=== PATIENT | female | born 1960 | race Caucasian/White ===

== ENCOUNTER 2018-08-27 03:18 | Emergency (ER) | payer BC, OTHER ==
[~2018-08-27] VITALS: Ht 162.6 cm; Wt 63.5 kg
[~2018-08-27 03:18] MED LIST: ZOLOFT50 MG PO
--- OUTSIDE RECORDS SUMMARY | 2018-08-27 03:21 | XMS REPORT | CCD ---
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
--- OUTSIDE RECORDS SUMMARY | 2018-08-27 03:21 | XMS REPORT | Clinical Summary ---
Author Author 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 Last Filed Vital Signs Time Taken Vital Sign Reading 08/10/2018 10:30 PM CDT Blood Pressure 105/72 08/10/2018 10:30 PM CDT Pulse 62 08/10/2018 4:34 PM CDT Temperature 36.6 C (97.9 F) 08/10/2018 10:30 PM CDT Respiratory Rate 17 08/10/2018 10:30 PM CDT Oxygen Saturation 96% - Inhaled Oxygen - Concentration - Weight - - Height - - Body Mass Index - Plan of Treatment Not on file Procedures Comments Procedure Name Priority Date/Time Associated Diagnosis REPORT OF PROCEDURE - 08/14/2018 ENDOSCOPY SCAN 5:00 PM CDT URINALYSIS W/ MICROSCOPIC STAT 08/10/2018 7:16 PM CDT CBC W/PLT COUNT & AUTO STAT 08/10/2018 DIFFERENTIAL 7:15 PM CDT B-TYPE NATRIURETIC FACTOR STAT 08/10/2018 (BNP) 7:15 PM CDT APTT STAT 08/10/2018 7:15 PM CDT PROTHROMBIN TIME/INR STAT 08/10/2018 7:15 PM CDT CBC W/PLT COUNT & AUTO STAT 08/10/2018 DIFFERENTIAL 7:15 PM CDT MAGNESIUM STAT 08/10/2018 7:15 PM CDT COMPREHENSIVE METABOLIC STAT 08/10/2018 PANEL 7:15 PM CDT TROPONIN I STAT 08/10/2018 7:[address] BRAIN WITHOUT IV STAT 08/10/2018 CONTRAST 6:12 PM CDT ED ECG INTERPRETATION Routine 08/10/2018 5:58 PM CDT ECG 12-LEAD Routine 08/10/2018 4:39 PM CDT Procedure Note - Interface, External Ris In - 08/10/2018 6:21 PM CDT Ventricula r Rate 65 BPM Atrial Rate 65 BPM P-R Interval 170 ms QRS Duration 94 ms Q-T Interval 422 ms QTC Calculatio n(Bazett) 438 ms P Sutton 69 degrees R Sutton -56 degrees T Sutton 66 degrees Normal sinus rhythm Incomplete right bundle branch block Left anterior fascicular block Cannot rule out Anterior infarct , age undetermin ed Abnormal ECG No previous ECGs available ECG 12-LEAD STAT 08/10/2018 4:39 PM CDT after 08/26/2017 Results * EKG-SCANNED (08/14/2018 5:00 PM CDT) Narrative Performed At * Urinalysis w/Microscopic (08/10/2018 7:16 PM CDT) Color, UA Light Yellow [facility] Clarity, UA Clear [facility] Specific [place], UA 1.006 1.001 - 1.035 [facility] pH, UA 5.5 5.0 - 8.0 [facility] Protein, UA Negative Negative [facility] Glucose, UA Negative Negative [facility] Ketones, UA 10 mg/dL (A) Negative [facility] Bilirubin, UA Negative Negative [facility] Blood, UA Small (A) Negative [facility] Nitrite, UA Negative Negative [facility] Leukocytes, UA Small (A) Negative [facility] Urobilinogen, UA 0.2 0.2 - 1.0 mg/dL [facility] RBC, UA 2 /HPF [facility] WBC, UA 3 /HPF [facility] Mucus Rare [facility] Squam Epithel, UA 1 /HPF [facility] Specimen Source Urine, Clean Catch [facility] Specimen Urine Performing Organization Address City/State/Zipcode Phone Number [facility] [address] [place] [address] [facility] * CBC with platelet count + automated diff (08/10/2018 7:15 PM CDT) WBC 9.0 3.5 - 10.5 K/L [facility] RBC 4.73 3.93 - 5.22 M/L [facility] Hemoglobin 15.0 11.2 - 15.7 GM/DL [facility] Hematocrit 45.7 (H) 34.1 - 44.9 % [facility] MCV 96.6 (H) 79.4 - 94.8 fL [facility] MCH 31.7 25.6 - 32.2 pg [facility] MCHC 32.8 32.2 - 35.5 GM/DL [facility] RDW 11.7 11.7 - 14.4 % [facility] Platelets 203 150 - 450 K/CU MM [facility] MPV 10.3 9.4 - 12.3 fL [facility] nRBC 0 0 - 0 /100 WBC [facility] % Neutros 63 % [facility] % Lymphs 28 % [facility] % Monos 7 % [facility] % Eos 1 % [facility] % Baso 1 % [facility] # Neutros 5.68 1.56 - 6.13 K/L [facility] # Lymphs 2.53 1.18 - 3.74 K/L [facility] # Monos 0.58 (H) 0.24 - 0.36 K/L [facility] # Eos 0.07 0.04 - 0.36 K/L [facility] # Baso 0.06 0.01 - 0.08 K/L [facility] Immature 0 0 - 1 % [facility] Granulocytes-[facility] Specimen Blood Performing Organization Address City/State/Zipcode Phone Number [facility] [address] [place] [address] [facility] * Troponin I (08/10/2018 7:15 PM CDT) Troponin I <0.01 0.00 - 0.03 ng/mL [facility] Specimen Blood Narrative Performed At Troponin I (TnI) levels must be interpreted in the context of the presenting [facility] symptoms and the clinical findings. Elevated TnI levels indicate myocardial [facility] damage, but are not specific for ischemic heart disease. Elevated TnI levels are seen in patients with other cardiac conditions (including myocarditis and congestive heart failure), and slight TnI elevations occur in patients with other conditions, including sepsis, renal failure, acidosis, acute neurological disease, and persistent tachyarrhythmia. Performing Organization Address City/State/Zipcode Phone Number [address] [address] [phone] [place] [address] * aPTT (08/10/2018 7:15 PM CDT) PTT 29.9 22.5 - 36.0 seconds [facility] Specimen Blood Performing Organization Address City/[facility] Phone Number [address] [address] [phone] * Prothrombin time/INR (08/10/2018 7:15 PM CDT) Protime 12.4 11.7 - 14.7 seconds [facility] INR 0.9 <=5.9 [facility] Specimen Blood Narrative Performed At RECOMMENDED COUMADIN/WARFARIN INR THERAPY RANGES [facility] STANDARD DOSE: 2.0 - 3.0 Includes: PROPHYLAXIS for venous thrombosis, [facility] systemic embolization; TREATMENT for venous thrombosis and/or pulmonary embolus. HIGH RISK: Target INR is 2.5-3.5 for patients with mechanical heart valves. Performing Organization Address [facility] Phone Number [place] [phone] [place] [address] * B-type Natriuretic Factor (BNP) (08/10/2018 7:15 PM CDT) BNP 14 0 - 100 pg/mL [facility] Specimen Blood Performing Organization Address City/[facility] Phone Number [address] [address] [phone] [place] [address] * Magnesium (08/10/2018 7:15 PM CDT) Magnesium 2.2 1.6 - 2.6 mg/dL [facility] Specimen Blood Performing Organization Address City/[facility]/Zipcode Phone Number [address] [address] [facility] * Comprehensive metabolic panel (08/10/2018 7:15 PM CDT) [facility], Total 7.7 6.0 - 8.3 gm/dL [facility] Albumin 4.9 3.5 - 5.0 g/dL [facility] Alkaline Phosphatase 66 40 - 150 U/L [facility] Total Bilirubin 0.3 0.2 - 1.2 mg/dL [facility] Sodium 138 136 - 145 meq/L [facility] Potassium 4.4 3.5 - 5.1 meq/L [facility] Chloride 100 98 - 107 meq/L [facility] CO2 28 22 - 29 meq/L [facility] BUN 12 7 - 21 mg/dL [facility] Creatinine 0.79 0.57 - 1.25 mg/dL [facility] Glucose 101 70 - 105 mg/dL [facility] Calcium 10.0 8.4 - 10.2 mg/dL [facility] AST 20 5 - 34 U/L [facility] ALT 19 6 - 55 U/L [facility] EGFR Comment: INSUFFICIENT CLINICAL mL/min/1.[address] [facility] DATA TO CALCULATE ESTIMATED [facility] GFR. Specimen Blood Performing Organization Address City/State/Zipcode Phone Number [facility] [address] [place] [address] [facility] * CT brain without IV contrast (08/10/2018 6:12 PM CDT) Specimen Narrative Performed At FINAL REPORT [place] CT, BRAIN, WITHOUT CONTRAST INDICATION: LOSS OF CONSCIOUSNESS syncope TECHNIQUE: Noncontrast axial imaging was obtained from the vertex to the skull base. Axial images were reconstructed using a bone algorithm. DOSE REDUCTION: Dose modulation, iterative reconstruction, and/or weight-based adjustment of the mA/kV was utilized to reduce the radiation dose to as low as reasonably achievable. COMPARISON: None. FINDINGS: Cerebral parenchyma: Mild symmetric volume loss. No infarct or hemorrhage. Midline structures: Normally positioned. Cerebellum and brainstem: Commensurate volume loss. Ventricles: Normal volume. Extra-axial spaces: Unremarkable. Calvarium and skull base: Intact. Paranasal sinuses and mastoid air cells: Visible chambers are clear. Orbital contents: Included portions unremarkable. Additional findings: None. IMPRESSION: Chronic involutional changes without acute intracranial abnormality. If there is persistent clinical concern for intracranial pathology, MR examination is recommended for further characterization. Signed: JR Guzman Robert MD Report Verified Date/Time:08/10/2018 18:19:43 Reading Location: [facility] Radiology Reading Room Procedure Note Interface, External Ris In - 08/10/2018 6:[address] REPORT CT, BRAIN, WITHOUT CONTRAST INDICATION: LOSS OF CONSCIOUSNESS syncope TECHNIQUE: Noncontrast axial imaging was obtained from the vertex to the skull base. Axial images were reconstructed using a bone algorithm. DOSE REDUCTION: Dose modulation, iterative reconstruction, and/or weight-based adjustment of the mA/kV was utilized to reduce the radiation dose to as low as reasonably achievable. COMPARISON: None. FINDINGS: Cerebral parenchyma: Mild symmetric volume loss. No infarct or hemorrhage. Midline structures: Normally positioned. Cerebellum and brainstem: Commensurate volume loss. Ventricles: Normal volume. Extra-axial spaces: Unremarkable. Calvarium and skull base: Intact. Paranasal sinuses and mastoid air cells: Visible chambers are clear. Orbital contents: Included portions unremarkable. Additional findings: None. IMPRESSION: Chronic involutional changes without acute intracranial abnormality. If there is persistent clinical concern for intracranial pathology, MR examination is recommended for further characterization. Signed: JR Guzman Robert MD Report Verified Date/Time: 08/10/2018 18:19:43 Reading Location: [facility] Radiology Reading Room Performing Organization Address City/State/Zipcode Phone Number [facility] * ECG/EKG Interpretation (08/10/2018 5:58 PM CDT) Narrative Performed At Dimitri Zaman MD 08/11/20189:57 PM ECG/EKG Interpretation Date/Time: 08/10/2018 7:59 PM Performed by: Dimitri Zaman MD Authorized by: Dimitri Zaman MD The ECG was interpreted by ED physician. The ECG is interpreted as sinus rhythm. Rate is normal rate. Heart rate is 65 BPM. Conduction: conduction normal. ST segments normal. Sutton is normal. ECG reviewed and does not meet STEMI criteria. Patient tolerance: Patient tolerated the procedure well with no immediate complications * Electrocardiogram, 12-lead (08/10/2018 4:39 PM CDT) Specimen Narrative Performed At Ventricular Rate 65 BPM GE MUSE Atrial Rate 65 BPM P-R Interval 170 ms QRS Duration 94 ms Q-T Interval 422 ms QTC Calculation(Bazett) 438 ms P Sutton 69 degrees R Sutton -56 degrees T Sutton 66 degrees Normal sinus rhythm Incomplete right bundle branch block Left anterior fascicular block Cannot rule out Anterior infarct , age undetermined Abnormal ECG No previous ECGs available Confirmed by MD BERRIOS JOSEPH P ([id number]) on 08/11/2018 2:24:53 PM Procedure Note Interface, External Ris In - 08/11/2018 2:25 PM CDT Ventricular Rate 65 BPM Atrial Rate 65 BPM P-R Interval 170 ms QRS Duration 94 ms Q-T Interval 422 ms QTC Calculation(Bazett) 438 ms P Sutton 69 degrees R Sutton -56 degrees T Sutton 66 degrees Normal sinus rhythm Incomplete right bundle branch block Left anterior fascicular block Cannot rule out Anterior infarct , age undetermined Abnormal ECG No previous ECGs available Confirmed by MD BERRIOS JOSEPH P ([id number]) on 08/11/2018 2:24:53 PM Performing Organization Address City/State/Zipcode Phone Number WILLIAM CALDERON after 08/26/2017 Insurance Payer Benefit Subscriber ID Type Phone Address Plan / Group [facility] x[facility] HMO/POS CARE POS [employer] CHO[employer] ajit (Home) [place] [phone]
--- OUTSIDE RECORDS SUMMARY | 2018-08-27 03:21 | XMS REPORT | Continuity of Care Document ---
Author Author [facility] Interface Address Unknown Phone Unavailable Problems Problem Status Onset Date Classification Date Reported Comments Source Final: Other Convulsions 06/15/2013 06/27/2013 [facility] EMU PHASE 1 Active 04/10/2013 [facility] FOLLOW UP 4 WEEKS Active 12/08/2012 [facility] CHEST PAIN Active 11/14/2012 [facility] NEW PT Active 10/30/2012 [facility] 345.11/ EPLIPSY Active 10/26/2012 [facility] Seizure Resolved Problem 12/28/2012 [facility] Final: Tobacco Use Disorder 06/27/2013 [facility] Murmur, heart Resolved Problem 06/27/2013 [facility] Osteoporosis Resolved Problem 06/27/2013 [facility] Seizure Resolved Problem 06/27/2013 [facility] EPILEPSY NOS-INTRACTABLE Active [facility] Medications Medication Details Route Status Patient Instructions Ordering Provider Order Date Source citalopram 10 mg oral tablet 10 mg=1 tab, PO, Daily, # 30 tab, 3 Refill(s) Active 06/08/2013 [facility] Trileptal 600 mg, 2 tab, Route: PO, Drug form: TAB, BID, Dosing Weight 59.545, kg, Start date: 06/04/13 17:00:00, Duration: 30 day, Stop date: 07/04/13 9:00:00Do not crush or chew. (Same as: Trileptal) No Longer Active 06/04/2013 [facility] Keppra 1,500 mg, 3 tab, Route: PO, Drug form: TAB, BID, Dosing Weight 59.545, kg, Start date: 06/04/13 17:00:00, Duration: 30 day, Stop date: 07/04/13 9:00:00(Same as:Keppra) No Longer Active 06/04/2013 [facility] Ibuprofen OTC 1 tab, PO, PRN, 0 Refill(s) Active 06/04/2013 [facility] aspirin 325 mg tablet 325 mg=1 tab, PO, Daily Active 06/04/2013 [facility] Docusate 100 mg, 1 cap, Route: PO, Drug form: CAP, BID, Dosing Weight 59.545, kg, PRN Constipation, Start date: 06/04/13 13:44:00, Duration: 30 day, Stop date: 07/04/13 13:43:00(Same as: Colace) (Do Not Crush) No Longer Active 06/04/2013 [facility] oxcarbazepine 300 MG Oral Tablet [Trileptal] 600 mg=2 tab, PO, BID, 0 Refill(s) No Longer Active 06/04/2013 [facility] Keppra 1,500 mg, PO, BID, 0 Refill(s) No Longer Active 06/04/2013 [facility] Levetiracetam 500 MG Oral Tablet [Keppra] 500 mg, 1 tab, Route: PO, Drug form: TAB, TID, Dosing Weight 59.545, kg, Start date: 06/04/13 13:00:00, Duration: 30 day, Stop date: 07/04/13 9:00:00(Same as:Keppra) Inactive 06/04/2013 [facility] Allergies, Adverse Reactions, Alerts Substance Category Reaction Severity Reaction type Status Date Reported Comments Source Theodore Assertion Drug allergy Active [facility] Immunizations Immunization Date Given Site Status Last Updated Comments Source Results Order Name Results Value Reference Range Date Interpretation Comments Source CHEM PANEL eGFR 112 mL/min/1.73m2 06/04/2013 1Result Comment: The eGFR is calculated using the CKD-EPI formula. In most young, healthy individuals the eGFR will be >90 mL/min/1.73m2. The eGFR declines with age. An eGFR of 60-89 may be normal in some populations, particularly the elderly, for whom the CKD-EPI formula has not been extensively validated. Use of the eGFR is not recommended in the following populations: Individuals with unstable creatinine concentrations, including patients and those with serious co-morbid conditions. Patients with extremes in muscle mass or diet. The data above are obtained from the National Kidney Disease Education Program (NKDEP) which additionally recommends that when the eGFR is used in patients with extremes of body mass index for purposes of drug dosing, the eGFR should be multiplied by the estimated BMI. [facility] CHEM PANEL CO2 25 meq/L 24 - 32 06/04/2013 [facility] CHEM PANEL Chloride Lvl 104 meq/L 95 - 109 06/04/2013 [facility] CHEM PANEL Potassium Lvl 4.0 meq/L 3.5 - 5.1 06/04/2013 [facility] CHEM PANEL Calcium Lvl 8.8 mg/dL 8.5 - 10.5 06/04/2013 [facility] CHEM PANEL ASPARTATE TRANSAMINASE 20 unit/L 0 - 37 06/04/2013 [facility] CHEM PANEL Total Protein 6.9 g/dL 6.4 - 8.4 06/04/2013 [facility] CHEM PANEL Bili Total 0.2 mg/dL 0.2 - 1.3 06/04/2013 [facility] CHEM PANEL BUN 14 mg/dL 7 - 22 06/04/2013 [facility] CHEM PANEL Alk Phos 74 unit/L 39 - 136 06/04/2013 [facility] CHEM PANEL Glucose Lvl 86 mg/dL 70 - 99 06/04/2013 2Interpretive Data: Adult reference range values reflect the clinical guidelines of the [employer]. [facility] CHEM PANEL Albumin Lvl 4.2 g/dL 3.5 - 5.0 06/04/2013 [facility] CHEM PANEL ALANINE AMINOTRANSFERASE 39 unit/L 0 - 65 06/04/2013 [facility] CHEM PANEL Sodium Lvl 136 meq/L 135 - 145 06/04/2013 [facility] CHEM PANEL Creatinine Lvl 0.5 mg/dL 0.5 - 1.4 06/04/2013 [facility] CHEM PANEL A/G Ratio 1.6 0.7 - 1.6 06/04/2013 [facility] CHEM PANEL Globulin 2.7 g/dL 2.0 - 4.0 06/04/2013 [facility] CHEM PANEL AGAP 11.0 meq/L 10.0 - 20.0 06/04/2013 [facility] CHEM PANEL B/C Ratio 28 6 - 25 06/04/2013 [facility] CHEM PANEL Bili Direct 0.1 mg/dL 0.0 - 0.3 06/04/2013 [facility] HEMATOLOGY MPV 8.8 fL 7.4 - 10.4 06/04/2013 [facility] HEMATOLOGY MCHC 34.0 g/dL 32.0 - 36.0 06/04/2013 [facility] HEMATOLOGY Platelet 176 K/CMM 133 - 450 06/04/2013 [facility] HEMATOLOGY RDW 12.9 % 11.5 - 14.5 06/04/2013 [facility] HEMATOLOGY MCV 95.9 fL 81.0 - 99.0 06/04/2013 [facility] HEMATOLOGY MCH 32.6 pg 27.0 - 31.0 06/04/2013 [facility] HEMATOLOGY RBC X 10x6 4.25 M/CMM 4.20 - 5.40 06/04/2013 [facility] HEMATOLOGY Hct 40.7 % 36.0 - 48.0 06/04/2013 [facility] HEMATOLOGY Hgb 13.8 g/dL 12.0 - 16.0 06/04/2013 [facility] HEMATOLOGY WBC X 10x3 5.9 K/CMM 3.7 - 10.4 06/04/2013 [facility] HEMATOLOGY Lymphocytes # 1.5 K/CMM 1.0 - 5.5 06/04/2013 [facility] HEMATOLOGY Segs-Bands # 3.7 K/CMM 1.5 - 8.1 06/04/2013 [facility] HEMATOLOGY Monocytes # 0.5 K/CMM 0.0 - 0.8 06/04/2013 [facility] HEMATOLOGY Segs 63.2 % 45.0 - 75.0 06/04/2013 [facility] HEMATOLOGY Lymphocytes 26.1 % 20.0 - 40.0 06/04/2013 [facility] HEMATOLOGY Monocytes 9.2 % 2.0 - 12.0 06/04/2013 [facility] HEMATOLOGY Eosinophils 0.8 % 0.0 - 4.0 06/04/2013 [facility] HEMATOLOGY Basophils 0.7 % 0.0 - 1.0 06/04/2013 [facility] TOXICOLOGY Trileptal Lvl 27.6 microgram/mL 8.0 - 35.0 06/04/2013 4Result Comment: (Synonym: Oxcarbazepine Metabolite) Test Performed at: [facility] [employer] [facility], [address] [address] [place] [address] Moses Celeste MD [facility] TOXICOLOGY Keppa Lvl 43 microgram/mL 06/04/2013 3Result Comment: Therapeutic Levels: Drug Dosage Trough (mcg/mL) Peak (mcg/mL) 500 mg BID 3.1 - 10.0 10.0 - 25.0 1000 mg BID 4.9 - 37.1 30.0 - 40.0 1500 mg BID 7.0 - 34.0 36.1 - 70.0 Toxic level not established Test Performed at: [facility] [employer] [facility], [address] [place] [id number] Mary Dean MD, FCAP [facility] Vital Signs Vital Sign Value Date Comments Source Temperature Oral (F) 98.4 F 06/08/2013 [facility] Systolic (mm Hg) 106 06/08/2013 [facility] Heart Rate 54 06/08/2013 [facility] Respitory Rate 14 06/08/2013 [facility] Diastolic (mm Hg) 68 06/08/2013 [facility] Temperature Oral (F) 98.2 F 06/08/2013 [facility] Heart Rate 78 06/08/2013 [facility] Respitory Rate 17 06/08/2013 [facility] Systolic (mm Hg) 106 06/08/2013 [facility] Diastolic (mm Hg) 67 06/08/2013 [facility] Heart Rate 73 06/07/2013 [facility] Temperature Oral (F) 98.2 F 06/07/2013 [facility] Systolic (mm Hg) 106 06/07/2013 [facility] Diastolic (mm Hg) 73 06/07/2013 [facility] Respitory Rate 18 06/07/2013 [facility] Height 162.56 cm 06/04/2013 [facility] Weight 59.545 06/04/2013 [facility] BMI Calculated 22.53 06/04/2013 [facility] Height 162.56 cm 11/20/2012 [facility] Weight 61.364 11/20/2012 [facility] Weight 65 11/14/2012 [facility] Height 162.56 cm 11/14/2012 [facility] Encounters Location Location Details Encounter Type Encounter Number Reason For Visit Attending Provider ADM Date DC Date Status Source [facility] Outpatient [id number] NEW PT ALEXANDRO LOYALKA 11/14/[address] [facility] Outpatient [id number] CHEST PAIN ALEXANDRO LOYALKA 11/20/2012 11/20/[address] [facility] Outpatient [id number] 345.11/ EPLIPSY KEE ANGELA 11/27/[address] [facility] Inpatient [id number] KATE WINSTON 06/04/2013 06/08/2013 Active [facility] Inpatient [id number] Kee Angela 06/04/2013 06/08/2013 [facility] Outpatient [id number] FOLLOW UP 4 WEEKS ALEXANDRO MARTINEZ Active [facility] Procedures Procedure Code Date Perfomer Comments Source Total abdominal hysterectomy<sup>1</sup> [id number] 04/18/2000 1approximate age [facility]
--- OUTSIDE RECORDS SUMMARY | 2018-08-27 03:21 | XMS REPORT | Summary of Care ---
Author Organization Unknown Address Unknown Phone Unavailable Encounter Dates Location Diagnoses Discharge Providers Disposition 06/04/2013 [facility] Final: Other Home Prem [facility] [address] [facility] Convulsions John Rothman 06/08/[address] Final: Tobacco John Rothman Use Disorder Reason for Visit EMU PHASE 1 Vital Signs 1 2 3 Most recent to oldest [Reference Range]: 162.56 cm (06/04/2013 09:55:00 [facility] Height 98.4 DegF (06/08/2013 08:53:00 [facility]) 98.2 DegF (06/07/2013 20:49:00 [facility]) 98.2 DegF (06/07/2013 08:31:00 [facility] Temperature Oral [96.4-99.1 DegF] 106 mmHg (06/08/2013 08:53:00 [facility] 106 mmHg (06/07/2013 20:49:00 [facility] 106 mmHg (06/07/2013 08:31:00 [facility] Systolic Blood Pressure [90-140 mmHg] 68 mmHg (06/08/2013 08:53:00 [facility] 67 mmHg (06/07/2013 20:49:00 [facility]) 73 mmHg (06/07/2013 08:31:00 [facility] Diastolic Blood Pressure [60-90 mmHg] 14 BRMIN (06/08/2013 08:53:00 [facility]) 17 BRMIN (06/07/2013 20:49:00 [facility]) 18 BRMIN (06/07/2013 08:31:00 [facility]) Respiratory Rate [14-20 BRMIN] 54 bpm *LOW* (06/08/2013 08:53:00 [facility]) 78 bpm (06/07/2013 20:49:00 [facility]) 73 bpm (06/07/2013 08:31:00 [facility]) Peripheral Pulse Rate [60-100 bpm] 59.545 kg (06/04/2013 09:55:00 [facility]) Weight 22.53 m2 (06/04/2013 09:55:00 [facility]) Body Mass Index Problem List Condition Effective Dates Status Health Status Informant Murmur, Resolved heart(Confirmed) Osteoporosis(Confirm Resolved ed) Seizure(Confirmed) Resolved Allergies, Adverse Reactions, Alerts Status Substance Reaction Severity Active Lyrica Active [facility] Medications Medication Instructions Start Date Stop Date Status aspirin 325 mg 325 mg=1 tab, PO, Daily 06/04/2013 Ordered tablet citalopram 10 mg 10 mg=1 tab, PO, Daily, # 30 tab, 3 06/08/2013 Ordered oral tablet Refill(s) docusate 100 mg, 1 cap, Route: PO, Drug 06/04/2013 06/08/2013 Discontinued form: CAP, BID, Dosing Weight 59.545, kg, PRN Constipation, Start date: 06/04/13 13:44:00, Duration: 30 day, Stop date: 07/04/13 13:43:00 (Same as: Colace) (Do Not Crush) ibuprofen OTC 1 tab, PO, PRN, 0 Refill(s) 06/04/2013 Ordered Keppra 1,500 mg, 3 tab, Route: PO, Drug 06/04/2013 06/05/2013 Discontinued form: TAB, BID, Dosing Weight 59.545, kg, Start date: 06/04/13 17:00:00, Duration: 30 day, Stop date: 07/04/13 9:00:00 (Same as:Keppra) Keppra 1,500 mg, PO, BID, 0 Refill(s) 06/04/2013 06/08/2013 Discontinued Keppra 500 mg oral 500 mg, 1 tab, Route: PO, Drug 06/04/2013 06/04/2013 Discontinued tablet form: TAB, TID, Dosing Weight 59.545, kg, Start date: 06/04/13 13:00:00, Duration: 30 day, Stop date: 07/04/13 9:00:00 (Same as:Keppra) Trileptal 600 mg, 2 tab, Route: PO, Drug 06/04/2013 06/05/2013 Discontinued form: TAB, BID, Dosing Weight 59.545, kg, Start date: 06/04/13 17:00:00, Duration: 30 day, Stop date: 07/04/13 9:00:00 Do not crush or chew.(Same as: Trileptal) Trileptal 300 mg, 1 tab, Route: PO, Drug 06/04/2013 06/04/2013 Canceled form: TAB, BID, Dosing Weight 59.545, kg, Start date: 06/04/13 17:00:00, Duration: 30 day, Stop date: 07/04/13 9:00:00 Do not crush or chew.(Same as: Trileptal) Trileptal 300 mg 600 mg=2 tab, PO, BID, 0 Refill(s) 06/04/2013 06/08/2013 Discontinued oral tablet Results ELECTROLYTES Most recent to 1 oldest [Reference Range]: Sodium Lvl [135-145 136 mEq/L mEq/L] (06/04/2013 10:22:00 [facility]) Potassium Lvl 4.0 mEq/L [3.5-5.1 mEq/L] (06/04/2013 10:22:00 [facility]) Chloride Lvl [95-109 104 mEq/L mEq/L] (06/04/2013 10:22:00 [facility]) CO2 [24-32 mEq/L] 25 mEq/L (06/04/2013 10:22:00 [facility]) AGAP [10.0-20.0 11.0 mEq/L mEq/L] (06/04/2013 10:22:00 [facility]) CHEM PANEL Most recent to 1 oldest [Reference Range]: Creatinine Lvl 0.5 mg/dL [0.5-1.4 mg/dL] (06/04/2013 10:22:00 [facility]) eGFR 112 mL/min/1.73m2 1 *NA* (06/04/2013 10:22:00 [facility]) BUN [7-22 mg/dL] 14 mg/dL (06/04/2013 10:22:00 [facility]) B/C Ratio [6-25] 28 *HI* (06/04/2013 10:22:00 [facility]) Glucose Lvl [70-99 86 mg/dL 2 mg/dL] (06/04/2013 10:22: [facility]) Total Protein 6.9 g/dL [6.4-8.4 g/dL] (06/04/2013 10:22: [facility]) Albumin Lvl [3.5-5.0 4.2 g/dL g/dL] (06/04/2013 10:22: [facility]) Globulin [2.0-4.0 2.7 g/dL g/dL] (06/04/2013 10:22: [facility]) A/G Ratio [0.7-1.6] 1.6 (06/04/2013 10:: [facility]) Calcium Lvl 8.8 mg/dL [8.5-10.5 mg/dL] (06/04/2013 10:22: [facility]) ALT [0-65 unit/L] 39 unit/L (06/04/2013 10:: [facility]) AST [0-37 unit/L] 20 unit/L (06/04/2013 10:22: [facility]) Alk Phos [39-136 74 unit/L unit/L] (06/04/2013 10:: [facility]) Bili Total [0.2-1.3 0.2 mg/dL mg/dL] (06/04/2013 10:22: [facility]) Bili Direct [0.0-0.3 0.1 mg/dL mg/dL] (06/04/2013 10:22: [facility]) 1Result Comment: The eGFR is calculated using [...] from the National Kidney Disease Education Program ( NKDEP) which additionally recommends that when the eGFR is used in patients with extremes of body mass index for purposes of drug dosing, the eGFR should be mul tiplied by the estimated BMI. 2Interpretive Data: Adult reference range values reflect the clinical guidelines of the [employer]. TOXICOLOGY Most recent to 1 oldest [Reference Range]: Keppa Lvl 43 microgram/mL 3 *NA* (06/04/2013 10:22:00 [facility]) Trileptal Lvl 27.6 microgram/mL 4 [8.0-35.0 *NA* microgram/mL] (06/04/2013 10:22:00 [facility]) 3Result Comment: Therapeutic Levels: Drug Dosage Trough (mcg/mL) Peak (mcg/mL) 500 mg BID 3.1 - 10.0 10.0 - 25.0 1000 mg BID 4.9 - 37.1 30.0 - 40.0 1500 mg BID 7.0 - 34.0 36.1 - 70.0 Toxic level not established Test Performed at: [facility], [address] [place] [id number] Mary Dean MD, FCAP 4Result Comment: (Synonym: Oxcarbazepine Metabolite) Test Performed at: [facility], [address] [place] [address] [place] [address] K Booker GALLARDO HEMATOLOGY Most recent to 1 oldest [Reference Range]: WBC [3.7-10.4 K/CMM] 5.9 K/CMM (06/04/2013 10:22:00 [facility]) RBC [4.20-5.40 4.25 M/CMM M/CMM] (06/04/2013 10:22:00 [facility]) Hgb [12.0-16.0 g/dL] 13.8 g/dL (06/04/2013 10:22:00 [facility]) Hct [36.0-48.0 %] 40.7 % (06/04/2013 10:22:00 [facility]) MCV [81.0-99.0 fL] 95.9 fL (06/04/2013 10:22:00 [facility]) MCH [27.0-31.0 pg] 32.6 pg *HI* (06/04/2013 10:22:00 [facility]) MCHC [32.0-36.0 34.0 g/dL g/dL] (06/04/2013 10:22:00 [facility]) RDW [11.5-14.5 %] 12.9 % (06/04/2013 10:22:00 [facility]) Platelet [133-450 176 K/CMM K/CMM] (06/04/2013 10:22:00 [facility]) MPV [7.4-10.4 fL] 8.8 fL (06/04/2013 10:22:00 [facility]) Segs [45.0-75.0 %] 63.2 % (06/04/2013 10:22:00 [facility]) Lymphocytes 26.1 % [20.0-40.0 %] (06/04/2013 10:22:00 [facility]) Monocytes [2.0-12.0 9.2 % %] (06/04/2013 10:22:00 [facility]) Eosinophils [0.0-4.0 0.8 % %] (06/04/2013 10:22:00 [facility]) Basophils [0.0-1.0 0.7 % %] (06/04/2013 10:22:00 [facility]) Segs-Bands # 3.7 K/CMM [1.5-8.1 K/CMM] (06/04/2013 10:22:00 [facility]) Lymphocytes # 1.5 K/CMM [1.0-5.5 K/CMM] (06/04/2013 10:22:00 [facility]) Monocytes # [0.0-0.8 0.5 K/CMM K/CMM] (06/04/2013 10:22:00 [facility]) Medications Administered During Your Visit No data available for this section Immunizations No data available for this section Procedures Procedure Type Body Site Date of Procedure Related Diagnosis Total abdominal hysterectomy1 2000 1approximate age Social History Social History Type Response Employment/School Status: Employed. 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 Highest education level: High school. Operates hazardous equipment: No. Smoking Status Use: Current some day smoker. Type: Cigarettes. 10 per day. 30 year(s). Started age 22.0 Years. Previous treatment: None. Ready to change: Yes. Household tobacco concerns: No. Tobacco smoke exposure: Lives with someone who smokes. Did the Patient Smoke Cigarettes Anytime During the Last 365 Days? Yes. Cessation Counseling Provided? No.
--- OUTSIDE RECORDS SUMMARY | 2018-08-27 03:21 | XMS REPORT | CCD ---
Author Author Auto Generated Organization [facility] Address Unknown Phone Unavailable Care Team Providers Care Bottling Equipment Sales Representative Name Role Phone John Rothman RP Allergies, Adverse Reactions, Alerts Substance Reaction Status NKDA Active Problem List Condition Effective Dates Status Seizure Resolved
--- OUTSIDE RECORDS SUMMARY | 2018-08-27 03:21 | XMS REPORT | CCD ---
Author Author Auto Generated Organization [facility] Address Unknown Phone Unavailable Care Team Providers Care Latex Ribbon Machine Operator Name Role Phone Robel Vogel RP Allergies, Adverse Reactions, Alerts Substance Reaction Status NKDA Active Problem List Condition Effective Dates Status Seizure Resolved
--- OUTSIDE RECORDS SUMMARY | 2018-08-27 03:21 | XMS REPORT ---
Author Author [facility] Address Unknown Phone Unavailable Care Team Providers Care Pipe Machine Operator Name Role Phone JOSE M ESTEVEZ Unavailable Unavailable Problems This patient has no known problems. Allergies, Adverse Reactions, Alerts This patient has no known allergies or adverse reactions. Medications This patient has no known medications. Results Test Description Test Time Test Comments Text Results Atomic Results Result Comments APTT 2018-08-10 20:00:00 PARTIAL THROMBOPLASTIN TIME (NALLELY) (test tnjg=243) 29.9 seconds 22.5-36.0 PROTHROMBIN TIME/[id number] 19:58:00* Test Item Value Reference Range Comments PROTIME (NALLELY) (test xiep=625) 12.4 seconds 11.7-14.7 INR (ZULMAAKER) (test fozj=423) 0.9 <=5.9 RECOMMENDED COUMADIN/WARFARIN INR THERAPY RANGESSTANDARD DOSE: 2.0 - 3.0 Inclu eladio: PROPHYLAXIS for venous thrombosis, systemic embolization; TREATMENT for polina ous thrombosis and/or pulmonary embolus.HIGH RISK: Target INR is 2.5-3.5 for pat ients with mechanical heart valves.TROPONIN [id number] 19:55:00* Test Item Value Reference Range Comments TROPONIN I (ZULMAAKER) (test cild=387) < ng/mL 0.00-0.03 Troponin I (TnI) levels must be interpreted in the context of the presenting sym ptoms and the clinical findings. Elevated TnI levels indicate myocardial damage, but are not specific for ischemic heart disease. Elevated TnI levels are seen in patients with other cardiac conditions (including myocarditis and congestive h eart failure), and slight TnI elevations occur in patients with other conditions , including sepsis, renal failure, acidosis, acute neurological disease, and per sistent tachyarrhythmia.B-TYPE NATRIURETIC FACTOR (BNP)2018-08-10 19:55:00* Test Item Value Reference Range Comments B-TYPE NATRIURETIC PEPTIDE (BEAKER) (test zenv=479) 14 pg/mL 0-100 COMPREHENSIVE METABOLIC [id number] 19:51:00* Test Item Value Reference Range Comments TOTAL PROTEIN (BEAKER) (test trsq=608) 7.7 gm/dL 6.0-8.3 ALBUMIN (BEAKER) (test hwsn=2373) 4.9 g/dL 3.5-5.0 ALKALINE PHOSPHATASE (BEAKER) (test bhfc=968) 66 U/L 40-150 BILIRUBIN TOTAL (BEAKER) (test jouv=498) 0.3 mg/dL 0.2-1.2 SODIUM (BEAKER) (test xmnc=835) 138 meq/L 136-145 POTASSIUM (BEAKER) (test eqwp=893) 4.4 meq/L 3.5-5.1 CHLORIDE (BEAKER) (test dzlh=693) 100 meq/L 98-107 CO2 (BEAKER) (test gijl=704) 28 meq/L 22-29 BLOOD UREA NITROGEN (BEAKER) (test vtim=677) 12 mg/dL 7-21 CREATININE (BEAKER) (test lxag=015) 0.79 mg/dL 0.57-1.25 GLUCOSE RANDOM (BEAKER) (test kfzc=092) 101 mg/dL 70-105 CALCIUM (BEAKER) (test ygpv=275) 10.0 mg/dL 8.4-10.2 AST (SGOT) (BEAKER) (test njoe=132) 20 U/L 5-34 ALT (SGPT) (BEAKER) (test lzjp=621) 19 U/L 6-55 EGFR (BEAKER) (test bzys=3462) mL/min/1.73 sq m INSUFFICIENT CLINICAL DATA TO CALCULATE ESTIMATED GFR. [id number] 19:49:00* Test Item Value Reference Range Comments MAGNESIUM (BEAKER) (test qjmu=518) 2.2 mg/dL 1.6-2.6 URINALYSIS W/ [id number] 19:39:00* Test Item Value Reference Range Comments COLOR (BEAKER) (test ecoi=297) Light Yellow CLARITY (BEAKER) (test fanr=724) Clear SPECIFIC GRAVITY UA (BEAKER) (test rmjq=833) 1.006 1.001-1.035 PH UA (BEAKER) (test sksz=984) 5.5 5.0-8.0 PROTEIN UA (BEAKER) (test iexs=660) Negative Negative GLUCOSE UA (BEAKER) (test atmj=955) Negative Negative KETONES UA (BEAKER) (test lexl=417) 10 mg/dL Negative BILIRUBIN UA (BEAKER) (test jucb=634) Negative Negative BLOOD UA (BEAKER) (test ndhl=833) Small Negative NITRITE UA (BEAKER) (test gqnt=551) Negative Negative LEUKOCYTE ESTERASE UA (BEAKER) (test wrgm=541) Small Negative UROBILINOGEN UA (BEAKER) (test wyrs=234) 0.2 mg/dL 0.2-1.0 RBC UA (BEAKER) (test ewqz=780) 2 /HPF WBC UA (BEAKER) (test njzb=633) 3 /HPF MUCUS (BEAKER) (test fzls=0849) Rare SQUAMOUS EPITHELIAL (BEAKER) (test gytc=393) 1 /HPF SOURCE(BEAKER) (test bmra=0858) Urine, Clean Catch CBC W/PLT COUNT & AUTO [id number] 19:33:00* Test Item Value Reference Range Comments WHITE BLOOD CELL COUNT (BEAKER) (test zvvz=899) 9.0 K/ L 3.5-10.5 RED BLOOD CELL COUNT (BEAKER) (test lwbf=489) 4.73 M/ L 3.93-5.22 HEMOGLOBIN (BEAKER) (test gwun=841) 15.0 GM/DL 11.2-15.7 HEMATOCRIT (BEAKER) (test adfa=930) 45.7 % 34.1-44.9 MEAN CORPUSCULAR VOLUME (BEAKER) (test rogs=585) 96.6 fL 79.4-94.8 MEAN CORPUSCULAR HEMOGLOBIN (BEAKER) (test aqzg=652) 31.7 pg 25.6-32.2 MEAN CORPUSCULAR HEMOGLOBIN CONC (BEAKER) (test atci=795) 32.8 GM/DL 32.2-35.5 RED CELL DISTRIBUTION WIDTH (BEAKER) (test ntqh=971) 11.7 % 11.7-14.4 PLATELET COUNT (BEAKER) (test vsda=671) 203 K/CU MM 150-450 MEAN PLATELET VOLUME (BEAKER) (test kmax=115) 10.3 fL 9.4-12.3 NUCLEATED RED BLOOD CELLS (BEAKER) (test onyg=931) 0 /100 WBC 0-0 NEUTROPHILS RELATIVE PERCENT (BEAKER) (test ucwm=271) 63 % LYMPHOCYTES RELATIVE PERCENT (BEAKER) (test vphj=403) 28 % MONOCYTES RELATIVE PERCENT (BEAKER) (test pybp=870) 7 % EOSINOPHILS RELATIVE PERCENT (BEAKER) (test ordo=939) 1 % BASOPHILS RELATIVE PERCENT (BEAKER) (test gkrs=008) 1 % NEUTROPHILS ABSOLUTE COUNT (BEAKER) (test zptr=669) 5.68 K/ L 1.56-6.13 LYMPHOCYTES ABSOLUTE COUNT (BEAKER) (test zzvh=728) 2.53 K/ L 1.18-3.74 MONOCYTES ABSOLUTE COUNT (BEAKER) (test mzhf=927) 0.58 K/ L 0.24-0.36 EOSINOPHILS ABSOLUTE COUNT (BEAKER) (test jpzi=094) 0.07 K/ L 0.04-0.36 BASOPHILS ABSOLUTE COUNT (BEAKER) (test fdgg=425) 0.06 K/ L 0.01-0.08 IMMATURE GRANULOCYTES-RELATIVE PERCENT (BEAKER) (test szji=7181) 0 % 0-1 CT, BRAIN, WITHOUT [id number] 18:19:00Reason for exam:->LOSS OF CONSCIOUSNESSIs the patient ?->NoWhat is the patient's sedation requirement?->No SedationFINAL REPORT CT, BRAIN, WITHOUT CONTRAST INDICATION: LOSS OF CONSCIOUSNESSsyncope TECHNIQUE: Noncontrast axial imaging was obtained from the vertex to the skull base. Axial images were reconstructed using a bone algorithm. DOSE REDUCTION: Dose modulation, iterative reconstruction, and/or weight-based adjustment of the mA/kV was utilized to reduce the radiation dose to as low as reasonably achievable. COMPARISON: None. FINDINGS: Cerebral parenchyma: Mild symmetric volume loss. No infarct or hemorrhage.Midline structures: Normally positioned.Cerebellum and brainstem: Commensurate volume loss.Ventricles: Normal volume.Extra-axial spaces: Unremarkable. Calvarium and skull base: Intact.Paranasal sinuses and mastoid air cells: Visible chambers are clear.Orbital contents: Included portions unremarkable. Additional findings: None. IMPRESSION: Chronic involutional changes without acute intracranial abnormality. If there is persistent clinical concern for intracranial pathology, MR examination is recommended for further characterization. Signed: JR Cole Robert MDReport Verified Date/Time: 08/10/2018 18:19:43 Reading Location: [facility] Radiology Reading Room
--- OUTSIDE RECORDS SUMMARY | 2018-08-27 03:21 | XMS REPORT | CCD ---
Author Author Auto Generated Organization [facility] Address Unknown Phone Unavailable Care Team Providers Care Market President Name Role Phone Robel Vogel RP Allergies, Adverse Reactions, Alerts Substance Reaction Status NKDA Active Problem List Condition Effective Dates Status Seizure Resolved Vital Signs Most recent to oldest [Reference Range]: 1 Height 162.56 cm (11/20/2012 07:52:00) Weight 61.364 kg (11/20/2012 07:52:00)
[2018-08-27] MEDS ORDERED: SODIUM CHLORIDE 0.9% 1000ML 1,000 ML IV STA (03:33)
[2018-08-27] MEDS ORDERED: MECLIZINE HCL 12.5 MG TAB PO ONE (03:45)
[2018-08-27 04:22] LABS: BASOPHILS % 0.6 % (0.0-1.0); EOSINOPHILS # (AUTO) 0.1 (0.0-0.4); EOSINOPHILS % 1.7 % (0.0-6.0); HEMATOCRIT 42.4 % (34.2-44.1); HEMOGLOBIN 14.3 g/dL (12.0-16.0); LYMPHOCYTES # (AUTO) 2.5 (1.0-3.2); LYMPHOCYTES % 35.9 % (18.0-39.1); MEAN CORPUSCULAR HEMOGLOBIN 31.8 pg (28-32); MEAN CORPUSCULAR HGB CONC 33.7 g/dL (31-35); MEAN CORPUSCULAR VOLUME 94.2 fL (81-99); MONOCYTES # (AUTO) 0.7 (0.2-0.8); MONOCYTES % 9.5 % (4.4-11.3); NEUTROPHILS # (AUTO) 3.7 (2.1-6.9); NEUTROPHILS % 51.9 % (38.7-80.0); PLATELET COUNT 198 x10e3/uL (140-360); RED CELL DISTRIBUTION WIDTH 11.8 % (11.7-14.4)
[2018-08-27 04:24] LABS: AMPHETAMINES SCREEN,URINE NEGATIVE (NEGATIVE); BENZODIAZEPINES SCREEN,URINE NEGATIVE (NEGATIVE); CLARITY,URINE CLEAR (CLEAR); COLOR,URINE YELLOW (YELLOW); KETONES,URINE NEGATIVE (NEGATIVE); LEUKOCYTE ESTERASE ,URINE NEGATIVE (NEGATIVE); NITRITE,URINE NEGATIVE (NEGATIVE); PHENCYCLIDINE SCREEN,URINE NEGATIVE (NEGATIVE); PROTEIN,URINE DIPSTICK NEGATIVE (NEGATIVE)
[2018-08-27 04:25] LABS: BILIRUBIN,URINE NEGATIVE (NEGATIVE); URINE UROBILINOGEN 0.2 mg/dL (0.2 - 1)
--- NOTE | 2018-08-27 04:26 | Diagnostic Imaging Report ---
CT BRAIN WO HISTORY: Dizziness, headache COMPARISON: Report from head CT dated 11/25/2011 (images not available at time of dictation) TECHNIQUE: Noncontrast axial scans were obtained from skull base to the vertex. Coronal and sagittal reconstructions obtained from the axial data. One or more of the following dose reduction techniques were used: Automated exposure control, adjustment of the mA and/or kV according to patient size, and/or utilization of iterative reconstruction technique. DISCUSSION: Scalp/Skull: Unremarkable. Brain sulci: Appropriate for patient's age. Ventricles: Normal in size and configuration. No hydrocephalus. Extra-axial spaces: No masses or fluid collections. Parenchyma: Mild carotid siphon calcifications are present. No mass, hemorrhage, or large vascular territory acute infarct. Dural sinuses: No abnormal densities. Sellar/Suprasellar region: Intact. Skull base: Intact. Incidental findings: There is mild mucosal thickening in the bilateral sphenoid sinuses. IMPRESSION: No acute intracranial abnormalities. Signed by: Dr. Melchor Nunn M.D. on 08/27/2018 4:23 AM
[2018-08-27 04:30] LABS: BACTERIA,URINE RARE /HPF; EPITHELIAL CELLS,URINE FEW /LPF; HYALINE CASTS 0-1 (0-1); WBC,URINE (MAN) 0-5 /HPF (0-5)
[2018-08-27 04:39] LABS: ALANINE AMINOTRANSFERASE 22 IU/L (0-55); ALBUMIN/GLOBULIN RATIO 1.4 (0.8-2.0); ALKALINE PHOSPHATASE 65 IU/L (40-150); ANION GAP 13.3 mmol/L (8-16); BLOOD UREA NITROGEN 17 mg/dL (7-26); BUN/CREATININE RATIO 23 (6-25); CALCIUM 9.9 mg/dL (8.4-10.2); CARBON DIOXIDE 26 mmol/L (22-29); CHLORIDE 105 mmol/L (98-107); CREATINE KINASE 42 IU/L (29-168); CREATININE, SERUM 0.75 mg/dL (0.57-1.11); EST GLOMERULAR FILTRATION RATE > 60 ML/MIN (60-); GLUCOSE 95 mg/dL (74-118); POTASSIUM 4.3 mmol/L (3.5-5.1); SODIUM 140 mmol/L (136-145)
[2018-08-27 05:38] VITALS: BP 112/71
== END 2018-08-27 05:48 | disposition home or self-care (01) ==
LOC: ER 03:18
DX: R42 Dizziness and giddiness (principal); H81.399 Other peripheral vertigo, unspecified ear; R51 Headache
CPT/HCPCS: 36415; 70450; 80053; 80307; 81001; 82550; 82553; 84484; 85025; 93005; 99284; J7030; J8597

== ENCOUNTER 2019-10-28 17:14 | Emergency (ER) | payer BC, OTHER ==
[~2019-10-28] VITALS: Ht 162.6 cm; Wt 63.5 kg
[2019-10-28] MEDS ORDERED: HYDROCODONE/APAP 7.5MG-325MG 1 EA TAB PO NR (18:00)
--- NOTE | 2019-10-28 18:38 | Diagnostic Imaging Report ---
Exam: Left ankle 3 views and leg 2 views History: Pain Comparison: None. Findings: Age-indeterminate punctate avulsion of the distal fibula. Joint spaces preserved. Calcaneal enthesophyte at the Achilles insertion. Impression: Age-indeterminate punctate avulsion of the distal fibula Signed by: Dr. Henrique Campbell M.D. on 10/28/2019 6:34 PM
--- NOTE | 2019-10-28 19:04 | Diagnostic Imaging Report ---
Examination: CT head without contrast Clinical Indication: Fall with loss of consciousness. Technique: Transaxial noncontrast images from the skull base through the vertex were obtained. Sagittal and coronal reformatted images were done. Dose modulation, iterative reconstruction, and/or weight based adjustment of the mA/kV was utilized to reduce the radiation dose to as low as reasonably achievable. Comparison: Head CT dated August 27, 2018. Findings: Scalp: No abnormalities. Bones: Intact. No fractures. No blastic or lytic lesions. Brain sulci: Appropriate for patient's age. Ventricles: Normal in size and configuration. No hydrocephalus. Extra-axial space: No abnormalities. Parenchyma: No abnormal densities. No masses, hemorrhage, or acute or chronic cortical based vascular insults. Suprasellar region: No abnormalities. Craniocervical junction: The foramen magnum is patent. No Chiari one malformation. Impression: No new or acute intracranial abnormality when compared to prior head CT dated August 27, 2018. Signed by: Dr. Millicent Allison M.D. on 10/28/2019 7:00 PM
--- NOTE | 2019-10-28 22:57 | Emergency Department Note ---
History of Present Illnes History of Present Illness Chief Complaint: Extremity Trauma/Pain History of Present Illness This is a 59 year old female arrived to the ED with left ankle pain after falling off of a curb, patient states she might of hit her head. Patient denies any loss of consciousness status or any weakness to her extremities. Historian: Patient Arrival Mode: Car Onset (how long ago): hour(s) Severity: mild Onset quality: gradual Duration (how long): hour(s) Timing of current episode: intermittent Chronicity: new Context: Reports trauma/injury Relieving factors: none Past Medical/Family History Physician Review I have reviewed the patient's past medical and family history. Any updates have been documented here. Past Medical History Recent Fever: No Clinical Suspicion of Infectio: No New/Unexplained Change in Ment: No Past Medical History: Anxiety, Depression Other Medical History: ANXIETY VERTIGO Past Surgical History: Hysterectomy Social History Physically hurt or threatened: No Other Last Tetanus: NO Physical Exam Related Data Allergies: Coded Allergies: pregabalin (Verified Allergy, Unknown, 08/27/18) Triage Vital Signs Vital Signs Date Time Temp Pulse Resp B/P (MAP) Pulse Ox O2 Delivery O2 Flow Rate FiO2 10/28/19 17:56 99.3 79 18 116/88 100 Room Air Vital signs reviewed: Yes Physical Exam CONSTITUTIONAL Constitutional: Present well-developed, Present well-nourished HENT HENT: Present normocephalic, Present atraumatic, Present oropharynx clear/moist, Present nose normal HENT L/R: Present left ext ear normal, Present right ext ear normal EYES Eyes: Reports PERRL, Reports conjunctivae normal NECK Neck: Present ROM normal PULMONARY Pulmonary: Present effort normal, Present breath sounds normal CARDIOVASCULAR Cardiovascular: Present regular rhythm, Present heart sounds normal, Present capillary refill normal, Present normal rate GASTROINTESTINAL Abdominal: Present soft, Present nontender, Present bowel sounds normal GENITOURINARY Genitourinary: Present exam deferred SKIN Skin: Present warm, Present dry MUSCULOSKELETAL Musculoskeletal: Present tenderness, Present swelling NEUROLOGICAL Neurological: Present alert, Present oriented x 3, Present no gross motor or sensory deficits PSYCHOLOGICAL Psychological: Present mood/affect normal, Present judgement normal Results Imaging Imaging results reviewed: Yes Assessment & Plan Medical Decision Making MDM 59-year-old female arrived to the ED with ankle pain after mechanical fall, imaging unremarkable. Patient initially seen by Dr. Abarca and I provided discharge instructions for the patient. Assessment & Plan Final Impression: (1) Ankle sprain Depart Disposition: HOME, SELF-CARE Last Vital Signs Date Time Temp Pulse Resp B/P (MAP) Pulse Ox O2 Delivery O2 Flow Rate FiO2 10/28/19 17:56 99.3 79 18 116/88 100 Room Air Home Meds Reported Medications Sertraline Hcl (ZOLOFT) 50 Mg Tablet, 50 MG PO DAILY, #30 TAB 11/16/14 Medications in the ED Acetaminophen/ Hydrocodone Bitart 1 ea NOW PO Last administered on 10/28/19at 18 :34; Admin Dose 1 EA; Start 10/28/19 at 18:00; Stop 10/28/19 at 18:59; Status DC CORNELL ANDERSON DO Oct 28, 2019 22:57
== END 2019-10-28 22:13 | disposition home or self-care (01) ==
LOC: ER 18:00
DX: S93.402A Sprain of unspecified ligament of left ankle, initial encounter (principal); S00.83XA Contusion of other part of head, initial encounter; W17.89XA Other fall from one level to another, initial encounter; Y93.01 Activity, walking, marching and hiking; Y92.480 Sidewalk as the place of occurrence of the external cause
CPT/HCPCS: 70450; 99283

== ENCOUNTER 2020-03-15 09:11 | Inpatient (IN) | payer BC, OTHER ==
[~2020-03-15] VITALS: Ht 162.6 cm; Wt 61.2 kg
[2020-03-15] MEDS ORDERED: SODIUM CHLORIDE 0.9% 1000ML 1,000 ML IV STA (09:18)
--- OUTSIDE RECORDS SUMMARY | 2020-03-15 09:27 | XMS REPORT | Continuity of Care Document ---
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 Name Role Phone NONSTAFF PCP Unavailable Capri ALFORD Attphys Unavailable Idalia Dowell MD Attphys Michelle Rosa DO Attphys MARISSA DOBBS Attphys Unavailable Juan M WALKER Attphys Unavailable JOSE M ESTEVEZ Attphys Unavailable Irais Parker Attphys Capri Rothman Admphys Payers Payer Name Policy Type Policy Number Effective Date Expiration Date S [facility] [employer] Ppo [id number] 2013 00:00:00 [facility] Problems Condition Name Condition Details Condition Category Status Onset Date Resolution Date Last Treatment Date Treating Clinician Comments Source EMU PHASE 1 EMU PHASE 1 Active 04/10/2013 [facility] Diagnosis Active 2013-04-10 00:00:00 2013-06-05 10:22:00 [facility] FOLLOW UP 4 WEEKS FOLL OW UP 4 WEEKS Active 12/08/2012 [facility] Diagnosis Active 2012-12-08 00:00:00 2012-12 08:54:00 [facility] CHEST PAIN CHES T PAIN Active 11/14/2012 [facility] Diagnosis Active 2012-11-14 00:00:00 2012-11-24 17:09:00 Trinh Zayas NEW PT NEW PT Active 10/30/2012 [facility] Diagnosis Active 2012-10-30 00:00:00 2012-11-14 13:23:00 Trinh Zayas 345.11/ EPLIPSY 345. 11/ EPLIPSY Active 10/26/2012 [facility] Diagnosis Active 2012-10-26 00:00:00 2012-11-27 1 1:53:00 Trinh Zayas Sprain of ankle Problem Active [facility] Final: Tobacco Use Disorder Fi nal: Tobacco Use Disorder 06/27/2013 [facility] Problem 2013-06-27 14 :41:26 Trinh Zayas Seizure Seiz ure Resolved Problem 12/28/2012 [facility] Problem Resolved 2012-12-28 20:47:29 Pr basilio Zayas Heart murmur (finding) Hear t murmur (finding) Resolved Problem 06/27/2013 [facility] Problem Resolved 2013-06-27 14:41:26 Trinh Zayas Osteoporosis (disorder) Oste oporosis (disorder) Resolved Problem 06/27/2013 [facility] Problem Resolved 2013-06-27 14:41:26 Trinh Zayas Seizure (finding) Seiz ure (finding) Resolved Problem 06/27/2013 [facility] Problem Resolved 2013-06-27 1 4:41:26 Trinh Zayas Convulsive [place] Mal Seizure With Intractable Seizure 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 08/08/2013 [facility] Problem Active 2013-08-08 17:03:14 M alicia Zayas Acute Upper Respiratory Infection Acute Upper Respiratory Infection Active 06/12/2013 [facility] Problem Active 2013-06-12 16:48:01 Trinh Zayas Abnormal Glucose Abno rmal Glucose Active 08/08/2013 [facility] Problem Active 2013-08-08 17:03:14 M alicia Zayas 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 [facility] Problem Active 2013-08-08 17:03:14 Trinh Zayas Anxiety Disorder NOS Anxi ety Disorder NOS Active 08/08/2013 [facility] Problem Active 2013-08-08 17:03:14 Trinh Zayas EPILEPSY NOS-INTRACTABLE EPIL EPSY NOS-INTRACTABLE Active [facility] Diagnosis Active 2013-06-05 10:22:00 [facility] Final: Other Convulsions Cleo l: Other Convulsions 06/15/2013 06/27/2013 [facility] Problem 2013-05 03:56:23 2013-06-27 14:41:26 2013-06-27 14:41:26 [facility] Allergies, Adverse Reactions, Alerts Allergy Name Allergy Type Status Severity Reaction(s) Onset Date Inacti ve Date Treating Clinician Comments Source Pregabalin Propensity to adverse reactions Active Othe r (See Comments) 2018-11-15 00:00:00 Palpitation [facility] Lyrica Lyrica Active [facility] ermann Lyrica CAPS Lyrica CAPS Active [facility] Aspirin TABS Aspirin TABS Active [facility] Family History Family Member Diagnosis Comments Start Date Stop Date Source Unknown Family Member Family History 2012-10-14 04:48:51 2 04:48:51 [facility] Social History Social Habit Start Date Stop Date Quantity Comments Source Sex Assigned At [facility] Social History 2013-06-04 19:23:18 2013-06-04 19:23:18 [facility] Medications Ordered Medication Name Filled Medication Name Start Date Stop Da te Current Medication? Ordering Clinician Indication Dosage Frequency Signature (SIG) Comments Components Source Escitalopram Oxalate 5 MG Oral Tablet 2013-08-08 05:00:00 Y es ; Start Date: 08/08/2013; End Date: (Active) [facility] BusPIRone HCl 15 MG Oral Tablet 2013-06-11 06:00:00 Yes ; Start Date: 06/11/2013 (Active) [facility] citalopram 10 mg oral tablet 2013-06-08 15:31:00 Yes 10 mg = 1 tab, PO, Daily, # 30 tab, 3 Refill(s) Memoria pato Zayas Trileptal 2013-06-04 23:00:00 No 600 mg, 2 tab, Route: PO, Drug form: TAB, BID, Dosing Weight 59.545, kg, Start date: 06/04/13 17:00:00, Duration: 30 day, Stop date: 07/04/13 9:00:00Do not crush or chew. (Same as: Trileptal) [facility] Keppra 2013-06-04 23:00:00 No 1,500 mg, 3 tab, Route: PO, Drug form: TAB, BID, Dosing Weight 59.545, kg, Start date: 06/04/13 17:00:00, Duration: 30 day, Stop date: 07/04/13 9:00:00(Same as:Paul) [facility] Ibuprofen 2013-06-04 20:31:00 Yes OT C 1 tab, PO, PRN, 0 Refill(s) [facility] aspirin 325 mg tablet 2013-06-04 20:31:00 Yes 325 mg = 1 tab, PO, Daily [facility] Docusate 2013-06-04 19:44:00 No 100 mg, 1 cap, Route: PO, Drug form: CAP, BID, Dosing Weight 59.545, kg, PRN Constipation, Start date: 06/04/13 13:44:00, Duration: 30 day, Stop date: 07/04/13 13:43:00(Same as: Colace) (Do Not Crush) [facility] oxcarbazepine 300 MG Oral Tablet [Trileptal] 2013-06-04 19:38:00 No 600 mg = 2 tab, PO, BID, 0 Refill(s) Mem orial [facility] Miller 2013-06-04 19:38:00 No 1,500 mg, PO, BID, 0 Refill(s) [facility] Levetiracetam 500 MG Oral Tablet [Keppra] 2013-06-04 19:00:00 No 500 mg, 1 tab, Route: PO, Drug form: TAB, TID, Dosing Weight 59.545, kg, Start date: 06/04/13 13:00:00, Duration: 30 day, Stop date: 07/04/13 9:00:00(Same as:Paul) [facility] Cefdinir 300 MG Oral Capsule 2013-04-14 06:00:00 Yes ; Start Date: 04/14/2013; End Date: (Active) [facility] OXcarbazepine 300 MG Oral Tablet 2012-11-30 05:00:00 Yes ; Start Date: 11/30/2012; End Date: (Active) [facility] LevETIRAcetam 500 MG Oral Tablet 2012-11-13 18:32:09 Yes (Active) Trinh Zayas LevETIRAcetam 500 MG Oral Tablet Yes ; Start Date: ; End Date: (Active) Trinh Zayas Sertraline Hcl (Zoloft) 50 Mg TABLET Sertraline Hcl (Zoloft) 50 Mg TABLET Yes 50 Daily [facility] Vital Signs Vital Name Observation Time Observation Value Comments Source Weight 2019-10-28 17:56:00 140 [lb_av] [facility] BMI (Body Mass Index) 2019-10-28 17:56:00 24.0 kg/m2 [facility] Temperature Oral (F) 2013-06-08 14:53:00 98.4 F [facility] [place] Systolic (mm Hg) 2013-06-08 14:53:00 [facility] Heart Rate 2013-06-08 14:53:00 [facility] Respitory Rate 2013-06-08 14:53:00 [facility] [place] Diastolic (mm Hg) 2013-06-08 14:53:00 Mem [facility] Temperature Oral (F) 2013-06-08 02:49:00 98.2 F [facility] Heart Rate 2013-06-08 02:49:00 [facility] Respitory Rate 2013-06-08 02:49:00 [facility]ori [facility] [place] Systolic (mm Hg) 2013-06-08 02:49:00 Marcus [facility] [place] Diastolic (mm Hg) 2013-06-08 02:49:00 Mem o[facility] [place] Heart Rate 2013-06-07 14:31:00 [facility] Temperature Oral (F) 2013-06-07 14:31:00 98.2 F [facility] Systolic (mm Hg) 2013-06-07 14:31:00 Marcus [facility] [place] Diastolic (mm Hg) 2013-06-07 14:31:00 [facility] [place] Respitory Rate 2013-06-07 14:31:00 [facility]ori [facility] [place] Height 2013-06-04 15:55:00 162.56 cm [facility] Weight 2013-06-04 15:55:00 [facility] [place] BMI Calculated 2013-06-04 15:55:00 Rachelle al [place] Height 2012-11-20 12:52:00 162.56 cm [facility] [place] Weight 2012-11-20 12:52:00 [facility] Weight 2012-11-14 20:41:00 [facility] [place] Height 2012-11-14 20:41:00 162.56 cm [facility] Procedures Procedure Date / Time Performed Performing Clinician [facility] e Computed tomography of brain without radiopaque contrast 2019-10 00:00:00 [facility] Total abdominal hysterectomy<sup>1</sup> 2000-04-18 00:00:00 [facility] Plan of Care Planned Activity Planned Date Details Comments Source Future Scheduled Test 2019-12-18 00:00:00 INFLUENZA VACCINE (#1) [code = INFLUENZA VACCINE (#1)] [facility] Future Scheduled Test 2013-08-08 17:03:14 Plan of Care [code = 1877 6-5] [facility] Future Scheduled Test 2013-08-07 16:02:42 Plan of Care [code = 1877 6-5] [facility] Future Scheduled Test 2013-07-11 15:32:56 Plan of Care [code = 1877 6-5] [facility] Future Scheduled Test 2013-07-09 13:34:23 Plan of Care [code = 1877 6-5] [facility] Future Scheduled Test 2013-06-12 16:48:01 Plan of Care [code = 1877 6-5] [facility] Future Scheduled Test 2013-05-24 23:16:54 Plan of Care [code = 1877 6-5] [facility] Future Scheduled Test 2013-05-05 18:00:34 Plan of Care [code = 1877 6-5] [facility] Future Scheduled Test 2013-04-26 22:47:50 Plan of Care [code = 1877 6-5] [facility] Future Scheduled Test 2013-04-14 21:31:10 Plan of Care [code = 1877 6-5] [facility] Future Scheduled Test 2013-01-16 14:49:35 Plan of Care [code = 1877 6-5] [facility] Future Scheduled Test 2012-11-13 18:32:09 Plan of Care [code = 1877 6-5] [facility] Scheduled Test 2012-10-17 10:46:27 Plan of Care [code = 1877 6-5] [facility] Scheduled Test 2012-10-14 04:48:51 Plan of Care [code = 1877 6-5] [facility] Scheduled Test 2005 00:00:00 Lipid panel (proce dure) [code = 50010691] [facility] Future Scheduled Test 1981 00:00:00 Screening for ajay gnant neoplasm of cervix (procedure) [code = 077777908] [facility] Future Scheduled Test 1960 00:00:00 Screening for ajay gnant neoplasm of breast (procedure) [code = 617551784] [facility] Future Scheduled Test 1960 00:00:00 Screening for ajay gnant neoplasm of colon (procedure) [code = 112521751] [facility] Inst[facility] Sprains - Ankle [facility] Encounters Start Date/Time End Date/Time Encounter Type Admission Type Attendi [facility] Care Department Encounter ID Source 2019-10-28 18:00:00 2019-10-28 22:13:00 Departed Emergency Room SOFIA ALFORD [facility] [id number] [facility] 2019-05-28 13:51:18 2019-05-28 14:11:18 Office Visit Idalia Dowell [facility] [id number] 2019-05-11 07:19:51 2019-05-11 07:45:43 Office Visit Michelle Rosa [facility] [id number] 2019-02-19 11:03:13 2019-02-19 11:23:13 Office Visit Michelle Rosa [facility] [id number] 2019-02-07 08:37:03 2019-02-07 08:57:03 Office Visit Michelle Rosa [facility] [id number] 2018-08-27 03:18:00 2018-08-27 05:48:00 Departed Emergency Room 1 ZENAIDA WALKER [facility] [id number] [facility] 2013-08-08 12:03:14 2013-08-08 12:03:14 Outpatient MHIE MHIE [id number] 2013-08-07 11:02:43 2013-08-07 11:02:42 Outpatient MHIE MHIE [id number] 2013-07-11 10:32:57 2013-07-11 10:32:56 Outpatient MHIE MHIE [id number] 2013-07-09 08:34:23 2013-07-09 08:34:23 Outpatient MHIE MHIE [id number] 2013-06-12 10:48:01 2013-06-12 10:48:01 Outpatient MHIE MHIE [id number] 2013-06-04 09:36:00 2013-06-08 11:18:00 Outpatient Prem Desai MHIE MHIE [id number] 2013-05-24 17:16:54 2013-05-24 17:16:54 Outpatient MHIE MHIE [id number] 2013-05-05 12:00:35 2013-05-05 12:00:34 Outpatient MHIE MHIE [id number] 2013-04-26 16:47:50 2013-04-26 16:47:50 Outpatient MHIE MHIE [id number] 2013-04-14 15:31:10 2013-04-14 15:31:10 Outpatient MHIE MHIE [id number] 2013-01-16 09:49:35 2013-01-16 09:49:35 Outpatient MHIE MHIE [id number] 2012-11-13 13:32:10 2012-11-13 13:32:09 Outpatient MHIE MHIE [id number] 2012-10-17 05:46:48 2012-10-17 05:46:27 Outpatient MHIE MHIE [id number] 2012-10-13 23:49:11 2012-10-13 23:48:51 Outpatient [facility] [id number] Results Test Description Test Time Test Comments Results Result Comments Source CT BRAIN WO 2019-10-28 18:57:00 [facility] [address] [address] Patient Name: FARHANA BABCOCK MR #: [id number] : 1960 Age/Sex: 59/F Req #: [id number] Adm Physician: Ordered by: SOFIA ALFORD MD Report #: [id number] Location: ER Room/Bed: Procedure: [id number] CT/CT BRAIN WO Exam Date: 10/28/19 Exam Time: 1820 REPORT STATUS: Signed Examination: CT head without contrast Clinical Indication: Fall with loss of consciousness. Technique: Transaxial noncontrast images from the skull base through the vertex were obtained. Sagittal and coronal reformatted images were done. Dose modulation, iterative recons truction, and/or weight based adjustment of the mA/kV was utilized to reduce the radiation dose to as low as reasonably achievable. Comparison: Head CT dated August 27, 2018. Findings: Scalp: No abnormalities. Bones: Intact. No fractures. No blastic or lytic lesions. Brain sulci: Appropriate for patient's age. Ventricles: Normal in size and configuration. No hydrocephalus. Extra-axial space: No abnormalities. Parenchyma: No abnormal densities. No masses, hemorrhage, or acute or chronic cortical based vascular insults. Suprasellar region: No abnormalities. Craniocervical junction: The foramen magnum is patent. No Chiari one malformation. Impression: No new or acute intracranial abnormality when compared to prior head CT dated August 27, 2018. Signed by: Dr. Winston Allison M.D. on 10/28/2019 7:00 PM Dictated By: WINSTON VALDERRAMA MD 99 Transcribed By: ESMER on 10/28/191899 COPY TO: SOFIA ALFORD MD ANKLE 3+ VIEWS LEFT 2019-10-28 18:31:[address] [address] Patient Name: FARHANA BABCOCK MR #: [id number] : 1960 Age/Sex: 59/F Req #: [id number] Adm Physician: Ordered by: SOFIA ALFORD MD Report #: [id number] Location: ER Room/Bed: Procedure: [id number] DX/ANKLE 3+ VIEWS LEFT Exam Date: 10/28/19 Exam Time: 1820 REPORT STATUS: Signed Exam: Left ankle 3 views and leg 2 views History: Pain Comparison: None. Findings: Age- indeterminate punctate avulsion of the distal fibula. Joint spaces preserved. Calcaneal enthesophyte at the Achilles insertion. Impression: Age-indeterminate punctate avulsion of the distal fibula Signed by: Dr. Juan Hermosillo M.D. on 10/28/2019 6:34 PM Dictated By: JUAN HERMOSILLO MD 33 Transcribed By: ESMER on 10/28/191833 COPY TO: SOFIA ALFORD MD LOWER LEG LEFT 2019-10-28 18:31:00 [address] [address] Patient Name: FARHANA BABCOCK MR #: [id number] : 1960 Age/Sex: 59/F Req #: [id number] [facility] Physician: Ordered by: SOFIA ALFORD MD Report #: [id number] Location: ER Room/Bed: Procedure: [id number] DX/LOWER LEG LEFT Exam Date: 10/28/19 Exam Time: 1819 REPORT STATUS: Signed Exam: Left ankle 3 views and leg 2 views History: Pain Comparison: None. Findings: Age- indeterminate punctate avulsion of the distal fibula. Joint spaces preserved. Calcaneal enthesophyte at the Achilles insertion. Impression: Age-indeterminate punctate avulsion of the distal fibula Signed by: Dr. Juan Hermosillo M.D. on 10/28/2019 6:34 PM Dictated By: JUAN HERMOSILLO MD 33 Transcribed By: ESMER on 10/28/191833 COPY TO: SOFIA ALFORD MD POCT-CREATININE 2018-11-21 08:02:00 Test Item POC-CREATININE (BEAKER) (test code = 1859) 0.8 mg/dL 0.6-1.3 [address]ED [address] [address] POC-EGFR (BEAKER) (test code = 1860) 74 mL/min/1.73M2 CT, CHEST, WITH IV CONTRAST- PE TEST [id number] 13:54:00FINAL REPORT EXAM: CT Chest WITH contrast 11/15/2018 1:25 PMINDICATION: sob, syncope COMPARISON: None TECHNIQUE:Chest was scanned utilizing a multidetector helical scanner from the lung apex through the level of the adrenal glands without administration of IV contrast. Coronal and sagittal r eformations were obtained. Routine protocol was performed. IV CONTRAST: 100 mL of Omnipaque 300 COMPLICATIONS: None RADIATION DOSE: Dose modulation, it erative reconstruction, and/or weight based adjustment of the mA/kV was utilized to reduce the radiation dose to as low as reasonably achievable. FINDINGS: BALDEV ES/ TUBES: None. LUNGS AND AIRWAYS: Centrilobular emphysematous change. Atelec tasis at the lung bases. No concerning nodules or masses. No pulmonary and was n ot. PLEURA: The pleural spaces are clear. HEART AND MEDIASTINUM: The thyroid gla nd is normal. No mediastinal, hilar or axillary lymphadenopathy. The heart is normal in size. There is no pericardial effusion. UPPER ABDOMEN: Unremarkab le. BONES: The visualized bony thorax is within normal limits. SOFT TISSUES: Unr emarkable. IMPRESSION: No pulmonary embolism. Emphysematous change. Signed: Juan Scott Verified Date/Time: 11/15/2018 13:54:33 Reading Location: [facility] Reading Room [address] [place] [address] Creatine Kinase [id number] 04:48:00* Test Item Value Reference Range Interpretation Comments Creatine Kinase MB (test code = 34764-2) 0.60 0-5.0 [facility] [id number] 04:48:00* Test Item Value Reference Range Interpretation Comments Troponin I (test code = RVY1314) < 0.001 0-0.300 [facility] [id number] 04:41:00* Test Item Value Reference Range Interpretation Comments Sodium Level (test code = 2951-2) 140 136-145 [facility]assium [id number] 04:41:00* Test Item Value Reference Range Interpretation Comments Potassium Level (test code = 2823-3) 4.3 3.5-5.1 [facility]Chloride [id number] 04:41:00* Test Item Value Reference Range Interpretation Comments Chloride Level (test code = 2075-0) 105 98-107 [facility]wood[facility] Dioxide [id number] 04:41:00* Test Item Value Reference Range Interpretation Comments Carbon Dioxide Level (test code = 2028-9) 26 22-29 [facility]woodAnion [id number] 04:41:00* Test Item Value Reference Range Interpretation Comments Anion Gap (test code = 87284-1) 13.3 8-16 [facility] Urea [id number] 04:41:00* Test Item Value Reference Range Interpretation Comments Blood Urea Nitrogen (test code = 3094-0) 17 7-26 [facility]wood[facility]inine2019-05-12 04:41:00* Test Item Value Reference Range Interpretation Comments Creatinine (test code = 2160-0) 0.75 0.57-1.11 [facility]UN/Creatinine [id number] 04:41:00* Test Item Value Reference Range Interpretation Comments BUN/Creatinine Ratio (test code = 3097-3) 23 6-25 [facility]wood[facility] Glomerular Filtration Rate 2018-08-27 04:41:00* Test Item Value Reference Range Interpretation Comments Estimat Glomerular Filtration Rate (test code = 848652962) > 60 >60 Ranges were taken from the National Kidney Disease Education Program and the [facility] Foundation literature.Reference ranges:60 or greater: Ljjilg80-36 ( for 3 consecutive months): Chronic kidney disease 15 or less: Kidney failureHCA [facility] Healthcare [facility]woodGlucose [id number] 04:41:00* Test Item Value Reference Range Interpretation Comments Glucose Level (test code = VVZ2193) 95 74-118 [facility]woodCalcium [id number] 04:41:00* Test Item Value Reference Range Interpretation Comments Calcium Level (test code = 77163-1) 9.9 8.4-10.2 [facility]woodTotal [id number] 04:41:00* Test Item Value Reference Range Interpretation Comments Total Bilirubin (test code = 1975-2) 0.2 0.2-1.2 [facility]woodAspartate Amino Transf (AST/SGOT) 2018-08-27 04:41:00* Test Item Value Reference Range Interpretation Comments Aspartate Amino Transf (AST/SGOT) (test code = Aspartate Amino Transf (AST/SGOT)) 17 5-34 [facility]wood[facility]anine Aminotransferase (ALT/SGPT) 2018-08-27 04:41:00* Test Item Value Reference Range Interpretation Comments Alanine Aminotransferase (ALT/SGPT) (test code = 1742-6) 22 0-55 [facility]woodTotal [id number] 04:41:00* Test Item Value Reference Range Interpretation Comments Total Protein (test code = 2885-2) 6.9 6.5-8.1 [facility]woodAlbumin2019-05-12 04:41:00* Test Item Value Reference Range Interpretation Comments Albumin (test code = 1751-7) 4.0 3.5-5.0 [facility]wood[facility]obulin2019-05-12 04:41:00* Test Item Value Reference Range Interpretation Comments Globulin (test code = 48404-2) 2.9 2.3-3.5 [facility]wood[facility]in/Globulin [id number] 04:41:00 * Test Item Value Reference Range Interpretation Comments Albumin/Globulin Ratio (test code = 1759-0) 1.4 0.8-2.0 [facility]woodAlkaline Ieyngnmlpze4526-48-20 04:41:00* Test Item Value Reference Range Interpretation Comments Alkaline Phosphatase (test code = 6768-6) 65 40-150 [facility]woodCreatine [id number] 04:41:00* Test Item Value Reference Range Interpretation Comments Creatine Kinase (test code = 2157-6) 42 29-168 [facility]woodUrine [id number] 04:30:00* Test Item Value Reference Range Interpretation Comments Urine WBC (test code = 5821-4) 0-5 0-5 [facility]wood[facility] [id number] 04:30:00* Test Item Value Reference Range Interpretation Comments Urine RBC (test code = 38622-8) 6-10 0-5 H [facility]woodUrine [id number] 04:30:00* Test Item Value Reference Range Interpretation Comments Urine Bacteria (test code = 89236-6) RARE NONE [facility]wood[facility] Epithelial [id number] 04:30:00 * Test Item Value Reference Range Interpretation Comments Urine Epithelial Cells (test code = 74069-6) FEW NONE [facility]wood[facility] Hyaline [id number] 04:30:00* Test Item Value Reference Range Interpretation Comments Urine Hyaline Casts (test code = 90279-0) 0-1 0-1 [facility]woodU[facility] [id number] 04:25:00* Test Item Value Reference Range Interpretation Comments Urine Color (test code = 5778-6) YELLOW YELLOW [facility]woodU[facility] [id number] 04:25:00* Test Item Value Reference Range Interpretation Comments Urine Clarity (test code = 27382-8) CLEAR CLEAR [facility]woodUrine Specific [id number] 04:25:00 * Test Item Value Reference Range Interpretation Comments Urine Specific [place] (test code = 5811-5) 1.010 1.010-1.02 5 [facility]woodUrine [id number] 04:25:00* Test Item Value Reference Range Interpretation Comments Urine pH (test code = 47347-3) 7 5-7 [facility]wood[facility] Leukocyte Knhzrrpt1006-09-54 04:25:00* Test Item Value Reference Range Interpretation Comments Urine Leukocyte Esterase (test code = 5799-2) NEGATIVE NEGATIVE [facility]wood[facility] Vthgsyo9781-02-70 04:25:00* Test Item Value Reference Range Interpretation Comments Urine Nitrite (test code = 88980-4) NEGATIVE NEGATIVE [facility]woodU[facility] Vclujoo7687-10-47 04:25:00* Test Item Value Reference Range Interpretation Comments Urine Protein (test code = 5804-0) NEGATIVE NEGATIVE [facility]wood[facility] Glucose (UA)2018-08-27 04:25:00* Test Item Value Reference Range Interpretation Comments Urine Glucose (UA) (test code = 2349-9) NEGATIVE NEGATIVE [facility]wood[facility] Pxwsgnt3166-41-77 04:25:00* Test Item Value Reference Range Interpretation Comments Urine Ketones (test code = 53443-6) NEGATIVE NEGATIVE [facility]wood[facility] Opiates Jwqpkd7070-12-23 04:25:00* Test Item Value Reference Range Interpretation Comments Urine Opiates Screen (test code = 70096-4) NEGATIVE NEGATIVE ALL TESTS PERFORMED MANUALLY ON [place] TOX/SEE TESTHCA [facility] KingwoodUrine Barbiturates Oatiqf0792-24-52 04:25:00* Test Item Value Reference Range Interpretation Comments Urine Barbiturates Screen (test code = 726735073) NEGATIVE NEGA TIVE [facility]wood[facility] Phencyclidine Ugoppf0740-96-89 04:25:00* Test Item Value Reference Range Interpretation Comments Urine Phencyclidine Screen (test code = 04741-7) NEGATIVE NEGAT WILL [facility]woodU[facility] Amphetamines Icoiup1744-41-18 04:25:00* Test Item Value Reference Range Interpretation Comments Urine Amphetamines Screen (test code = 69198-8) NEGATIVE NEGATI VE [facility]woodU[facility] Methamphetamines Ueioqz4859-50-32 04:25:00* Test Item Value Reference Range Interpretation Comments Urine Methamphetamines Screen (test code = Urine Metha mphetamines Screen) NEGATIVE NEGATIVE [facility]wood[facility] Benzodiazepines Mjxarj7400-67-94 04:25:00* Test Item Value Reference Range Interpretation Comments Urine Benzodiazepines Screen (test code = 58978-8) NEGATIVE NEG ATIVE [facility]woodU[facility] Cocaine Ngtvjb9541-01-19 04:25:00* Test Item Value Reference Range Interpretation Comments Urine Cocaine Screen (test code = 3398-5) NEGATIVE NEGATIVE [facility]woodU[facility] Cannabinoids Iojmsm4252-44-74 04:25:00* Test Item Value Reference Range Interpretation Comments Urine Cannabinoids Screen (test code = 54146-5) NEGATIVE NEGATI VE THESE RESULTS ARE FOR MEDICAL TREATMENT ONLYTHIS REPORT CONTAINS UNCONFIR MED SCREENING RESULTS*POSITIVE RESULTS WILL BE CONFIRMED BY REFERENCE LAB UPON R EQUEST CUT-OFFDRUG CLASS CONCENTRATION ng/mLAmphetamines 1000Methamphetamines 1000Cocaine 300Opiate 300Phencyc lidine 25Cannabinoid 50Barbiturates 300Benzodiazepine 300Methadone 300[facility] Methadone Zbjzao3098-12-07 04:25:00* Test Item Value Reference Range Interpretation Comments Urine Methadone Screen (test code = 02565-9) NEGATIVE NEGATIVE THESE RESULTS ARE FOR MEDICAL TREATMENT ONLYTHIS REPORT CONTAINS UNCONFIR MED SCREENING RESULTS*POSITIVE RESULTS WILL BE CONFIRMED BY REFERENCE LAB UPON R EQUEST CUT-OFFDRUG CLASS CONCENTRATION ng/mLAmphetamines 1000Methamphetamines 1000Cocaine Metabolite 300Opiate 300Phencyc lidine 25Cannabinoid 50Barbiturates 300Benzodiazepine 300Methadone 300[facility]wood[facility] Cpcejnxzhwnw8159-52-14 04:25:00* Test Item Value Reference Range Interpretation Comments Urine Urobilinogen (test code = 36265-3) 0.2 0.2-1 [facility]wood[facility] Pzfkbmtva0200-15-53 04:25:00* Test Item Value Reference Range Interpretation Comments Urine Bilirubin (test code = 1978-6) NEGATIVE NEGATIVE [facility]wood[facility] Sikbo5780-62-73 04:25:00* Test Item Value Reference Range Interpretation Comments Urine Blood (test code = 29168-0) 1+ NEGATIVE H [facility]woodWhite Blood Anong4672-26-97 04:24:00* Test Item Value Reference Range Interpretation Comments White Blood Count (test code = 6690-2) 7.07 4.8-10.8 [facility]woodRed Blood Poing4106-06-06 04:24:00* Test Item Value Reference Range Interpretation Comments Red Blood Count (test code = 789-8) 4.50 3.6-5.1 [facility]woodHemoglobin2019-05-12 04:24:00* Test Item Value Reference Range Interpretation Comments Hemoglobin (test code = 01960-4) 14.3 12.0-16.0 [facility]woodHematocrit2019-05-12 04:24:00* Test Item Value Reference Range Interpretation Comments Hematocrit (test code = 4544-3) 42.4 34.2-44.1 [facility]woodMean Corpuscular Uvbasa9668-54-84 04:24:00* Test Item Value Reference Range Interpretation Comments Mean Corpuscular Volume (test code = 787-2) 94.2 81-99 [facility] Corpuscular Jfjxzsxxpi9783-71-92 04:24:00* Test Item Value Reference Range Interpretation Comments Mean Corpuscular Hemoglobin (test code = 785-6) 31.8 28-32 [facility]woodMean Corpuscular Hemoglobin Concent 2018-08-27 04:24:00* Test Item Value Reference Range Interpretation Comments Mean Corpuscular Hemoglobin Concent (test code = 786-4) 33.7 31-35 [facility]woodRed Cell Distribution Ofxbg7675-27-79 04:24:00* Test Item Value Reference Range Interpretation Comments Red Cell Distribution Width (test code = 60862-1) 11.8 11.7 -14.4 [facility] KingwoodPlatelet Mchvf1479-03-31 04:24:00* Test Item Value Reference Range Interpretation Comments Platelet Count (test code = 777-3) 198 140-360 [facility]woodNeutrophils (%) (Auto)2018-08-27 04:24:00 * Test Item Value Reference Range Interpretation Comments Neutrophils (%) (Auto) (test code = 41630-2) 51.9 38.7-80.0 [facility] KingwoodLymphocytes (%) (Auto)2018-08-27 04:24:00 * Test Item Value Reference Range Interpretation Comments Lymphocytes (%) (Auto) (test code = 736-9) 35.9 18.0-39.1 [facility]woodMonocytes (%) (Auto)2018-08-27 04:24:00* Test Item Value Reference Range Interpretation Comments Monocytes (%) (Auto) (test code = 5905-5) 9.5 4.4-11.3 [facility]woodEosinophils (%) (Auto)2018-08-27 04:24:00 * Test Item Value Reference Range Interpretation Comments Eosinophils (%) (Auto) (test code = 713-8) 1.7 0.0-6.0 [facility]woodBasophils (%) (Auto)2018-08-27 04:24:00* Test Item Value Reference Range Interpretation Comments Basophils (%) (Auto) (test code = 706-2) 0.6 0.0-1.0 [facility]woodIM GRANULOCYTES %2018-08-27 04:24:00* Test Item Value Reference Range Interpretation Comments IM GRANULOCYTES % (test code = IM GRANULOCYTES %) 0.4 0.0- 1.0 [facility] KingwoodNeutrophils # (Auto)2018-08-27 04:24:00* Test Item Value Reference Range Interpretation Comments Neutrophils # (Auto) (test code = 751-8) 3.7 2.1-6.9 [facility]woodLymphocytes # (Auto)2018-08-27 04:24:00* Test Item Value Reference Range Interpretation Comments Lymphocytes # (Auto) (test code = 18328-1) 2.5 1.0-3.2 [facility]woodMonocytes # (Auto)2018-08-27 04:24:00* Test Item Value Reference Range Interpretation Comments Monocytes # (Auto) (test code = 742-7) 0.7 0.2-0.8 [facility]woodEosinophils # (Auto)2018-08-27 04:24:00* Test Item Value Reference Range Interpretation Comments Eosinophils # (Auto) (test code = 711-2) 0.1 0.0-0.4 [facility]woodBasophils # (Auto)2018-08-27 04:24:00* Test Item Value Reference Range Interpretation Comments Basophils # (Auto) (test code = 704-7) 0.0 0.0-0.1 [facility] KingwoodAbsolute Immature Granulocyte (auto 2018-08-27 04:24:00* Test Item Value Reference Range Interpretation Comments Absolute Immature Granulocyte (auto (wesley t code = Absolute Immature Granulocyte (auto) 0.03 0-0.1 [facility]CT [facility] CQ1450-77-04 04:18:00 [facility] [address] [address] Patient Name: FARHANA BABCOCK MR #: [id number] : 1960 Age/Sex: 58/F Req #: [id number] Adm Physician: Ordered by: ZENAIDA WALKER MD Report #: [id number] Location: ER Room/Bed: Procedure: [id number] CT/CT BRAIN WO Exam Date: 08/27/18 Exam Time: 417 REPORT STATUS: Signed CT BRAIN WO HISTORY: Dizziness, headache COMPARISON: Report from head CT dated 2 (images not available at time of dictation) TECHNIQUE: Noncontrast a xial scans were obtained from skull base to the vertex. Coronal and sagittal reconstructions obtained from the axial data. One or more of the following do se reduction techniques were used: Automated exposure control, adjustment of t he mA and/or kV according to patient size, and/or utilization of iterative rec onstruction technique. DISCUSSION: Scalp/Skull: Unremarkable. Brain sulci: Appropriate for patient's age. Ventricles: Normal in size and configura tion. No hydrocephalus. Extra-axial spaces: No masses or fluid collections. Parenchyma: Mild carotid siphon calcifications are present. No mas s, hemorrhage, or large vascular territory acute infarct. Dural sinuses: N o abnormal densities. Sellar/Suprasellar region: Intact. Skull base: Intact. Incidental findings: There is mild mucosal thickening in the bilateral spheno id sinuses. IMPRESSION: No acute intracranial abnormalities. Signed by: Dr. Melchor Nunn M.D. on 08/27/2018 4:23 AM Dictated By: MELCHOR NUNN MD 2 Transcribed By: ESMER on 08/27/18422 COPY TO: ZENAIDA WALKER MD LMTZ4161-03-86 20:00:00* Test Item Value Reference Range Interpretation Comments PARTIAL THROMBOPLASTIN TIME (BEAKER) (test code = 760) 29.9 seconds 22.5-36.0 PROTHROMBIN TIME/VMH0980-68-23 19:58:00* Test Item Value Reference Range Interpretation Comments PROTIME (BEAKER) (test code = 759) 12.4 seconds 11.7-14.7 INR (BEAKER) (test code = 370) 0.9 <=5.9 RECOMMENDED COUMADIN/WARFARIN INR THERAPY RANGESSTANDARD DOSE: 2.0 - 3.0 Inclu eladio: PROPHYLAXIS for venous thrombosis, systemic embolization; TREATMENT for polina ous thrombosis and/or pulmonary embolus.HIGH RISK: Target INR is 2.5-3.5 for pat ients with mechanical heart valves.TROPONIN [id number] 19:55:00* Test Item Value Reference Range Interpretation Comments TROPONIN I (BEAKER) (test code = 397) < ng/mL 0.00-0.03 Troponin I (TnI) levels [...] (BNP)2018-08-10 19:55:00* Test Item Value Reference Range Interpretation Comments B-TYPE NATRIURETIC PEPTIDE (BEAKER) (test code = 700) 14 pg/mL 0-100 COMPREHENSIVE METABOLIC YLCNP5038-02-99 19:51:00* Test Item Value Reference Range Interpretation Comments TOTAL PROTEIN (BEAKER) (test code = 770) 7.7 gm/dL 6.0-8.3 ALBUMIN (BEAKER) (test code = 1145) 4.9 g/dL 3.5-5.0 ALKALINE PHOSPHATASE (BEAKER) (test code = 346) 66 U/L 40-150 BILIRUBIN TOTAL (BEAKER) (test code = 377) 0.3 mg/dL 0.2-1.2 SODIUM (BEAKER) (test code = 381) 138 meq/L 136-145 POTASSIUM (BEAKER) (test code = 379) 4.4 meq/L 3.5-5.1 CHLORIDE (BEAKER) (test code = 382) 100 meq/L 98-107 CO2 (BEAKER) (test code = 355) 28 meq/L 22-29 BLOOD UREA NITROGEN (BEAKER) (test code = 354) 12 mg/dL 7-21 CREATININE (BEAKER) (test code = 358) 0.79 mg/dL 0.57-1.25 GLUCOSE RANDOM (BEAKER) (test code = 652) 101 mg/dL 70-105 CALCIUM (BEAKER) (test code = 697) 10.0 mg/dL 8.4-10.2 AST (SGOT) (BEAKER) (test code = 353) 20 U/L 5-34 ALT (SGPT) (BEAKER) (test code = 347) 19 U/L 6-55 EGFR (BEAKER) (test code = 1092) mL/min/1.73 sq m INSUFFICIENT CLINICAL DATA TO CALCULATE ESTIMATED GFR. DNJVCBQQP9775-86-72 19:49:00* Test Item Value Reference Range Interpretation Comments MAGNESIUM (BEAKER) (test code = 627) 2.2 mg/dL 1.6-2.6 URINALYSIS W/ FEVTADXUGHS9991-95-68 19:39:00* Test Item Value Reference Range Interpretation Comments COLOR (BEAKER) (test code = 470) Light Yellow CLARITY (BEAKER) (test code = 469) Clear SPECIFIC GRAVITY UA (BEAKER) (test code = 468) 1.006 1.001-1 .035 PH UA (BEAKER) (test code = 467) 5.5 5.0-8.0 PROTEIN UA (BEAKER) (test code = 464) Negative Negative GLUCOSE UA (BEAKER) (test code = 365) Negative Negative KETONES UA (BEAKER) (test code = 371) 10 mg/dL Negative A BILIRUBIN UA (BEAKER) (test code = 462) Negative Negative BLOOD UA (BEAKER) (test code = 461) Small Negative A NITRITE UA (BEAKER) (test code = 465) Negative Negative LEUKOCYTE ESTERASE UA (BEAKER) (test code = 466) Small Negat will A UROBILINOGEN UA (BEAKER) (test code = 463) 0.2 mg/dL 0.2-1.0 RBC UA (BEAKER) (test code = 519) 2 /HPF WBC UA (BEAKER) (test code = 520) 3 /HPF MUCUS (BEAKER) (test code = 1574) Rare SQUAMOUS EPITHELIAL (BEAKER) (test code = 516) 1 /HPF SOURCE(BEAKER) (test code = 2795) Urine, Clean Catch CBC W/PLT COUNT & AUTO LYFQFIWCVFXJ4555-23-75 19:33:00* Test Item Value Reference Range Interpretation Comments WHITE BLOOD CELL COUNT (BEAKER) (test code = 775) 9.0 K/ L 3.5- 10.5 RED BLOOD CELL COUNT (BEAKER) (test code = 761) 4.73 M/ L 3.93-5 .22 HEMOGLOBIN (BEAKER) (test code = 410) 15.0 GM/DL 11.2-15.7 HEMATOCRIT (BEAKER) (test code = 411) 45.7 % 34.1-44.9 H MEAN CORPUSCULAR VOLUME (BEAKER) (test code = 753) 96.6 fL 79. 4-94.8 H MEAN CORPUSCULAR HEMOGLOBIN (BEAKER) (test code = 751) 31.7 pg 25.6-32.2 MEAN CORPUSCULAR HEMOGLOBIN CONC (BEAKER) (test code = 752) 32.8 GM/DL 32.2-35.5 RED CELL DISTRIBUTION WIDTH (BEAKER) (test code = 412) 11.7 % 11.7-14.4 PLATELET COUNT (BEAKER) (test code = 756) 203 K/CU MM 150-450 MEAN PLATELET VOLUME (BEAKER) (test code = 754) 10.3 fL 9.4-12 .3 NUCLEATED RED BLOOD CELLS (BEAKER) (test code = 413) 0 /100 WBC 0 -0 NEUTROPHILS RELATIVE PERCENT (BEAKER) (test code = 429) 63 % LYMPHOCYTES RELATIVE PERCENT (BEAKER) (test code = 430) 28 % MONOCYTES RELATIVE PERCENT (BEAKER) (test code = 431) 7 % EOSINOPHILS RELATIVE PERCENT (BEAKER) (test code = 432) 1 % BASOPHILS RELATIVE PERCENT (BEAKER) (test code = 437) 1 % NEUTROPHILS ABSOLUTE COUNT (BEAKER) (test code = 670) 5.68 K/ L 1.56-6.13 LYMPHOCYTES ABSOLUTE COUNT (BEAKER) (test code = 414) 2.53 K/ L 1.18-3.74 MONOCYTES ABSOLUTE COUNT (BEAKER) (test code = 415) 0.58 K/ L 0. 24-0.36 H EOSINOPHILS ABSOLUTE COUNT (BEAKER) (test code = 416) 0.07 K/ L 0.04-0.36 BASOPHILS ABSOLUTE COUNT (BEAKER) (test code = 417) 0.06 K/ L 0. 01-0.08 IMMATURE GRANULOCYTES-RELATIVE PERCENT (BEAKER) (test code = 2801) 0 % 0-1 CT, BRAIN, WITHOUT [id number] 18:19:00Reason for exam:->LOSS OF CONSCIOUSNESSIs the patient [...] for further characterization. Signed: JR Guzman Robert MDReport Verified Date/Time: 08/10/2018 18:19:43 Reading Location: [facility] Reading Room CCVJQ3159-02-31 16:22:80276Lkrwpyxq HermannCHEM VHLPU5588-57-26 16:22:0025 [facility]annCHE[facility] HXNRJ2606-62-25 16:22:77343Tujnrdbu HermannCHEM PANEL 2013-06-04 16:22:004.0[facility] HermannCHEM TCWIW7613-51-70 16:22:008.8[facility] HermannCHEM AQUII1450-26-88 16:22:0020[facility] HermannCHEM LYQBM2997-24-35 16:22:006.9[facility] HermannCHEM GEAWI6385-22-90 16:22:000.2[facility] HermannCHEM NGNIY6442-89-87 16:22:0014[facility] HermannCHEM DRLJL5473-76-11 16:22:0074 [facility]annCHEM BJOSU3602-43-18 16:22:0086[facility] HermannCHEM PANEL 2013-06-04 16:22:004.2[facility] HermannCHEM HTIVO8672-34-26 16:22:0039[facility] HermannCHEM VQURK7237-22-42 16:22:41621Ycyrpisf HermannCHEM GMOOF0502-55-24 16:22:000.5[facility] HermannCHEM YXXOM3195-85-90 16:22:001.6[facility] HermannCHEM MNHUV1738-32-78 16:22:002.7[facility] HermannCHEM GILSC8678-73-39 16:22:0011.0 [facility] HermannCHEM RAWBR9969-09-12 16:22:0028[facility] HermannCHEM PANEL 2013-06-04 16:22:000.1[facility] AfvnkdfYSCXKUGPJM1408-61-02 16:22:008.8[facility] CbcirppODSHDKMAZT3351-91-51 16:22:0034.0[facility] KiubtpsZSFOGSSVHQ8718-26-27 16:22:48636Ybbcknxh IzrbscqXRJEYWNRDU8552-86-30 16:22:0012.9[facility] ENAOUDCVIN5872-72-92 16:22:0095.9[facility] EaldqgkFHIPWZEDYI3826-10-35 16:22:00* Test Item Value Reference Range Interpretation Comments MCH (test code = MCH) 32.6 pg 27.0-31.0 [facility] RsaedxyKBGWFQSTII9870-37-81 16:22:004.25[facility] HermannHEMATOLOGY 2013-06-04 16:22:0040.7[facility] FjscfmpKQBPBMJOEN9586-53-44 16:22:0013.8[facility] TwawtrnSKXUWDSNXJ1021-50-76 16:22:005.9[facility] JmcluxoSUXDCIOILF8736-41-00 16:22:001.5[facility] UchsgbqFIYFSRCBXW8112-48-48 16:22:003.7[facility] [place] MSJRBGGPTL3338-00-95 16:22:000.5[facility] DgjylurPNMQMVEVAG4733-64-86 16:22:00 63.2[facility] QagidhbYNUPGETIFE2402-30-61 16:22:0026.1[facility] HermannHEMATOLOGY 2013-06-04 16:22:009.2[facility] TksekchSRDYBBVSXV9292-03-54 16:22:000.8[facility] ZaxdqnfXQVANHTKIP3672-84-17 16:22:000.7[facility] WshdsglOKYZSBQQZW9242-52-56 16:22:0027.6[facility] DycqulpHPKKILZYZI5726-30-48 16:22:0043[facility] [place]
--- OUTSIDE RECORDS SUMMARY | 2020-03-15 09:27 | XMS REPORT | Clinical Summary ---
Author Author [facility] Address Unknown Phone Unavailable Care Team Providers Care Telephone Clerk Name Role Phone PCP Unavailable Allergies Comments Active Allergy Reactions Severity Noted Date Palpitation Pregabalin Other (See 11/15/2018 Comments) Medications Not on file Active Problems Not on file Social History Date Tobacco Use Types Packs/Day Years Used Never Assessed Sex Assigned at Date Recorded Not on file Last Filed Vital Signs Not on file Plan of Treatment Health Maintenance Due Date Last Done Comments BREAST CANCER SCREENING 1960 COLON CANCER SCREENING 1960 COLONOSCOPY CERVICAL CANCER SCREENING 1981 PAP ONLY (Age 21-65) LIPID PANEL 2005 INFLUENZA VACCINE (#1) 2019 Results Not on fileafter 03/15/2019 Insurance Type Payer Benefit Subscriber ID Effective Phone Address Plan / Dates Group HMO/POS [facility] [id number] [id number] CARE POS SELECT resent CHOICE 2014
--- OUTSIDE RECORDS SUMMARY | 2020-03-15 09:27 | XMS REPORT | Continuity of Care Document ---
Author Author [facility] Organization [facility] Address Unknown Phone Unavailable Care Team Providers Care Disaster Director Name Role Phone [email or web address] Information Exchange Unavailable Un available Problems Problem Status Onset Date Classification Date Reported Comments Source Final: Other Convulsions 06/15/2013 06/27/2013 [facility] EMU PHASE 1 Active 04/10/2013 [facility] FOLLOW UP 4 WEEKS Active 12/08/2012 [facility] CHEST PAIN Active 11/14/2012 [facility] NEW PT Active 10/30/2012 [facility] 345.11/ EPLIPSY Active 10/26/2012 [facility] Seizure Resolved Problem 12/28/2012 [facility] Final: Tobacco Use Disorder 06/27/2013 [facility] Heart murmur (finding) Resolved Problem 06/27/2013 [facility] Osteoporosis (disorder) Resolv ed Problem 03/2014 [facility] Seizure (finding) Resolved Problem 06/27/2013 [facility] 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 08/08/2013 [facility] Acute Upper Respiratory Infection Active 06/12/2013 [facility] Abnormal Glucose Active 08/08/2013 [facility] 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 [facility] Anxiety Disorder NOS Active 08/08/2013 [facility] EPILEPSY NOS-INTRACTABLE Active [facility] Medications Medication Details Route Status Patient Instructions Ordering Provider Order Date Source Escitalopram Oxalate 5 MG Oral Tablet ; Start Date: 08/08/2013; End Date: (Active) Active 08/08/2013 [facility] BusPIRone HCl 15 MG Oral Tablet ; Start Date: 06/11/2013 (Active) Active 06/11/2013 [facility] citalopram 10 mg oral tablet 1 0 mg = 1 tab, PO, Daily, # 30 tab, 3 Refill(s) Active 06/08/2013 [facility] Trileptal 600 mg, 2 tab, Route : PO, Drug form: TAB, BID, Dosing Weight 59.545, kg, Start date: 06/04/13 17:00:00, Duration: 30 day, Stop date: 07/04/13 9:00:00Do not crush or chew. (Same as: Trileptal) No Longer Active 06/04/2013 [facility] Keppra 1,500 mg, 3 tab, Route: PO, Drug form: TAB, BID, Dosing Weight 59.545, kg, Start date: 06/04/13 17:00:00, Duration: 30 day, Stop date: 07/04/13 9:00:00(Same as:Keppra) No Longer Active 06/04/2013 [facility] nt Ibuprofen OTC 1 tab, PO, PRN, 0 Refill(s) Active 06/04/2013 [facility] aspirin 325 mg tablet 325 mg = 1 tab, PO, Daily Active 06/04/2013 [facility] Docusate 100 mg, 1 cap, Route: PO, Drug form: CAP, BID, Dosing Weight 59.545, kg, PRN Constipation, Start date: 06/04/13 13:44:00, Duration: 30 day, Stop date: 07/04/13 13:43:00(Same as: Colace) (Do Not Crush) No Longer Active 06/04/2013 [facility] oxcarbazepine 300 MG Oral Tablet [Trileptal] 600 mg = 2 tab, PO, BID, 0 Refill(s) No Longer Active 06/04/2013 [facility] nter Keppra 1,500 mg, PO, BID, 0 Re fill(s) No Longer Active 06/04/2013 [facility] Levetiracetam 500 MG Oral Tablet [Keppra] 500 mg, 1 tab, Route: PO, Drug form: TAB, TID, Dosing Weight 59.545, kg, Start date: 06/04/13 13:00:00, Duration: 30 day, Stop date: 07/04/13 9:00:00(Same as:Keppra) Inactive 06/04/2013 [facility] Cefdinir 300 MG Oral Capsule ; Start Date: 04/14/2013; End Date: (Active) Active 04/14/2013 [facility] OXcarbazepine 300 MG Oral Tablet ; Start Date: 11/30/2012; End Date: (Active) Active 11/30/2012 [facility] LevETIRAcetam 500 MG Oral Tablet ; Start Date: ; End Date: (Active) Inactive [facility] LevETIRAcetam 500 MG Oral Tablet (Active) Active [facility] Allergies, Adverse Reactions, Alerts Substance Category Reaction Severity Reaction type Status Date Reported Comments Source Lyrica Assertion Drug allergy Active [facility] Lyrica CAPS drug allergy drug allergy Active [facility] Aspirin TABS drug allergy drug allergy Active [facility] Immunizations No Data Provided for This Section Results Order Name Results Value Reference Range Date Interpretation Comments Source CHEM PANEL eGFR 112 06/04/2013 <sup>1</sup>Result Comment: The eGFR is calculated using the CKD-EPI formula. In most young, healthy individuals the eGFR will be >90 mL/min/1.73m2. The eGFR declines with age. An eGFR of 60-89 may be normal in some populations, particularly the elderly, for whom the CKD-EPI formula has not been extensively validated. Use of the eGFR is not recommended in the following populations:& lt;br/>
Individuals with unstable creatinine concentrations, including patients [...] should be multiplied by the estimated BMI. [facility] CHEM PANEL CO2 25 24 - 32 06/04/2013 [facility] CHEM PANEL Chloride Lvl 104 95 - 109 06/04/2013 [facility] CHEM PANEL Potassium Lvl 4.0 3.5 - 5.1 06/04/2013 [facility] CHEM PANEL Calcium Lvl 8.8 8.5 - 10.5 06/04/2013 [facility] CHEM PANEL ASPARTATE TRANSAMINASE 20 0 - 37 06/04/2013 [facility] CHEM PANEL Total Protein 6.9 6.4 - 8.4 06/04/2013 [facility] CHEM PANEL Bili Total 0.2 0.2 - 1.3 06/04/2013 [facility] CHEM PANEL BUN 14 7 - 22 06/04/2013 [facility] CHEM PANEL Alk Phos 74 39 - 136 06/04/2013 [facility] CHEM PANEL Glucose Lvl 86 70 - 99 06/04/2013 <sup>2</sup>Interpretive Data: Adult ref erence range values reflect the clinical guidelines
of the [place] [employer]. [facility] CHEM PANEL Albumin Lvl 4.2 3.5 - 5.0 06/04/2013 [facility] CHEM PANEL ALANINE AMINOTRANSFERASE 39 0 - 65 06/04/2013 [facility] CHEM PANEL Sodium Lvl 136 135 - 145 06/04/2013 [facility] CHEM PANEL Creatinine Lvl 0.5 0.5 - 1.4 06/04/2013 [facility] CHEM PANEL A/G Ratio 1.6 0.7 - 1.6 06/04/2013 [facility] CHEM PANEL Globulin 2.7 2.0 - 4.0 06/04/2013 [facility] CHEM PANEL AGAP 11.0 10.0 - 20.0 06/04/2013 [facility] CHEM PANEL B/C Ratio 28 6 - 25 06/04/2013 [facility] CHEM PANEL Bili Direct 0.1 0.0 - 0.3 06/04/2013 [facility] HEMATOLOGY MPV 8.8 7.4 - 10.4 06/04/2013 [facility] HEMATOLOGY MCHC 34.0 32.0 - 36.0 06/04/2013 [facility] HEMATOLOGY Platelet 176 133 - 450 06/04/2013 [facility] HEMATOLOGY RDW 12.9 11.5 - 14.5 06/04/2013 [facility] HEMATOLOGY MCV 95.9 81.0 - 99.0 06/04/2013 [facility] HEMATOLOGY MCH 32.6 27.0 - 31.0 06/04/2013 [facility] HEMATOLOGY RBC X 10x6 4.25 4.20 - 5.40 06/04/2013 [facility] HEMATOLOGY Hct 40.7 36.0 - 48.0 06/04/2013 [facility] HEMATOLOGY Hgb 13.8 12.0 - 16.0 06/04/2013 [facility] HEMATOLOGY WBC X 10x3 5.9 3.7 - 10.4 06/04/2013 [facility] HEMATOLOGY Lymphocytes # 1.5 1.0 - 5.5 06/04/2013 [facility] HEMATOLOGY Segs-Bands # 3.7 1.5 - 8.1 06/04/2013 [facility] HEMATOLOGY Monocytes # 0.5 0.0 - 0.8 06/04/2013 [facility] HEMATOLOGY Segs 63.2 45.0 - 75.0 06/04/2013 [facility] HEMATOLOGY Lymphocytes 26.1 20.0 - 40.0 06/04/2013 [facility] HEMATOLOGY Monocytes 9.2 2.0 - 12.0 06/04/2013 [facility] HEMATOLOGY Eosinophils 0.8 0.0 - 4.0 06/04/2013 [facility] HEMATOLOGY Basophils 0.7 0.0 - 1.0 06/04/2013 [facility] TOXICOLOGY Trileptal Lvl 27.6 8.0 - 35.0 06/04/2013 <sup>4</sup>Result Comment:
(Synon ym: Oxcarbazepine Metabolite)

Test Performed at:
[facility] [place], [address] [facility]
[place] [address] Moses Celeste MD [facility] TOXICOLOGY [place] Lvl 43 06/04/2013 <sup>3</sup>Result Comment: Therapeutic Levels:
Drug Dosage Trough (mcg/mL) Peak (mcg/mL)
500 mg BID 3.1 - 10.0 10.0 - 25.0
1000 mg BID 4.9 - 37.1 30.0 - 40.0
1500 mg BID 7.0 - 34.0 36.1 - 70.0

Toxic level not established
Test Performed at:
[facility]
[place], [id number] [place] [address]
[place] [address] Mary Dean MD, FCAP [facility] Pathology Reports No Data Provided for This Section Diagnostic Reports No Data Provided for This Section Consultation Notes No Data Provided for This Section Discharge Summaries No Data Provided for This Section History and Physicals No Data Provided for This Section Vital Signs Vital Sign Value Date Comments Source Temperature Oral (F) 98.4 F 06/08/2013 [facility] Systolic (mm Hg) 106 06/08/2013 [facility] Heart Rate 54 06/08/2013 [facility] Respitory Rate 14 06/08/2013 [facility] Diastolic (mm Hg) 68 06/08/2013 [facility] Temperature Oral (F) 98.2 F 06/08/2013 [facility] Heart Rate 78 06/08/2013 [facility] Respitory Rate 17 06/08/2013 [facility] Systolic (mm Hg) 106 06/08/2013 [facility] Diastolic (mm Hg) 67 06/08/2013 [facility] Heart Rate 73 06/07/2013 [facility] Temperature Oral (F) 98.2 F 06/07/2013 [facility] Systolic (mm Hg) 106 06/07/2013 [facility] Diastolic (mm Hg) 73 06/07/2013 [facility] Respitory Rate 18 06/07/2013 [facility] Height 162.56 cm 06/04/2013 [facility] Weight 59.545 06/04/2013 [facility] BMI Calculated 22.53 06/04/2013 [facility] Height 162.56 cm 11/20/2012 [facility] Weight 61.364 11/20/2012 [facility] Weight 65 0 11/14/2012 [facility] Height 162.56 cm 11/14/2012 [facility] Encounters Location Location Details Encounter Type Encounter Number Reason For Visit Attending Provider ADM Date DC Date Status Source AUDIT [id number] 10/13/2012 10/14/2012 [facility] AUDIT [id number] 10/17/2012 10/17/2012 [facility] AUDIT [id number] 11/13/2012 11/13/2012 [facility] Outpatient [id number] NEW PT ALEXANDRO ASTERYALKA 11/14/2012 Active [facility] Outpatient [id number] CHEST PAIN ALEXANDRO LOYALKA 11/20/2012 11/20/2012 Active [facility] Outpatient [id number] 345.11/ EPAMINATA ROTHMAN 11/27/2012 Active [facility] EES, Provi kim: KEE ROTHMAN, Status: Pen, Time: 8:30 AM [id number] 01/16/2013 11/13/2012 [facility] AUDIT [id number] 01/16/2013 01/16/2013 [facility] AUDIT [id number] 04/14/2013 04/14/2013 [facility] AUDIT [id number] 04/26/2013 04/26/2013 [facility] AUDIT [id number] 05/05/2013 05/05/2013 [facility] Maribell CARD kim: KEE ROTHMAN, Status: Pen, Time: 8:30 AM [id number] 05/22/2013 05/05/2013 [facility] AUDIT [id number] 05/24/2013 05/24/2013 [facility] Inpatient [id number] KATE MONTERO 014 06/08/2013 Discharged [facility] Inpatient [id number] Kee Rothman 06/04/2013 06/08/2013 [facility] AUDIT [id number] 06/12/2013 06/12/2013 [facility] Maribell BLANCO kim: JOE RUTH, Status: Pen, Time: 8:00 AM [id number] 07/09/2013 06/12/2013 [facility] AUDIT [id number] 07/09/2013 07/09/2013 [facility] AUDIT [id number] 07/11/2013 07/11/2013 [facility] Maribell CARD kim: KEE ROTHMAN, Status: Pen, Time: 1:30 PM [id number] 07/25/2013 07/11/2013 [facility] AUDIT [id number] 08/07/2013 08/07/2013 [facility] AUDIT [id number] 08/08/2013 08/08/2013 [facility] Maribell GUTIERREZ kim: NEFTALI GOLDMAN, Status: Pen, Time: 4:20 PM [id number] 09/26/1908/08/2013 [facility] Outpatient [id number] FOLLOW UP 4 WEEKS ALEXANDRO Mason [facility] Procedures Procedure Code Date Perfomer Comments Source Total abdominal hysterectomy<sup>1</sup> [id number] 04/18/2000 1approximate age [facility] Assessment and Plan No Data Provided for This Section Plan of Care Plan of Care Date Source [L] [facility] 10/13/2012 RoutineFollow-up vi sit in 2 weeks 07/09/2013 Routine 08/08/2013 [facility] [L] [facility] 10/13/2012 RoutineFollow-up vi sit in 2 weeks 07/09/2013 Routine 08/07/2013 [facility] [L] [facility] 10/13/2012 RoutineFollow-up vi sit in 2 weeks 07/09/2013 Routine 07/11/2013 [facility] [L] [facility] 10/13/2012 RoutinePsychiatry R eferral 07/09/2013 RoutineFollow-up visit in 2 weeks 07/09/2013 Routine 07/09/2013 [facility] [L] [facility] 10/13/2012 Routine 0 06/12/2013 [facility] [L] [facility] 10/13/2012 Routine 0 05/24/2013 [facility] [L] [facility] 10/13/2012 Routine[QLH] HEMOGL OBIN A1c 05/01/2013 Routine[QLH] CBC (INCLUDES DIFF/PLT) 05/01/2013 Routine 05/05/2013 [facility] [L] [facility] 10/13/2012 Routine[QLH] CBC (I NCLUDES DIFF/PLT) 04/26/2013 Routine[QLH] HEMOGLOBIN A1c 04/26/2013 Routine 04/26/2013 [facility] [L] [facility] 10/13/2012 Routine 1 06/15/2012 [facility] [L] [facility] 10/13/2012 Routine 1 [facility] [L] [facility] 10/13/2012 Routine 0 11/13/2012 [facility] [L] [facility] 10/13/2012 Routine 0 10/17/2012 [facility] [L] [facility] 10/13/2012 Routine 0 10/14/2012 [facility] Social History Social History Date Source Current Smoker (305.1); (Active) Marital History - Currently (Active) Never Drank Alcohol (Active) No History of Drug Use (Denied) 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 Highest [...] 365 Days? Yes. Cessation Counseling Provided? No. 06/04/2013 [facility] Family History Value Date S ource Family history of Diabetes Mellitus (V18 .0); (Active) Family history of Epilepsy And Recurrent Seizures (V17.2); (Active) Family history of Heart Disease (V17.49); (Active) Family history of Hypertension (V17.49); (Active) Family history of Stroke Syndrome (V17.1); (Active) Maternal history of Hypertension (V17.49); (Active) Maternal history of Breast Cancer (V16.3); (Active) Maternal history of Rheumatoid Arthritis (Active) 08/08/2013 [facility] Maternal history of Rheumatoid Arthritis (Active) Maternal history of Breast Cancer (V16.3); (Active) Maternal history of Hypertension (V17.49); (Active) Family history of Stroke Syndrome (V17.1); (Active) Family history of Hypertension (V17.49); (Active) Family history of Heart Disease (V17.49); (Active) Family history of Epilepsy And Recurrent Seizures (V17.2); (Active) Family history of Diabetes Mellitus (V18.0); (Active) 08/07/2013 [facility] Family history of Diabetes Mellitus (V18 .0); (Active) Family history of Epilepsy And Recurrent Seizures (V17.2); (Active) Family history of Heart Disease (V17.49); (Active) Family history of Hypertension (V17.49); (Active) Family history of Stroke Syndrome (V17.1); (Active) Maternal history of Hypertension (V17.49); (Active) Maternal history of Breast Cancer (V16.3); (Active) Maternal history of Rheumatoid Arthritis (Active) 07/11/2013 [facility] Family history of Diabetes Mellitus (V18 .0); (Active) Family history of Epilepsy And Recurrent Seizures (V17.2); (Active) Family history of Heart Disease (V17.49); (Active) Family history of Hypertension (V17.49); (Active) Family history of Stroke Syndrome (V17.1); (Active) Maternal history of Hypertension (V17.49); (Active) Maternal history of Breast Cancer (V16.3); (Active) Maternal history of Rheumatoid Arthritis (Active) 07/09/2013 [facility] Family history of Diabetes Mellitus (V18 .0); (Active) Family history of Epilepsy And Recurrent Seizures (V17.2); (Active) Family history of Heart Disease (V17.49); (Active) Family history of Hypertension (V17.49); (Active) Family history of Stroke Syndrome (V17.1); (Active) Maternal history of Hypertension (V17.49); (Active) Maternal history of Breast Cancer (V16.3); (Active) Maternal history of Rheumatoid Arthritis (Active) 06/12/2013 [facility] Family history of Diabetes Mellitus (V18 .0); (Active) Family history of Epilepsy And Recurrent Seizures (V17.2); (Active) Family history of Heart Disease (V17.49); (Active) Family history of Hypertension (V17.49); (Active) Family history of Stroke Syndrome (V17.1); (Active) Maternal history of Hypertension (V17.49); (Active) Maternal history of Breast Cancer (V16.3); (Active) Maternal history of Rheumatoid Arthritis (Active) 05/24/2013 [facility] Family history of Diabetes Mellitus (V18 .0); (Active) Family history of Epilepsy And Recurrent Seizures (V17.2); (Active) Family history of Heart Disease (V17.49); (Active) Family history of Hypertension (V17.49); (Active) Family history of Stroke Syndrome (V17.1); (Active) 05/05/2013 [facility] Family history of Diabetes Mellitus (V18 .0); (Active) Family history of Epilepsy And Recurrent Seizures (V17.2); (Active) Family history of Heart Disease (V17.49); (Active) Family history of Hypertension (V17.49); (Active) Family history of Stroke Syndrome (V17.1); (Active) 04/26/2013 [facility] Family history of Diabetes Mellitus (V18 .0); (Active) Family history of Epilepsy And Recurrent Seizures (V17.2); (Active) Family history of Heart Disease (V17.49); (Active) Family history of Hypertension (V17.49); (Active) Family history of Stroke Syndrome (V17.1); (Active) 04/14/2013 [facility] Family history of Diabetes Mellitus (V18 .0); (Active) Family history of Epilepsy And Recurrent Seizures (V17.2); (Active) Family history of Heart Disease (V17.49); (Active) Family history of Hypertension (V17.49); (Active) Family history of Stroke Syndrome (V17.1); (Active) 01/16/2013 [facility] Family history of Diabetes Mellitus (V18 .0); (Active) Family history of Epilepsy And Recurrent Seizures (V17.2); (Active) Family history of Heart Disease (V17.49); (Active) Family history of Hypertension (V17.49); (Active) Family history of Stroke Syndrome (V17.1); (Active) 11/13/2012 [facility] Family history of Diabetes Mellitus (V18 .0); (Active) Family history of Epilepsy And Recurrent Seizures (V17.2); (Active) Family history of Heart Disease (V17.49); (Active) Family history of Hypertension (V17.49); (Active) Family history of Stroke Syndrome (V17.1); (Active) 10/17/2012 [facility] Family history of Diabetes Mellitus (V18 .0); (Active) Family history of Epilepsy And Recurrent Seizures (V17.2); (Active) Family history of Heart Disease (V17.49); (Active) Family history of Hypertension (V17.49); (Active) Family history of Stroke Syndrome (V17.1); (Active) 10/14/2012 [facility] Advance Directives Order Name Results Value Date Source Advance Directives Advance Dir ectives No Advance Directives available. 08/08/2013 [facility] Advance Directives Advance Dir ectives No Advance Directives available. 08/07/2013 [facility] Advance Directives Advance Dir ectives No Advance Directives available. 07/11/2013 [facility] Advance Directives Advance Dir ectives No Advance Directives available. 07/09/2013 [facility] Advance Directives Advance Dir ectives No Advance Directives available. 06/12/2013 [facility] Advance Directives Advance Dir ectives No Advance Directives available. 05/24/2013 [facility] Advance Directives Advance Dir ectives No Advance Directives available. 05/05/2013 [facility] Advance Directives Advance Dir ectives No Advance Directives available. 04/26/2013 [facility] Advance Directives Advance Dir ectives No Advance Directives available. 04/14/2013 [facility] Advance Directives Advance Dir ectives No Advance Directives available. 01/16/2013 [facility] Advance Directives Advance Dir ectives No Advance Directives available. 11/13/2012 [facility] Advance Directives Advance Dir ectives No Advance Directives available. 10/17/2012 [facility] Advance Directives Advance Dir ectives No Advance Directives available. 10/14/2012 [facility] Functional Status No Data Provided for This Section
[2020-03-15 09:31] LABS: BASOPHILS # (AUTO) 0.1 (0.0-0.1); BASOPHILS % 0.8 % (0.0-1.0); EOSINOPHILS # (AUTO) 0.1 (0.0-0.4); EOSINOPHILS % 1.8 % (0.0-6.0); HEMATOCRIT 47.5 % (34.2-44.1); HEMOGLOBIN 15.2 g/dL (12.0-16.0); LYMPHOCYTES # (AUTO) 2.4 (1.0-3.2); LYMPHOCYTES % 32.7 % (18.0-39.1); MEAN CORPUSCULAR HEMOGLOBIN 30.6 pg (28-32); MEAN CORPUSCULAR VOLUME 95.8 fL (81-99); MONOCYTES # (AUTO) 0.6 (0.2-0.8); MONOCYTES % 8.7 % (4.4-11.3); NEUTROPHILS # (AUTO) 4.1 (2.1-6.9); NEUTROPHILS % 55.6 % (38.7-80.0); PLATELET COUNT 185 x10e3/uL (140-360); RED BLOOD COUNT 4.96 x10e6/uL (3.6-5.1)
[2020-03-15 09:40] LABS: INR 0.87; PARTIAL THROMBOPLASTIN TIME 28.3 seconds (23.8-35.5); PROTHROMBIN TIME 12.3 seconds (11.9-14.5)
[2020-03-15 09:50] LABS: ALANINE AMINOTRANSFERASE 25 IU/L (0-55); ALBUMIN 4.1 g/dL (3.5-5.0); ALBUMIN/GLOBULIN RATIO 1.4 (0.8-2.0); ALKALINE PHOSPHATASE 56 IU/L (40-150); ANION GAP 16.4 mmol/L (8-16); BLOOD UREA NITROGEN 17 mg/dL (7-26); BUN/CREATININE RATIO 21 (6-25); CARBON DIOXIDE 25 mmol/L (22-29); CHLORIDE 104 mmol/L (98-107); CREATINE KINASE 34 IU/L (29-168); CREATININE, SERUM 0.82 mg/dL (0.57-1.11); EST GLOMERULAR FILTRATION RATE > 60 ML/MIN (60-); GLUCOSE 93 mg/dL (74-118); POTASSIUM 4.4 mmol/L (3.5-5.1); SODIUM 141 mmol/L (136-145)
[2020-03-15 09:52] LABS: MAGNESIUM 4.4 MG/DL (1.3-2.1)
--- NOTE | 2020-03-15 10:15 | Emergency Department Note ---
History of Present Illnes History of Present Illness Chief Complaint: Seizure History of Present Illness This is a 59 year old female pt came in via [facility] s/p reported seizure. Pt says she woke up with a headache, got out of bed and was lightheaded, felt like she was going to pass out, got back in bed and woke husb and who says she then was minimally responsive and then when he sat her up she went unconscious for about 1-2 mins, no seizure activity and no bowel/bladder incontinence. He said it seemed like she wasn't breathing for a few seconds while unresponsive. He says her normal past seizures is with tonic-clonic movements. Pt states that it has been more than 3 years since her last seizure, pt does not take any seizure medications, pt was reportedly post-ictal upon EMS arrival, pt is now AAOX4 with stable VS during triage. 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 Any updates have been documented here. Past Medical History Recent Fever: No Clinical Suspicion of Infectio: No New/Unexplained Change in Ment: No Past Medical History: Anxiety Other Medical History: ANXIETY VERTIGO Past Surgical History: None Social History Smoking Cessation: Current every day smoker Counseling Performed: Yes Alcohol Use: None Any Illegal Drug Use: No TB Exposure/Symptoms: No Physically hurt or threatened: No Family History Family history of heart diseas: No Other Last Tetanus: NO Any Pre-Existing Lines (PICC,: No Review of Systems Review of Systems Constitutional: Reports no symptoms EENTM: Reports no symptoms Cardiovascular: Reports as per HPI, Reports syncope Respiratory: Reports no symptoms Gastrointestinal: Reports no symptoms Genitourinary: Reports no symptoms Musculoskeletal: Reports no symptoms Integumentary: Reports no symptoms Neurological: Reports as per HPI, Reports headache Psychological: Reports no symptoms Endocrine: Reports no symptoms Hematological/Lymphatic: Reports no symptoms Physical Exam Related Data Allergies: Coded Allergies: pregabalin (Verified Allergy, Unknown, 08/27/18) Triage Vital Signs Vital Signs Date Time Temp Pulse Resp B/P (MAP) Pulse Ox O2 Delivery O2 Flow Rate FiO2 03/15/20 09:19 97.7 66 18 117/75 97 Nasal Cannula 2.0 Vital signs reviewed: Yes Physical Exam CONSTITUTIONAL Constitutional: Present well-developed, Present well-nourished HENT HENT: Present normocephalic, Present atraumatic, Present mucosae dry, Present nose normal HENT L/R: Present left ext ear normal, Present right ext ear normal EYES Eyes: Reports PERRL, Reports conjunctivae normal NECK Neck: Present ROM normal, Present supple; Absent carotid bruit PULMONARY Pulmonary: Present effort normal, Present breath sounds normal CARDIOVASCULAR Cardiovascular: Present regular rhythm, Present heart sounds normal, Present capillary refill normal, Present normal rate GASTROINTESTINAL Abdominal: Present soft, Present nontender, Present bowel sounds normal GENITOURINARY Genitourinary: Present exam deferred SKIN Skin: Present warm, Present dry MUSCULOSKELETAL Musculoskeletal: Present ROM normal NEUROLOGICAL Neurological: Present alert, Present oriented x 3, Present no gross motor or sensory deficits; Absent cranial nerve deficit, Absent sensory deficit, Absent weakness PSYCHOLOGICAL Psychological: Present mood/affect normal, Present judgement normal Results Laboratory Result Diagram: 03/15/2091903/15/2020 Laboratory Laboratory Tests Test 03/15/20 09:55 03/15/20 09:20 White Blood Count 7.28 x10e3/uL (4.8-10.8) Red Blood Count 4.96 x10e6/uL (3.6-5.1) Hemoglobin 15.2 g/dL (12.0-16.0) Hematocrit 47.5 % (34.2-44.1) Mean Corpuscular Volume 95.8 fL (81-99) Mean Corpuscular Hemoglobin 30.6 pg (28-32) Mean Corpuscular Hemoglobin Concent 32.0 g/dL (31-35) Red Cell Distribution Width 12.0 % (11.7-14.4) Platelet Count 185 x10e3/uL (140-360) Neutrophils (%) (Auto) 55.6 % (38.7-80.0) Lymphocytes (%) (Auto) 32.7 % (18.0-39.1) Monocytes (%) (Auto) 8.7 % (4.4-11.3) Eosinophils (%) (Auto) 1.8 % (0.0-6.0) Basophils (%) (Auto) 0.8 % (0.0-1.0) Neutrophils # (Auto) 4.1 (2.1-6.9) Lymphocytes # (Auto) 2.4 (1.0-3.2) Monocytes # (Auto) 0.6 (0.2-0.8) Eosinophils # (Auto) 0.1 (0.0-0.4) Basophils # (Auto) 0.1 (0.0-0.1) Absolute Immature Granulocyte (auto 0.03 x10e3/uL (0-0.1) Prothrombin Time 12.3 seconds (11.9-14.5) Prothromb Time International Ratio 0.87 Activated Partial Thromboplast Time 28.3 seconds (23.8-35.5) Sodium Level 141 mmol/L (136-145) Potassium Level 4.4 mmol/L (3.5-5.1) Chloride Level 104 mmol/L (98-107) Carbon Dioxide Level 25 mmol/L (22-29) Anion Gap 16.4 mmol/L (8-16) Blood Urea Nitrogen 17 mg/dL (7-26) Creatinine 0.82 mg/dL (0.57-1.11) Estimat Glomerular Filtration Rate > 60 ML/MIN (60-) BUN/Creatinine Ratio 21 (6-25) Glucose Level 93 mg/dL (74-118) Calcium Level 9.0 mg/dL (8.4-10.2) Magnesium Level 4.4 MG/DL (1.3-2.1) Total Bilirubin 0.3 mg/dL (0.2-1.2) Aspartate Amino Transf (AST/SGOT) 18 IU/L (5-34) Alanine Aminotransferase (ALT/SGPT) 25 IU/L (0-55) Alkaline Phosphatase 56 IU/L (40-150) Creatine Kinase 34 IU/L (29-168) Creatine Kinase MB 0.80 ng/mL (0-5.0) Troponin I < 0.001 ng/mL (0-0.300) Total Protein 7.1 g/dL (6.5-8.1) Albumin 4.1 g/dL (3.5-5.0) Globulin 3.0 g/dL (2.3-3.5) Albumin/Globulin Ratio 1.4 (0.8-2.0) Lab results reviewed: Yes Imaging Imaging results reviewed: Yes Impressions Exam: Head CT without contrast History: Syncope Comparison studies: Head CT 10/28/2019 08/27/2018. Technique: Axial images were obtained from the skull base to the vertex. Coronal and sagittal images reconstructed from the axial data. Dose modulation, iterative reconstruction, and/or weight based adjustment of the mA/kV was utilized to reduce the radiation dose to as low as reasonably achievable. Radiation dose: Total DLP: 1843 mGy*cm. Estimated effective dose: DLP x 0.015 Intravenous contrast: None Findings: Scalp: No abnormalities. Bones: No fractures, blastic or lytic lesions. Brain sulci: Appropriate for age. Ventricles: Normal in size and configuration. No hydrocephalus. Extra-axial spaces: No masses, no fluid collection. Parenchyma: No abnormal densities. No masses, hemorrhage, acute or chronic vascular insults. Sellar/suprasellar region: No abnormalities. Craniocervical junction: Patent foramen magnum. No Chiari one malformation. Incidental findings: Atherosclerotic calcifications in the carotid siphons. Nonspecific secretions in the sphenoid sinuses are new from the prior CT. IMPRESSION: 1. No intracranial abnormalities. 2. Nonspecific sphenoid sinusitis. 3. No other changes from the prior head CT of 10/28/2019. Signed by: Dr. Catarino Singer M.D. on 03/15/2020 10:45 AM Procedures 12 Lead ECG Interpretation ECG Interpretation : ECG: ECG 1 Community Specialist: Interpreted by ED physician Date: Mar 15, 2020 Time: 09:20 Rhythm: sinus rhythm Rate: normal BPM: 62 QRS axis: left ST segments normal: Yes T wave inversion: V1, V2, V3, V4 T waves flattening: aVL Clinical Impression: abnormal ECG Additional Comments poor rwp Assessment & Plan Medical Decision Making MDM syncope vs seizure, sounds more like orthostatic syncope - cbc, chem, ecg, cardiacs, ct brain, ua/cx, cxr - r/o dysrhythmia, stemi/nstemi, cerebral bleed, dehydration, renal insuff, anemia Reassessment Reassessment admit for syncope - spoke with Dr Foreman (on-call) Assessment & Plan Final Impression: (1) Syncope Depart Disposition: ADMITTED Last Vital Signs Date Time Temp Pulse Resp B/P (MAP) Pulse Ox O2 Delivery O2 Flow Rate FiO2 03/15/20 09:19 97.7 66 18 117/75 97 Nasal Cannula 2.0 Home Meds Reported Medications Sertraline Hcl (ZOLOFT) 50 Mg Tablet, 50 MG PO DAILY, #30 TAB 11/16/14 Medications in the ED Sodium Chloride 1,000 ml @ 0 mls/hr Q0M STAT IV Last administered on 03/15/20at 10:06; Admin Dose 999 MLS/HR; Start 03/15/20 at 09:18; Stop 03/15/20 at 09:21; Status DC SOFIA ALFORD MD Mar 15, 2020 10:15
--- NOTE | 2020-03-15 10:49 | Diagnostic Imaging Report ---
Exam: Head CT without contrast History: Syncope Comparison studies: Head CT 10/28/2019 08/27/2018. Technique: Axial images were obtained from the skull base to the vertex. Coronal and sagittal images reconstructed from the axial data. Dose modulation, iterative reconstruction, and/or weight based adjustment of the mA/kV was utilized to reduce the radiation dose to as low as reasonably achievable. Radiation dose: Total DLP: 1843 mGy*cm. Estimated effective dose: DLP x 0.015 Intravenous contrast: None Findings: Scalp: No abnormalities. Bones: No fractures, blastic or lytic lesions. Brain sulci: Appropriate for age. Ventricles: Normal in size and configuration. No hydrocephalus. Extra-axial spaces: No masses, no fluid collection. Parenchyma: No abnormal densities. No masses, hemorrhage, acute or chronic vascular insults. Sellar/suprasellar region: No abnormalities. Craniocervical junction: Patent foramen magnum. No Chiari one malformation. Incidental findings: Atherosclerotic calcifications in the carotid siphons. Nonspecific secretions in the sphenoid sinuses are new from the prior CT. IMPRESSION: 1. No intracranial abnormalities. 2. Nonspecific sphenoid sinusitis. 3. No other changes from the prior head CT of 10/28/2019. Signed by: Dr. Catarino Singer M.D. on 03/15/2020 10:45 AM
--- NOTE | 2020-03-15 11:03 | Diagnostic Imaging Report ---
EXAMINATION: CHEST SINGLE (PORTABLE) INDICATION: ^sz vs syncope ^[id number] ^[id number] COMPARISON: None FINDINGS: TUBES and LINES: None. LUNGS: Normal lung volumes. Lungs are clear. No consolidations. There is bibasilar atelectasis. PLEURA: No pleural effusion or pneumothorax. HEART AND MEDIASTINUM: The cardiomediastinal silhouette is unremarkable. BONES AND SOFT TISSUES: No acute osseous lesion. Soft tissues are unremarkable. UPPER ABDOMEN: No free air under the diaphragm. IMPRESSION: 1. No acute thoracic radiographic abnormality. 2. Bibasilar atelectasis. Signed by: Lyndon Amaya MD on 03/15/2020 11:00 AM
[2020-03-15 11:24] LABS: CLARITY,URINE CLEAR (CLEAR); COLOR,URINE YELLOW (YELLOW); KETONES,URINE NEGATIVE (NEGATIVE); LEUKOCYTE ESTERASE ,URINE NEGATIVE (NEGATIVE); NITRITE,URINE NEGATIVE (NEGATIVE); PROTEIN,URINE DIPSTICK NEGATIVE (NEGATIVE)
[2020-03-15 11:25] LABS: BACTERIA,URINE RARE /HPF; BILIRUBIN,URINE NEGATIVE (NEGATIVE); EPITHELIAL CELLS,URINE FEW /LPF; URINE UROBILINOGEN 0.2 mg/dL (0.2 - 1)
[2020-03-15 11:26] LABS: AMPHETAMINES SCREEN,URINE NEGATIVE (NEGATIVE); BENZODIAZEPINES SCREEN,URINE NEGATIVE (NEGATIVE); PHENCYCLIDINE SCREEN,URINE NEGATIVE (NEGATIVE)
[2020-03-15] MEDS ORDERED: ONDANSETRON HCL INJ 2MG/ML 2ML 2 MG/ML VIAL IV PRN (11:30)
[2020-03-15] MEDS: SODIUM CHLORIDE 0.9% 1000ML 1,000 ML IV SCH ×2 (11:47→20:58)
--- OUTSIDE RECORDS SUMMARY | 2020-03-15 11:52 | XMS REPORT | Continuity of Care Document ---
Author Author [facility] Organization [facility] Address Unknown Phone Unavailable Care Team Providers Care Administrative Intern Name Role Phone Inform[employer] Information Exchange Unavailable Un available Problems Problem Status Onset Date Classification Date Reported Comments Source Final: Other Convulsions 06/15/2013 06/27/2013 [facility] EMU PHASE 1 Active 04/10/2013 [facility] FOLLOW UP 4 WEEKS Active 12/08/2012 [facility] CHEST PAIN Active 11/14/2012 [facility] NEW PT Active 10/30/2012 [facility] 345.11/ EPLIPSY Active 10/26/2012 [facility] Seizure Resolved Problem 12/28/2012 [facility] Final: Tobacco Use Disorder 06/27/2013 [facility] Heart murmur (finding) Resolved Problem 06/27/2013 [facility] Osteoporosis (disorder) Resolv ed Problem 03/2014 [facility] Seizure (finding) Resolved Problem 06/27/2013 [facility] 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 08/08/2013 [facility] Acute Upper Respiratory Infection Active 06/12/2013 [facility] Abnormal Glucose Active 08/08/2013 [facility] 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 [facility] Anxiety Disorder NOS Active 08/08/2013 [facility] EPILEPSY NOS-INTRACTABLE Active [facility] Medications Medication Details Route Status Patient Instructions Ordering Provider Order Date Source Escitalopram Oxalate 5 MG Oral Tablet ; Start Date: 08/08/2013; End Date: (Active) Active 08/08/2013 [facility] BusPIRone HCl 15 MG Oral Tablet ; Start Date: 06/11/2013 (Active) Active 06/11/2013 [facility] citalopram 10 mg oral tablet 1 0 mg = 1 tab, PO, Daily, # 30 tab, 3 Refill(s) Active 06/08/2013 [facility] Trileptal 600 mg, 2 tab, Route : PO, Drug form: TAB, BID, Dosing Weight 59.545, kg, Start date: 06/04/13 17:00:00, Duration: 30 day, Stop date: 07/04/13 9:00:00Do not crush or chew. (Same as: Trileptal) No Longer Active 06/04/2013 [facility] Keppra 1,500 mg, 3 tab, Route: PO, Drug form: TAB, BID, Dosing Weight 59.545, kg, Start date: 06/04/13 17:00:00, Duration: 30 day, Stop date: 07/04/13 9:00:00(Same as:Keppra) No Longer Active 06/04/2013 [facility] nt Ibuprofen OTC 1 tab, PO, PRN, 0 Refill(s) Active 06/04/2013 [facility] aspirin 325 mg tablet 325 mg = 1 tab, PO, Daily Active 06/04/2013 [facility] Docusate 100 mg, 1 cap, Route: PO, Drug form: CAP, BID, Dosing Weight 59.545, kg, PRN Constipation, Start date: 06/04/13 13:44:00, Duration: 30 day, Stop date: 07/04/13 13:43:00(Same as: Colace) (Do Not Crush) No Longer Active 06/04/2013 [facility] oxcarbazepine 300 MG Oral Tablet [Trileptal] 600 mg = 2 tab, PO, BID, 0 Refill(s) No Longer Active 06/04/2013 [facility] nter Keppra 1,500 mg, PO, BID, 0 Re fill(s) No Longer Active 06/04/2013 [facility] Levetiracetam 500 MG Oral Tablet [Keppra] 500 mg, 1 tab, Route: PO, Drug form: TAB, TID, Dosing Weight 59.545, kg, Start date: 06/04/13 13:00:00, Duration: 30 day, Stop date: 07/04/13 9:00:00(Same as:Keppra) Inactive 06/04/2013 [facility] Cefdinir 300 MG Oral Capsule ; Start Date: 04/14/2013; End Date: (Active) Active 04/14/2013 [facility] OXcarbazepine 300 MG Oral Tablet ; Start Date: 11/30/2012; End Date: (Active) Active 11/30/2012 [facility] LevETIRAcetam 500 MG Oral Tablet ; Start Date: ; End Date: (Active) Inactive [facility] LevETIRAcetam 500 MG Oral Tablet (Active) [facility] Allergies, Adverse Reactions, Alerts Substance Category Reaction Severity Reaction type Status Date Reported Comments Source Lyrica Assertion Drug allergy Active [facility] Lyrica CAPS drug allergy drug allergy Active [facility] Aspirin TABS drug allergy drug allergy Active [facility] Immunizations No Data Provided for This [...] should be multiplied by the estimated BMI. [facility] CHEM PANEL CO2 25 24 - 32 06/04/2013 [facility] CHEM PANEL Chloride Lvl 104 95 - 109 06/04/2013 [facility] CHEM PANEL Potassium Lvl 4.0 3.5 - 5.1 06/04/2013 [facility] CHEM PANEL Calcium Lvl 8.8 8.5 - 10.5 06/04/2013 [facility] CHEM PANEL ASPARTATE TRANSAMINASE 20 0 - 37 06/04/2013 [facility] CHEM PANEL Total Protein 6.9 6.4 - 8.4 06/04/2013 [facility] CHEM PANEL Bili Total 0.2 0.2 - 1.3 06/04/2013 [facility] CHEM PANEL BUN 14 7 - 22 06/04/2013 [facility] CHEM PANEL Alk Phos 74 39 - 136 06/04/2013 [facility] CHEM PANEL Glucose Lvl 86 70 - 99 06/04/2013 <sup>2</sup>Interpretive Data: Adult ref erence range values reflect the clinical guidelines
of the [place] [employer]. [facility] CHEM PANEL Albumin Lvl 4.2 3.5 - 5.0 06/04/2013 [facility] CHEM PANEL ALANINE AMINOTRANSFERASE 39 0 - 65 06/04/2013 [facility] CHEM PANEL Sodium Lvl 136 135 - 145 06/04/2013 [facility] CHEM PANEL Creatinine Lvl 0.5 0.5 - 1.4 06/04/2013 [facility] CHEM PANEL A/G Ratio 1.6 0.7 - 1.6 06/04/2013 [facility] CHEM PANEL Globulin 2.7 2.0 - 4.0 06/04/2013 [facility] CHEM PANEL AGAP 11.0 10.0 - 20.0 06/04/2013 [facility] CHEM PANEL B/C Ratio 28 6 - 25 06/04/2013 [facility] CHEM PANEL Bili Direct 0.1 0.0 - 0.3 06/04/2013 [facility] HEMATOLOGY MPV 8.8 7.4 - 10.4 06/04/2013 [facility] HEMATOLOGY MCHC 34.0 32.0 - 36.0 06/04/2013 [facility] HEMATOLOGY Platelet 176 133 - 450 06/04/2013 [facility] HEMATOLOGY RDW 12.9 11.5 - 14.5 06/04/2013 [facility] HEMATOLOGY MCV 95.9 81.0 - 99.0 06/04/2013 [facility] HEMATOLOGY MCH 32.6 27.0 - 31.0 06/04/2013 [facility] HEMATOLOGY RBC X 10x6 4.25 4.20 - 5.40 06/04/2013 [facility] HEMATOLOGY Hct 40.7 36.0 - 48.0 06/04/2013 [facility] HEMATOLOGY Hgb 13.8 12.0 - 16.0 06/04/2013 [facility] HEMATOLOGY WBC X 10x3 5.9 3.7 - 10.4 06/04/2013 [facility] HEMATOLOGY Lymphocytes # 1.5 1.0 - 5.5 06/04/2013 [facility] HEMATOLOGY Segs-Bands # 3.7 1.5 - 8.1 06/04/2013 [facility] HEMATOLOGY Monocytes # 0.5 0.0 - 0.8 06/04/2013 [facility] HEMATOLOGY Segs 63.2 45.0 - 75.0 06/04/2013 [facility] HEMATOLOGY Lymphocytes 26.1 20.0 - 40.0 06/04/2013 [facility] HEMATOLOGY Monocytes 9.2 2.0 - 12.0 06/04/2013 [facility] HEMATOLOGY Eosinophils 0.8 0.0 - 4.0 06/04/2013 [facility] HEMATOLOGY Basophils 0.7 0.0 - 1.0 06/04/2013 [facility] TOXICOLOGY Trileptal Lvl 27.6 8.0 - 35.0 06/04/2013 <sup>4</sup>Result Comment:
(Synon ym: Oxcarbazepine Metabolite)

Test Performed at:
[facility] [place], [address] [facility] [place] [phone] Moses Celeste MD [facility] TOXICOLOGY Keppa Lvl 43 06/04/2013 <sup>3</sup>Result Comment: Therapeutic Levels:
Drug Dosage Trough (mcg/mL) Peak (mcg/mL)
500 mg BID 3.1 - 10.0 10.0 - 25.0
1000 mg BID 4.9 - 37.1 30.0 - 40.0
1500 mg BID 7.0 - 34.0 36.1 - 70.0

Toxic level not established
Test Performed at:
[facility] [place], [id number] [place] [address]
[place] [phone] Mary Dean MD, FCAP [facility] Pathology Reports No Data Provided for This Section Diagnostic Reports No Data Provided for This Section Consultation Notes No Data Provided for This Section Discharge Summaries No Data Provided for This Section History and Physicals No Data Provided for This Section Vital Signs Vital Sign Value Date Comments Source Temperature Oral (F) 98.4 F 06/08/2013 [facility] Systolic (mm Hg) 106 06/08/2013 [facility] Heart Rate 54 06/08/2013 [facility] Respitory Rate 14 06/08/2013 [facility] Diastolic (mm Hg) 68 06/08/2013 [facility] Temperature Oral (F) 98.2 F 06/08/2013 [facility] Heart Rate 78 06/08/2013 [facility] Respitory Rate 17 06/08/2013 [facility] Systolic (mm Hg) 106 06/08/2013 [facility] Diastolic (mm Hg) 67 06/08/2013 [facility] Heart Rate 73 06/07/2013 [facility] Temperature Oral (F) 98.2 F 06/07/2013 [facility] Systolic (mm Hg) 106 06/07/2013 [facility] Diastolic (mm Hg) 73 06/07/2013 [facility] Respitory Rate 18 06/07/2013 [facility] Height 162.56 cm 06/04/2013 [facility] Weight 59.545 06/04/2013 [facility] BMI Calculated 22.53 06/04/2013 [facility] Height 162.56 cm 11/20/2012 [facility] Weight 61.364 11/20/2012 [facility] Weight 65 0 11/14/2012 [facility] Height 162.56 cm 11/14/2012 [facility] Encounters Location Location Details Encounter Type Encounter Number Reason For Visit Attending Provider ADM Date DC Date Status Source AUDIT [id number] 10/13/2012 10/14/2012 [facility] AUDIT [id number] 10/17/2012 10/17/2012 [facility] AUDIT [id number] 11/13/2012 11/13/2012 [facility] Outpatient [id number] NEW PT ALEXANDRO ASTERYALKA 11/14/2012 Active [facility] Outpatient [id number] CHEST PAIN ALEXANDRO LOYALKA 11/20/2012 11/20/2012 Active [facility] Outpatient [id number] 345.11/ EPAMINATA ROTHMAN 11/27/2012 Active [facility] EES, Provi kim: KEE ROTHMAN, Status: Pen, Time: 8:30 AM [id number] 01/16/2013 11/13/2012 [facility] AUDIT [id number] 01/16/2013 01/16/2013 [facility] AUDIT [id number] 04/14/2013 04/14/2013 [facility] AUDIT [id number] 04/26/2013 04/26/2013 [facility] AUDIT [id number] 05/05/2013 05/05/2013 [facility] Maribell CARD kim: KEE ROTHMAN, Status: Pen, Time: 8:30 AM [id number] 05/22/2013 05/05/2013 [facility] AUDIT [id number] 05/24/2013 05/24/2013 [facility] Inpatient [id number] KATE MONTERO 014 06/08/2013 Discharged [facility] [id number] _[id number] Kee Rothman 06/04/2013 06/08/2013 [facility] AUDIT [id number] 06/12/2013 06/12/2013 [facility] Maribell BLANCO kim: JOE RUTH, Status: Pen, Time: 8:00 AM [id number] 07/09/2013 06/12/2013 [facility] AUDIT [id number] 07/09/2013 07/09/2013 [facility] AUDIT [id number] 07/11/2013 07/11/2013 [facility] Maribell CARD kim: KEE ROTHMAN, Status: Pen, Time: 1:30 PM [id number] 07/25/2013 07/11/2013 [facility] AUDIT [id number] 08/07/2013 08/07/2013 [facility] AUDIT [id number] 08/08/2013 08/08/2013 [facility] Maribell GUTIERREZ kim: NEFTALI GOLDMAN, Status: Pen, Time: 4:20 PM [id number] 09/26/1908/08/2013 [facility] Outpatient [id number] FOLLOW UP 4 WEEKS ALEXANDRO Mason [facility] Procedures Procedure Code Date Perfomer Comments Source Total abdominal hysterectomy<sup>1</sup> [id number] 04/18/2000 1approximate age [facility] Assessment and Plan No Data Provided for This Section Plan of Care Plan of Care Date Source [L] [facility] 10/13/2012 RoutineFollow-up vi sit in 2 weeks 07/09/2013 Routine 08/08/2013 [facility] [L] [facility] 10/13/2012 RoutineFollow-up vi sit in 2 weeks 07/09/2013 Routine 08/07/2013 [facility] [L] [facility] 10/13/2012 RoutineFollow-up vi sit in 2 weeks 07/09/2013 Routine 07/11/2013 [facility] [L] [facility] 10/13/2012 RoutinePsychiatry R eferral 07/09/2013 RoutineFollow-up visit in 2 weeks 07/09/2013 Routine 07/09/2013 [facility] [L] [facility] 10/13/2012 Routine 0 06/12/2013 [facility] [L[facility] 10/13/2012 Routine 0 05/24/2013 [facility] [L] [facility] 10/13/2012 Routine[QLH] HEMOGL OBIN A1c 05/01/2013 Routine[QLH] CBC (INCLUDES DIFF/PLT) 05/01/2013 Routine 05/05/2013 [facility] [L] [facility] 10/13/2012 Routine[QLH] CBC (I NCLUDES DIFF/PLT) 04/26/2013 Routine[QLH] HEMOGLOBIN A1c 04/26/2013 Routine 04/26/2013 [facility] [L] [facility] 10/13/2012 Routine 1 06/15/2012 [facility] [L[facility] 10/13/2012 Routine 1 [facility] [L[facility] 10/13/2012 Routine 0 11/13/2012 [facility] 10/13/2012 Routine 0 10/17/2012 [facility] [L[facility] 10/13/2012 Routine 0 10/14/2012 [facility] Social History Social History Date Source Current Smoker (305.1); (Active) Marital History - Currently (Active) Never Drank Alcohol (Active) No History of Drug Use (Denied) 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 [...] Days? Yes. Cessation Counseling Provided? No. 06/04/2013 [facility] Family History Value Date S ource Family history of Diabetes Mellitus (V18 .0); (Active) Family history of Epilepsy And Recurrent Seizures (V17.2); (Active) Family history of Heart Disease (V17.49); (Active) Family history of Hypertension (V17.49); (Active) Family history of Stroke Syndrome (V17.1); (Active) Maternal history of Hypertension (V17.49); (Active) Maternal history of Breast Cancer (V16.3); (Active) Maternal history of Rheumatoid Arthritis (Active) 08/08/2013 [facility] Maternal history of Rheumatoid Arthritis (Active) Maternal history of Breast Cancer (V16.3); (Active) Maternal history of Hypertension (V17.49); (Active) Family history of Stroke Syndrome (V17.1); (Active) Family history of Hypertension (V17.49); (Active) Family history of Heart Disease (V17.49); (Active) Family history of Epilepsy And Recurrent Seizures (V17.2); (Active) Family history of Diabetes Mellitus (V18.0); (Active) 08/07/2013 [facility] Family history of Diabetes Mellitus (V18 .0); (Active) Family history of Epilepsy And Recurrent Seizures (V17.2); (Active) Family history of Heart Disease (V17.49); (Active) Family history of Hypertension (V17.49); (Active) Family history of Stroke Syndrome (V17.1); (Active) Maternal history of Hypertension (V17.49); (Active) Maternal history of Breast Cancer (V16.3); (Active) Maternal history of Rheumatoid Arthritis (Active) 07/11/2013 [facility] Family history of Diabetes Mellitus (V18 .0); (Active) Family history of Epilepsy And Recurrent Seizures (V17.2); (Active) Family history of Heart Disease (V17.49); (Active) Family history of Hypertension (V17.49); (Active) Family history of Stroke Syndrome (V17.1); (Active) Maternal history of Hypertension (V17.49); (Active) Maternal history of Breast Cancer (V16.3); (Active) Maternal history of Rheumatoid Arthritis (Active) 07/09/2013 [facility] Family history of Diabetes Mellitus (V18 .0); (Active) Family history of Epilepsy And Recurrent Seizures (V17.2); (Active) Family history of Heart Disease (V17.49); (Active) Family history of Hypertension (V17.49); (Active) Family history of Stroke Syndrome (V17.1); (Active) Maternal history of Hypertension (V17.49); (Active) Maternal history of Breast Cancer (V16.3); (Active) Maternal history of Rheumatoid Arthritis (Active) 06/12/2013 [facility] Family history of Diabetes Mellitus (V18 .0); (Active) Family history of Epilepsy And Recurrent Seizures (V17.2); (Active) Family history of Heart Disease (V17.49); (Active) Family history of Hypertension (V17.49); (Active) Family history of Stroke Syndrome (V17.1); (Active) Maternal history of Hypertension (V17.49); (Active) Maternal history of Breast Cancer (V16.3); (Active) Maternal history of Rheumatoid Arthritis (Active) 05/24/2013 [facility] Family history of Diabetes Mellitus (V18 .0); (Active) Family history of Epilepsy And Recurrent Seizures (V17.2); (Active) Family history of Heart Disease (V17.49); (Active) Family history of Hypertension (V17.49); (Active) Family history of Stroke Syndrome (V17.1); (Active) 05/05/2013 [facility] Family history of Diabetes Mellitus (V18 .0); (Active) Family history of Epilepsy And Recurrent Seizures (V17.2); (Active) Family history of Heart Disease (V17.49); (Active) Family history of Hypertension (V17.49); (Active) Family history of Stroke Syndrome (V17.1); (Active) 04/26/2013 [facility] Family history of Diabetes Mellitus (V18 .0); (Active) Family history of Epilepsy And Recurrent Seizures (V17.2); (Active) Family history of Heart Disease (V17.49); (Active) Family history of Hypertension (V17.49); (Active) Family history of Stroke Syndrome (V17.1); (Active) 04/14/2013 [facility] Family history of Diabetes Mellitus (V18 .0); (Active) Family history of Epilepsy And Recurrent Seizures (V17.2); (Active) Family history of Heart Disease (V17.49); (Active) Family history of Hypertension (V17.49); (Active) Family history of Stroke Syndrome (V17.1); (Active) 01/16/2013 [facility] Family history of Diabetes Mellitus (V18 .0); (Active) Family history of Epilepsy And Recurrent Seizures (V17.2); (Active) Family history of Heart Disease (V17.49); (Active) Family history of Hypertension (V17.49); (Active) Family history of Stroke Syndrome (V17.1); (Active) 11/13/2012 [facility] Family history of Diabetes Mellitus (V18 .0); (Active) Family history of Epilepsy And Recurrent Seizures (V17.2); (Active) Family history of Heart Disease (V17.49); (Active) Family history of Hypertension (V17.49); (Active) Family history of Stroke Syndrome (V17.1); (Active) 10/17/2012 [facility] Family history of Diabetes Mellitus (V18 .0); (Active) Family history of Epilepsy And Recurrent Seizures (V17.2); (Active) Family history of Heart Disease (V17.49); (Active) Family history of Hypertension (V17.49); (Active) Family history of Stroke Syndrome (V17.1); (Active) 10/14/2012 [facility] Advance Directives Order Name Results Value Date Source Advance Directives Advance Dir ectives No Advance Directives available. 08/08/2013 [facility] Advance Directives Advance Dir ectives No Advance Directives available. 08/07/2013 [facility] Advance Directives Advance Dir ectives No Advance Directives available. 07/11/2013 [facility] Advance Directives Advance Dir ectives No Advance Directives available. 07/09/2013 [facility] Advance Directives Advance Dir ectives No Advance Directives available. 06/12/2013 [facility] Advance Directives Advance Dir ectives No Advance Directives available. 05/24/2013 [facility] Advance Directives Advance Dir ectives No Advance Directives available. 05/05/2013 [facility] Advance Directives Advance Dir ectives No Advance Directives available. 04/26/2013 [facility] Advance Directives Advance Dir ectives No Advance Directives available. 04/14/2013 [facility] Advance Directives Advance Dir ectives No Advance Directives available. 01/16/2013 [facility] Advance Directives Advance Dir ectives No Advance Directives available. 11/13/2012 [facility] Advance Directives Advance Dir ectives No Advance Directives available. 10/17/2012 [facility] Advance Directives Advance Dir ectives No Advance Directives available. 10/14/2012 [facility] Functional Status No Data Provided for This Section
--- OUTSIDE RECORDS SUMMARY | 2020-03-15 11:52 | XMS REPORT | Continuity of Care Document ---
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 Name Role Phone NONSTAFF PCP Unavailable Capri ALFORD Attphys Unavailable Idalia Dowell MD Attphys Michelle Rosa DO Attphys MARISSA DBOBS Attphys Unavailable Juan M WALKER Attphys Unavailable JOSE M ESTEVEZ Attphys Unavailable Irais Parker Attphys Capri Rothman Admphys Payers Payer Name Policy Type Policy Number Effective Date Expiration Date S [facility] [employer] Ppo [id number] 2013 00:00:00 [facility] Problems Condition Name Condition Details Condition Category Status Onset Date Resolution Date Last Treatment Date Treating Clinician Comments Source EMU PHASE 1 EMU PHASE 1 Active 04/10/2013 [facility] Diagnosis Active 2013-04-10 00:00:00 2013-06-05 10:22:00 [facility] Marquez FOLLOW UP 4 WEEKS FOLL OW UP 4 WEEKS Active 12/08/2012 [facility] Diagnosis Active 2012-12-08 00:00:00 2012-12 08:54:00 [facility] CHEST PAIN CHES T PAIN Active 11/14/2012 [facility] Diagnosis Active 2012-11-14 00:00:00 2012-11-24 17:09:00 Trinh Zayas NEW PT NEW PT Active 10/30/2012 [facility] Diagnosis Active 2012-10-30 00:00:00 2012-11-14 13:23:00 Trinh Zayas 345.11/ EPLIPSY 345. 11/ EPLIPSY Active 10/26/2012 [facility] Diagnosis Active 2012-10-26 00:00:00 2012-11-27 1 1:53:00 Trinh Zayas Sprain of ankle Problem Active [facility] Final: Tobacco Use Disorder Fi nal: Tobacco Use Disorder 06/27/2013 [facility] Problem 2013-06-27 14 :41:26 Trinh Zayas Seizure Seiz ure Resolved Problem 12/28/2012 [facility] Problem Resolved 2012-12-28 20:47:29 Co basilio Zayas Heart murmur (finding) Hear t murmur (finding) Resolved Problem 06/27/2013 [facility] Problem Resolved 2013-06-27 14:41:26 Trinh Zayas Osteoporosis (disorder) Oste oporosis (disorder) Resolved Problem 06/27/2013 [facility] Problem Resolved 2013-06-27 14:41:26 Trinh Zayas Seizure (finding) Seiz ure (finding) Resolved Problem 06/27/2013 [facility] Problem Resolved 2013-06-27 1 4:41:26 Trinh Zayas Convulsive [place] Seizure With Intractable Seizure 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 08/08/2013 [facility] Problem Active 2013-08-08 17:03:14 M alicia Zayas Acute Upper Respiratory Infection Acute Upper Respiratory Infection Active 06/12/2013 [facility] Problem Active 2013-06-12 16:48:01 Trinh Zayas Abnormal Glucose Abno rmal Glucose Active 08/08/2013 [facility] Problem Active 2013-08-08 17:03:14 M alicia Zayas 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 [facility] Problem Active 2013-08-08 17:03:14 Trinh Zayas Anxiety Disorder NOS Anxi ety Disorder NOS Active 08/08/2013 [facility] Problem Active 2013-08-08 17:03:14 Trinh Zayas EPILEPSY NOS-INTRACTABLE EPIL EPSY NOS-INTRACTABLE Active [facility] Diagnosis Active 2013-06-05 10:22:00 [facility] Final: Other Convulsions Cleo l: Other Convulsions 06/15/2013 06/27/2013 [facility] Problem 2013-05 03:56:23 2013-06-27 14:41:26 2013-06-27 14:41:26 [facility] Allergies, Adverse Reactions, Alerts Allergy Name Allergy Type Status Severity Reaction(s) Onset Date Inacti ve Date Treating Clinician Comments Source Pregabalin Propensity to adverse reactions Active Othe r (See Comments) 2018-11-15 00:00:00 Palpitation [facility] Lyrica Lyrica Active [facility] ermann Lyrica CAPS Lyrica CAPS Active [facility] Aspirin TABS Aspirin TABS Active [facility] Family History Family Member Diagnosis Comments Start Date Stop Date Source Unknown Family Member Family History 2012-10-14 04:48:51 2 04:48:51 [facility] Social History Social Habit Start Date Stop Date Quantity Comments Source Sex Assigned At [facility] Social History 2013-06-04 19:23:18 2013-06-04 19:23:18 [facility] Medications Ordered Medication Name Filled Medication Name Start Date Stop Da te Current Medication? Ordering Clinician Indication Dosage Frequency Signature (SIG) Comments Components Source Escitalopram Oxalate 5 MG Oral Tablet 2013-08-08 05:00:00 Y es ; Start Date: 08/08/2013; End Date: (Active) [facility] [place] BusPIRone HCl 15 MG Oral Tablet 2013-06-11 06:00:00 Yes ; Start Date: 06/11/2013 (Active) [facility] citalopram 10 mg oral tablet 2013-06-08 15:31:00 Yes 10 mg = 1 tab, PO, Daily, # 30 tab, 3 Refill(s) Memoria pato Zayas Trileptal 2013-06-04 23:00:00 No 600 mg, 2 tab, Route: PO, Drug form: TAB, BID, Dosing Weight 59.545, kg, Start date: 06/04/13 17:00:00, Duration: 30 day, Stop date: 07/04/13 9:00:00Do not crush or chew. (Same as: Trileptal) [facility] Keppra 2013-06-04 23:00:00 No 1,500 mg, 3 tab, Route: PO, Drug form: TAB, BID, Dosing Weight 59.545, kg, Start date: 06/04/13 17:00:00, Duration: 30 day, Stop date: 07/04/13 9:00:00(Same as:Paul) [facility] Ibuprofen 2013-06-04 20:31:00 Yes OT C 1 tab, PO, PRN, 0 Refill(s) [facility] aspirin 325 mg tablet 2013-06-04 20:31:00 Yes 325 mg = 1 tab, PO, Daily [facility] [place] Docusate 2013-06-04 19:44:00 No 100 mg, 1 cap, Route: PO, Drug form: CAP, BID, Dosing Weight 59.545, kg, PRN Constipation, Start date: 06/04/13 13:44:00, Duration: 30 day, Stop date: 07/04/13 13:43:00(Same as: Colace) (Do Not Crush) [facility] oxcarbazepine 300 MG Oral Tablet [Trileptal] 2013-06-04 19:38:00 No 600 mg = 2 tab, PO, BID, 0 Refill(s) Mem orial Marquezolga Miller 2013-06-04 19:38:00 No 1,500 mg, PO, BID, 0 Refill(s) [facility] Levetiracetam 500 MG Oral Tablet [Keppra] 2013-06-04 19:00:00 No 500 mg, 1 tab, Route: PO, Drug form: TAB, TID, Dosing Weight 59.545, kg, Start date: 06/04/13 13:00:00, Duration: 30 day, Stop date: 07/04/13 9:00:00(Same as:Paul) [facility] Cefdinir 300 MG Oral Capsule 2013-04-14 06:00:00 Yes ; Start Date: 04/14/2013; End Date: (Active) [facility] OXcarbazepine 300 MG Oral Tablet 2012-11-30 05:00:00 Yes ; Start Date: 11/30/2012; End Date: (Active) [facility] LevETIRAcetam 500 MG Oral Tablet 2012-11-13 18:32:09 Yes (Active) Trinh Zayas LevETIRAcetam 500 MG Oral Tablet Yes ; Start Date: ; End Date: (Active) Trinh Zayas Sertraline Hcl (Zoloft) 50 Mg TABLET Sertraline Hcl (Zoloft) 50 Mg TABLET Yes 50 Daily [facility] Vital Signs Vital Name Observation Time Observation Value Comments Source Weight 2019-10-28 17:56:00 140 [lb_av] [facility] BMI (Body Mass Index) 2019-10-28 17:56:00 24.0 kg/m2 [facility] Temperature Oral (F) 2013-06-08 14:53:00 98.4 F [facility] Systolic (mm Hg) 2013-06-08 14:53:00 [facility] [place] Heart Rate 2013-06-08 14:53:00 [facility] Respitory Rate 2013-06-08 14:53:00 [facility] Diastolic (mm Hg) 2013-06-08 14:53:00 Mem [facility] [place] Temperature Oral (F) 2013-06-08 02:49:00 98.2 F [facility] Heart Rate 2013-06-08 02:49:00 [facility] [place] Respitory Rate 2013-06-08 02:49:00 [facility] [place] Systolic (mm Hg) 2013-06-08 02:49:00 [facility] Diastolic (mm Hg) 2013-06-08 02:49:00 [facility] Heart Rate 2013-06-07 14:31:00 [facility] [place] Temperature Oral (F) 2013-06-07 14:31:00 98.2 F [facility] Systolic (mm Hg) 2013-06-07 14:31:00 Marcus rial [place] Diastolic (mm Hg) 2013-06-07 14:31:00 [facility] Respitory Rate 2013-06-07 14:31:00 [facility] [place] Height 2013-06-04 15:55:00 162.56 cm [facility] Weight 2013-06-04 15:55:00 [facility] BMI Calculated 2013-06-04 15:55:00 Rachelle [facility] Height 2012-11-20 12:52:00 162.56 cm [facility] Weight 2012-11-20 12:52:00 [facility] Weight 2012-11-14 20:41:00 [facility] Height 2012-11-14 20:41:00 162.56 cm [facility] Procedures Procedure Date / Time Performed Performing Clinician [facility] e Computed tomography of brain without radiopaque contrast 2019-10 00:00:00 [facility] Total abdominal hysterectomy<sup>1</sup> 2000-04-18 00:00:00 [facility] Plan of Care Planned Activity Planned Date Details Comments Source Future Scheduled Test 2019-12-18 00:00:00 INFLUENZA VACCINE (#1) [code = INFLUENZA VACCINE (#1)] [facility] Future Scheduled Test 2013-08-08 17:03:14 Plan of Care [code = 1877 6-5] [facility] Future Scheduled Test 2013-08-07 16:02:42 Plan of Care [code = 1877 6-5] [facility] Future Scheduled Test 2013-07-11 15:32:56 Plan of Care [code = 1877 6-5] [facility] Future Scheduled Test 2013-07-09 13:34:23 Plan of Care [code = 1877 6-5] [facility] Future Scheduled Test 2013-06-12 16:48:01 Plan of Care [code = 1877 6-5] [facility] Future Scheduled Test 2013-05-24 23:16:54 Plan of Care [code = 1877 6-5] [facility] Future Scheduled Test 2013-05-05 18:00:34 Plan of Care [code = 1877 6-5] [facility] Future Scheduled Test 2013-04-26 22:47:50 Plan of Care [code = 1877 6-5] [facility] Future Scheduled Test 2013-04-14 21:31:10 Plan of Care [code = 1877 6-5] [facility] Future Scheduled Test 2013-01-16 14:49:35 Plan of Care [code = 1877 6-5] [facility] Future Scheduled Test 2012-11-13 18:32:09 Plan of Care [code = 1877 6-5] [facility] Scheduled Test 2012-10-17 10:46:27 Plan of Care [code = 1877 6-5] [facility] Scheduled Test 2012-10-14 04:48:51 Plan of Care [code = 1877 6-5] [facility] Scheduled Test 2005 00:00:00 Lipid panel (proce dure) [code = 27873055] [facility] r Future Scheduled Test 1981 00:00:00 Screening for ajay gnant neoplasm of cervix (procedure) [code = 402602139] [facility] Future Scheduled Test 1960 00:00:00 Screening for ajay gnant neoplasm of breast (procedure) [code = 433147866] [facility] Future Scheduled Test 1960 00:00:00 Screening for ajay gnant neoplasm of colon (procedure) [code = 400738474] [facility] Sp[facility] - Ankle [facility] Encounters Start Date/Time End Date/Time Encounter Type Admission Type Attendi [facility] Care Department Encounter ID Source 2019-10-28 18:00:00 2019-10-28 22:13:00 Departed Emergency Room SOFIA ALFORD [facility] [id number] [facility] 2019-05-28 13:51:18 2019-05-28 14:11:18 Office Visit Idalia Dowell [facility] [id number] 2019-05-11 07:19:51 2019-05-11 07:45:43 Office Visit Michelle Rosa [facility] [id number] 2019-02-19 11:03:13 2019-02-19 11:23:13 Office Visit Michelle Rosa [facility] [id number] 2019-02-07 08:37:03 2019-02-07 08:57:03 Office Visit Michelle Rosa [facility] [id number] 2018-08-27 03:18:00 2018-08-27 05:48:00 Departed Emergency Room 1 ZENAIDA WALKER [facility] [id number] [facility] 2013-08-08 12:03:14 2013-08-08 12:03:14 Outpatient MHIE MHIE [id number] 2013-08-07 11:02:43 2013-08-07 11:02:42 Outpatient MHIE MHIE [id number] 2013-07-11 10:32:57 2013-07-11 10:32:56 Outpatient MHIE MHIE [id number] 2013-07-09 08:34:23 2013-07-09 08:34:23 Outpatient MHIE MHIE [id number] 2013-06-12 10:48:01 2013-06-12 10:48:01 Outpatient MHIE MHIE [id number] 2013-06-04 09:36:00 2013-06-08 11:18:00 Outpatient Prem Desai [facility]IE MHIE [id number] 2013-05-24 17:16:54 2013-05-24 17:16:54 Outpatient MHIE MHIE [id number] 2013-05-05 12:00:35 2013-05-05 12:00:34 Outpatient MHIE MHIE [id number] 2013-04-26 16:47:50 2013-04-26 16:47:50 Outpatient MHIE MHIE [id number] 2013-04-14 15:31:10 2013-04-14 15:31:10 Outpatient MHIE MHIE [id number] 2013-01-16 09:49:35 2013-01-16 09:49:35 Outpatient MHIE MHIE [id number] 2012-11-13 13:32:10 2012-11-13 13:32:09 Outpatient MHIE MHIE [id number] 2012-10-17 05:46:48 2012-10-17 05:46:27 Outpatient MHIE MHIE [id number] 2012-10-13 23:49:11 2012-10-13 23:48:51 Outpatient [facility] [id number] Results Test Description Test Time Test Comments Results Result Comments Source CHEST SINGLE (PORTABLE) 2020-03-15 10:59:00 [facility] : 1960 Sex: F [place] [address] Patient Name: FARHANA BABCOCK MR #: [id number] : 1960 Age/Sex: 59/F Req #: [id number] [facility] Physician: Ordered by: SOFIA ALFORD MD Report #: [id number] Location: ER Room/Bed: Procedure: [id number] DX/CHEST SINGLE (PORTABLE) Exam Date: 03/15/20 Exam Time: 101 REPORT STATUS: Signed EXAMINATION: CHEST SINGLE (PORTABLE) INDICATION: sz vs syncope 20200315 COMPARISON: None FINDINGS: TUBES and LINES: None. LUNGS: Normal lung volumes. Lungs are clear. No consolidations. There is bibasilar atelectasis. PLEURA: No pleural effusion or pneumothorax. HEART AND MEDIASTINUM: The cardiomediastinal silhouette is unremarkable. BONES AND SOFT TISSUES: No acute osseous lesion. Soft tissues are unremarkable. UPPER ABDOMEN: No free air under the diaphragm. IMPRESSION: 1. No acute thoracic radiographic abnormality. 2. Bibasilar atelectasis. Signed by: Melissa Quiles MD on 03/15/2020 11:00 AM Dictated By: MELISSA QUILES MD 99 Transcribed By: ESMER on 03/15/201099 COPY TO: SOFIA ALFORD MD CT BRAIN WO 2020-03-15 10:37:00 [facility] : 1960 Sex: F [place] [address] Patient Name: FARHANA BABCOCK MR #: [id number] : 1960 Age/Sex: 59/F Req #: [id number] [facility] Physician: Ordered by: SOFIA ALFORD MD Report #: [id number] Location: ER Room/Bed: Procedure: [id number] CT/CT BRAIN WO Exam Date: 03/15/20 Exam Time: 1015 REPORT STATUS: Signed Exam: Head CT without contrast History: Syncope Comparison studies: Head CT 10/28/2019 08/27/2018. Technique: Axial images were obtained from the skull base to the vertex. Coronal and sagittal images reconstructed from the axial data. Dose modulation, iterative reconstruction, and/or weight based adjustment of the mA/kV was utilized to reduce the radiation dose to as low as reasonably achievable. Radiation dose: Total DLP: 1843 mGy*cm. Estimated effective dose: DLP x 0.015 Intravenous contrast: None Findings: Scalp: No abnormalities. Bones: No fractures, blastic or lytic lesions. Brain sulci: Appropriate for age. Ventricles: Normal in size and configuration. No hydrocephalus. Extra-axial spaces: No masses, no fluid collection. Parenchyma: No abnormal densities. No masses, hemorrhage, acute or chronic vascular insults. Sellar/suprasellar region: No abnormalities. Craniocervical junction: Patent foramen magnum. No Chiari one malformation. Incidental findings: Atherosclerotic calcifications in the carotid siphons. Nonspecific secretions in the sphenoid sinuses are new from the prior CT. IMPRESSION: 1. No intracranial abnormalities. 2. Nonspecific sphenoid sinusitis. 3. No other changes from the prior head CT of 10/28/2019. Signed by: Dr. Francisco Sorenson M.D. on 03/15/2020 10:45 AM Dictated By: FRANCISCO SORENSON MD 1045 Transcribed By: ESMER on 03/15/20 1045 COPY TO: SOFIA ALFORD MD CT BRAIN WO 2019-10-28 18:57:00 [place] [address] Patient Name: FARHANA BABCOCK MR #: [id number] : 1960 Age/Sex: 59/F Req #: [id number] Adm Physician: Ordered by: SOFIA ALFORD MD Report #: [id number] Location: ER Room/Bed: Procedure: [id number] CT/CT BRAIN WO Exam Date: 10/28/19 Exam [...] MD ANKLE 3+ VIEWS LEFT 2019-10-28 18:31:00 [place] [address] Patient Name: FARHANA BABCOCK MR #: [id number] : 1960 Age/Sex: 59/F Req #: [id number] Adm Physician: Ordered by: SOFIA ALFORD MD Report #: [id number] Location: ER Room/Bed: Procedure: DX/ANKLE 3+ VIEWS LEFT Exam Date: 10/28/19 Exam Time: 1819 [...] ALFORD MD LOWER LEG LEFT 2019-10-28 18:31:00 [place] [address] Patient Name: FARHANA BABCOCK MR #: [id number] : 1960 Age/Sex: 59/F Req #: [id number] Adm Physician: Ordered by: SOFIA ALFORD MD Report #: [id number] Location: ER Room/Bed: Procedure: DX/LOWER LEG LEFT Exam Date: 10/28/19 Exam Time: 1820 [...] = 1859) 0.8 mg/dL 0.6-1.[address] [facility] [address] [facility] [address] POC-EGFR (BEAKER) (test code = 1860) 74 mL/min/1.73M2 CT, CHEST, WITH IV CONTRAST- PE TEST [id number] 13:54:00FINAL REPORT EXAM: CT Chest WITH contrast [...] pulmonary embolism. Emphysematous change. Signed: Juan Scott MDReport Verified Date/Time: 11/15/2018 13:54:33 Reading Location: [facility] Reading Room [address] [place] [address] Creatine Kinase [id number] 04:48:00* Test Item Value Reference Range Interpretation Comments Creatine Kinase MB (test code = 01654-2) 0.60 0-5.0 [facility] [id number] 04:48:00* Test Item Value Reference Range Interpretation Comments Troponin I (test code = FKJ5281) < 0.001 0-0.300 [facility] [id number] 04:41:00* Test Item Value Reference Range Interpretation Comments Sodium Level (test code = 2951-2) 140 136-145 [facility]assium [id number] 04:41:00* Test Item Value Reference Range Interpretation Comments Potassium Level (test code = 2823-3) 4.3 3.5-5.1 [facility] CenterChloride [id number] 04:41:00* Test Item Value Reference Range Interpretation Comments Chloride Level (test code = 2075-0) 105 98-107 [facility] CenterCarbon Dioxide [id number] 04:41:00* Test Item Value Reference Range Interpretation Comments Carbon Dioxide Level (test code = 2028-9) 26 22-29 [facility] CenterAnion [id number] 04:41:00* Test Item Value Reference Range Interpretation Comments Anion Gap (test code = 79201-1) 13.3 8-16 [facility] CenterBlood Urea [id number] 04:41:00* Test Item Value Reference Range Interpretation Comments Blood Urea Nitrogen (test code = 3094-0) 17 7-26 [facility] CenterCreatinine2019-05-12 04:41:00* Test Item Value Reference Range Interpretation Comments Creatinine (test code = 2160-0) 0.75 0.57-1.11 [facility] CenterBUN/Creatinine [id number] 04:41:00* Test Item Value Reference Range Interpretation Comments BUN/Creatinine Ratio (test code = 3097-3) 23 6-25 [facility] CenterEstimat Glomerular Filtration Rate 2018-08-27 04:41:00* Test Item Value Reference Range Interpretation Comments Estimat Glomerular Filtration Rate (test code = 541922268) > 60 >60 Ranges were taken from the National Kidney Disease Education Program and the [facility] Foundation literature.Reference ranges:60 or greater: Pqntlr78-94 ( for 3 consecutive months): Chronic kidney disease 15 or less: Kidney failureGrace Medical CenterGlucose Obpzw1511-57-45 04:41:00* Test Item Value Reference Range Interpretation Comments Glucose Level (test code = TEY6581) 95 74-118 [facility] CenterCalcium [id number] 04:41:00* Test Item Value Reference Range Interpretation Comments Calcium Level (test code = 79370-3) 9.9 8.4-10.2 [facility] CenterTotal Vzwjepydy0602-39-45 04:41:00* Test Item Value Reference Range Interpretation Comments Total Bilirubin (test code = 1975-2) 0.2 0.2-1.2 [facility] CenterAspartate Amino Transf (AST/SGOT) 2018-08-27 04:41:00* Test Item Value Reference Range Interpretation Comments Aspartate Amino Transf (AST/SGOT) (test code = Aspartate Amino Transf (AST/SGOT)) 17 5-34 [facility] CenterAlanine Aminotransferase (ALT/SGPT) 2018-08-27 04:41:00* Test Item Value Reference Range Interpretation Comments Alanine Aminotransferase (ALT/SGPT) (test code = 1742-6) 22 0-55 [facility] CenterTotal [id number] 04:41:00* Test Item Value Reference Range Interpretation Comments Total Protein (test code = 2885-2) 6.9 6.5-8.1 [facility] CenterAlbumin2019-05-12 04:41:00* Test Item Value Reference Range Interpretation Comments Albumin (test code = 1751-7) 4.0 3.5-5.0 [facility] CenterGlobulin2019-05-12 04:41:00* Test Item Value Reference Range Interpretation Comments Globulin (test code = 08676-1) 2.9 2.3-3.5 [facility] CenterAlbumin/Globulin [id number] 04:41:00 * Test Item Value Reference Range Interpretation Comments Albumin/Globulin Ratio (test code = 1759-0) 1.4 0.8-2.0 [facility] CenterAlkaline [id number] 04:41:00* Test Item Value Reference Range Interpretation Comments Alkaline Phosphatase (test code = 6768-6) 65 40-150 [facility] CenterCreatine Zgixwq1650-14-22 04:41:00* Test Item Value Reference Range Interpretation Comments Creatine Kinase (test code = 2157-6) 42 29-168 [facility] CenterUrine [id number] 04:30:00* Test Item Value Reference Range Interpretation Comments Urine WBC (test code = 5821-4) 0-5 0-5 [facility] CenterUrine [id number] 04:30:00* Test Item Value Reference Range Interpretation Comments Urine RBC (test code = 09195-1) 6-10 0-5 H [facility] CenterUrine [id number] 04:30:00* Test Item Value Reference Range Interpretation Comments Urine Bacteria (test code = 79000-2) RARE NONE [facility] CenterU[facility] Epithelial [id number] 04:30:00 * Test Item Value Reference Range Interpretation Comments Urine Epithelial Cells (test code = 39174-8) FEW NONE [facility] CenterU[facility] Hyaline [id number] 04:30:00* Test Item Value Reference Range Interpretation Comments Urine Hyaline Casts (test code = 01272-2) 0-1 0-1 [facility] CenterU[facility] [id number] 04:25:00* Test Item Value Reference Range Interpretation Comments Urine Color (test code = 5778-6) YELLOW YELLOW [facility] CenterUrine [id number] 04:25:00* Test Item Value Reference Range Interpretation Comments Urine Clarity (test code = 62764-3) CLEAR CLEAR [facility] CenterUrine Specific [id number] 04:25:00 * Test Item Value Reference Range Interpretation Comments Urine Specific [place] (test code = 5811-5) 1.010 1.010-1.02 5 [facility] CenterU[facility] [id number] 04:25:00* Test Item Value Reference Range Interpretation Comments Urine pH (test code = 59427-7) 7 5-7 [facility] Center[facility] Leukocyte Qonohtrg3602-64-06 04:25:00* Test Item Value Reference Range Interpretation Comments Urine Leukocyte Esterase (test code = 5799-2) NEGATIVE NEGATIVE [facility] CenterU[facility] [id number] 04:25:00* Test Item Value Reference Range Interpretation Comments Urine Nitrite (test code = 96188-7) NEGATIVE NEGATIVE [facility] CenterUrine [id number] 04:25:00* Test Item Value Reference Range Interpretation Comments Urine Protein (test code = 5804-0) NEGATIVE NEGATIVE [facility] CenterUrine Glucose (UA)2018-08-27 04:25:00* Test Item Value Reference Range Interpretation Comments Urine Glucose (UA) (test code = 2349-9) NEGATIVE NEGATIVE [facility] CenterUrine [id number] 04:25:00* Test Item Value Reference Range Interpretation Comments Urine Ketones (test code = 43123-8) NEGATIVE NEGATIVE [facility] CenterUrine Opiates [id number] 04:25:00* Test Item Value Reference Range Interpretation Comments Urine Opiates Screen (test code = 86871-8) NEGATIVE NEGATIVE ALL TESTS PERFORMED MANUALLY ON iFlipd TOX/SEE TESTGrace Medical CenterUrine Barbiturates [id number] 04:25:00* Test Item Value Reference Range Interpretation Comments Urine Barbiturates Screen (test code = [id number]) NEGATIVE NEGA TIVE [facility] Phencyclidine Fupptz4838-41-95 04:25:00* Test Item Value Reference Range Interpretation Comments Urine Phencyclidine Screen (test code = 11016-0) NEGATIVE NEGAT WILL [facility] Amphetamines Devkbt2179-06-73 04:25:00* Test Item Value Reference Range Interpretation Comments Urine Amphetamines Screen (test code = 31847-6) NEGATIVE NEGATI VE [facility] Methamphetamines Vzuswv4043-79-09 04:25:00* Test Item Value Reference Range Interpretation Comments Urine Methamphetamines Screen (test code = Urine Metha mphetamines Screen) NEGATIVE NEGATIVE [facility] Benzodiazepines Jgkbuw1449-47-93 04:25:00* Test Item Value Reference Range Interpretation Comments Urine Benzodiazepines Screen (test code = 03908-6) NEGATIVE NEG ATIVE [facility] Cocaine Aqorrz6519-35-10 04:25:00* Test Item Value Reference Range Interpretation Comments Urine Cocaine Screen (test code = 3398-5) NEGATIVE NEGATIVE [facility] Cannabinoids Vlunaa7690-01-39 04:25:00* Test Item Value Reference Range Interpretation Comments Urine Cannabinoids Screen (test code = 78638-7) NEGATIVE NEGATI VE THESE RESULTS ARE FOR MEDICAL TREATMENT ONLYTHIS REPORT CONTAINS UNCONFIR MED SCREENING RESULTS*POSITIVE RESULTS WILL BE CONFIRMED BY REFERENCE LAB UPON R EQUEST CUT-OFFDRUG CLASS CONCENTRATION ng/mLAmphetamines 1000Methamphetamines 1000Cocaine 300Opiate 300Phencyc lidine 25Cannabinoid 50Barbiturates 300Benzodiazepine 300Methadone 300[facility]adone Kvprrb9153-97-42 04:25:00* Test Item Value Reference Range Interpretation Comments Urine Methadone Screen (test code = 89609-1) NEGATIVE NEGATIVE THESE RESULTS ARE FOR MEDICAL TREATMENT ONLYTHIS REPORT CONTAINS UNCONFIR MED SCREENING RESULTS*POSITIVE RESULTS WILL BE CONFIRMED BY REFERENCE LAB UPON R EQUEST CUT-OFFDRUG CLASS CONCENTRATION ng/mLAmphetamines 1000Methamphetamines 1000Cocaine Metabolite 300Opiate 300Phencyc lidine 25Cannabinoid 50Barbiturates 300Benzodiazepine 300Methadone 300[facility] Wmqycigzriqg5382-02-18 04:25:00* Test Item Value Reference Range Interpretation Comments Urine Urobilinogen (test code = 67263-3) 0.2 0.2-1 [facility] Nkqedtqov1984-33-30 04:25:00* Test Item Value Reference Range Interpretation Comments Urine Bilirubin (test code = 1978-6) NEGATIVE NEGATIVE [facility] Jmvdq3886-31-82 04:25:00* Test Item Value Reference Range Interpretation Comments Urine Blood (test code = 10201-6) 1+ NEGATIVE H [facility]White Blood Zulbt1386-42-13 04:24:00* Test Item Value Reference Range Interpretation Comments White Blood Count (test code = 6690-2) 7.07 4.8-10.8 [facility] Ouoob2334-99-45 04:24:00* Test Item Value Reference Range Interpretation Comments Red Blood Count (test code = 789-8) 4.50 3.6-5.1 [facility] CenterHemoglobin2019-05-12 04:24:00* Test Item Value Reference Range Interpretation Comments Hemoglobin (test code = 60094-4) 14.3 12.0-16.0 [facility] CenterHematocrit2019-05-12 04:24:00* Test Item Value Reference Range Interpretation Comments Hematocrit (test code = 4544-3) 42.4 34.2-44.1 [facility] CenterMean Corpuscular Onjdmp2215-99-77 04:24:00* Test Item Value Reference Range Interpretation Comments Mean Corpuscular Volume (test code = 787-2) 94.2 81-99 [facility]Mean Corpuscular Loglwhdeqr6061-15-11 04:24:00* Test Item Value Reference Range Interpretation Comments Mean Corpuscular Hemoglobin (test code = 785-6) 31.8 28-32 [facility] CenterMean Corpuscular Hemoglobin Concent 2018-08-27 04:24:00* Test Item Value Reference Range Interpretation Comments Mean Corpuscular Hemoglobin Concent (test code = 786-4) 33.7 31-35 [facility] Center[facility] Cell Distribution Ccnio1192-73-98 04:24:00* Test Item Value Reference Range Interpretation Comments Red Cell Distribution Width (test code = 54081-1) 11.8 11.7 -14.4 [facility] CenterPlatelet Dxmdn5872-63-68 04:24:00* Test Item Value Reference Range Interpretation Comments Platelet Count (test code = 777-3) 198 140-360 [facility] CenterNeutrophils (%) (Auto)2018-08-27 04:24:00 * Test Item Value Reference Range Interpretation Comments Neutrophils (%) (Auto) (test code = 97827-2) 51.9 38.7-80.0 [facility] CenterLymphocytes (%) (Auto)2018-08-27 04:24:00 * Test Item Value Reference Range Interpretation Comments Lymphocytes (%) (Auto) (test code = 736-9) 35.9 18.0-39.1 [facility] CenterMonocytes (%) (Auto)2018-08-27 04:24:00* Test Item Value Reference Range Interpretation Comments Monocytes (%) (Auto) (test code = 5905-5) 9.5 4.4-11.3 [facility] CenterEosinophils (%) (Auto)2018-08-27 04:24:00 * Test Item Value Reference Range Interpretation Comments Eosinophils (%) (Auto) (test code = 713-8) 1.7 0.0-6.0 [facility] CenterBasophils (%) (Auto)2018-08-27 04:24:00* Test Item Value Reference Range Interpretation Comments Basophils (%) (Auto) (test code = 706-2) 0.6 0.0-1.0 [facility] CenterIM GRANULOCYTES %2018-08-27 04:24:00* Test Item Value Reference Range Interpretation Comments IM GRANULOCYTES % (test code = IM GRANULOCYTES %) 0.4 0.0- 1.0 [facility] CenterNeutrophils # (Auto)2018-08-27 04:24:00* Test Item Value Reference Range Interpretation Comments Neutrophils # (Auto) (test code = 751-8) 3.7 2.1-6.9 [facility] CenterLymphocytes # (Auto)2018-08-27 04:24:00* Test Item Value Reference Range Interpretation Comments Lymphocytes # (Auto) (test code = 44136-1) 2.5 1.0-3.2 [facility] CenterMonocytes # (Auto)2018-08-27 04:24:00* Test Item Value Reference Range Interpretation Comments Monocytes # (Auto) (test code = 742-7) 0.7 0.2-0.8 [facility] CenterEosinophils # (Auto)2018-08-27 04:24:00* Test Item Value Reference Range Interpretation Comments Eosinophils # (Auto) (test code = 711-2) 0.1 0.0-0.4 [facility] CenterBasophils # (Auto)2018-08-27 04:24:00* Test Item Value Reference Range Interpretation Comments Basophils # (Auto) (test code = 704-7) 0.0 0.0-0.1 [facility] CenterAbsolute Immature Granulocyte (auto 2018-08-27 04:24:00* Test Item Value Reference Range Interpretation Comments Absolute Immature Granulocyte (auto (wesley t code = Absolute Immature Granulocyte (auto) 0.03 0-0.1 [facility] CenterCT BRAIN [id number] 04:18:00 [place] [address] Patient Name: FARHANA BABCOCK MR #: [id number] : 1960 Age/Sex: 58/F Req #: [id number] Adm Physician: Ordered by: ZENAIDA WALKER MD Report #: [id number] Location: ER Room/Bed: Procedure: [id number] CT/CT BRAIN WO Exam Date: 08/27/18 Exam [...] on 08/27/18422 COPY TO: ZENAIDA WALKER MD WORR2963-27-32 20:00:00* Test Item Value Reference Range Interpretation Comments PARTIAL THROMBOPLASTIN TIME (BEAKER) (test code = 760) 29.9 seconds 22.5-36.0 PROTHROMBIN TIME/LSP3815-18-58 19:58:00* Test Item Value Reference Range Interpretation Comments PROTIME (BEAKER) (test code = 759) 12.4 seconds 11.7-14.7 INR (BEAKER) (test code = 370) 0.9 <=5.9 RECOMMENDED COUMADIN/WARFARIN INR THERAPY RANGESSTANDARD DOSE: 2.0 - 3.0 Inclu eladio: PROPHYLAXIS for venous thrombosis, systemic embolization; TREATMENT for polina ous thrombosis and/or pulmonary embolus.HIGH RISK: Target INR is 2.5-3.5 for pat ients with mechanical heart valves.TROPONIN [id number] 19:55:00* Test Item Value Reference Range Interpretation [...] = 700) 14 pg/mL 0-100 COMPREHENSIVE METABOLIC QLBGH1009-47-63 19:51:00* Test Item Value Reference Range Interpretation [...] INSUFFICIENT CLINICAL DATA TO CALCULATE ESTIMATED GFR. GAYEZUYUP2323-88-25 19:49:00* Test Item Value Reference Range Interpretation Comments MAGNESIUM (BEAKER) (test code = 627) 2.2 mg/dL 1.6-2.6 URINALYSIS W/ PHOHNAMDESQ5598-54-86 19:39:00* Test Item Value Reference Range Interpretation [...] Clean Catch CBC W/PLT COUNT & AUTO ALISCCGJUAQY9557-92-31 19:33:00* Test Item Value Reference Range Interpretation [...] 2801) 0 % 0-1 CT, BRAIN, WITHOUT [id number] 18:19:00Reason for exam:->LOSS OF CONSCIOUSNESSIs the patient [...] MDReport Verified Date/Time: 08/10/2018 18:19:43 Reading Location: [facility] Radiology Reading Room KTWMF5803-35-89 16:22:71586Xmxlrzlu HermannCHEM FGIZX5898-05-65 16:22:0025 [facility] HermannCHEM VENQF7418-14-07 16:22:17214Mrylvnbg HermannCHEM PANEL 2013-06-04 16:22:004.0[facility] HermannCHEM TYFXW8335-64-94 16:22:008.8[facility] HermannCHEM ZRYEU3265-98-42 16:22:0020[facility] HermannCHEM JNJWB8854-37-03 16:22:006.9[facility] HermannCHEM AGNUP6130-59-17 16:22:000.2[facility] HermannCHEM XJOIP1012-56-95 16:22:0014[facility] HermannCHEM XEUWJ3089-94-81 16:22:0074 [facility] HermannCHEM ZVHIL8847-13-92 16:22:0086[facility] HermannCHEM PANEL 2013-06-04 16:22:004.2[facility] HermannCHEM NAKPU0339-06-36 16:22:0039[facility] HermannCHEM JIEJX8361-62-38 16:22:88724Heowayfy HermannCHEM TARRB7612-13-02 16:22:000.5[facility] HermannCHEM PMHCH5504-34-53 16:22:001.6[facility] HermannCHEM EKBBX7644-67-47 16:22:002.7[facility] HermannCHEM YZWEZ9708-34-95 16:22:0011.0 [facility] HermannCHEM BTFNU0204-74-96 16:22:0028[facility] HermannCHEM PANEL 2013-06-04 16:22:000.1[facility] OiicgzwKYGNPCDFZU6996-60-27 16:22:008.8[facility] QezuyxwLNSIZCVMGW4385-48-79 16:22:0034.0[facility] JupkhfsLJLBMAOYMP5540-22-95 16:22:40714Pyydrmtz BsgznsfIITKIWQWLY8819-50-04 16:22:0012.9[facility] [place] COUHBNQKDG0831-78-61 16:22:0095.9[facility] WhuwqdfKNPDIGLEQX7186-14-95 16:22:00* Test Item Value Reference Range Interpretation Comments MCH (test code = MCH) 32.6 pg 27.0-31.0 [facility] PakuvajYUACQQVRSN4945-72-95 16:22:004.25[facility] HermannHEMATOLOGY 2013-06-04 16:22:0040.7[facility] FcunslvARVZXPVFSX8040-37-03 16:22:0013.8[facility] YvdsefcFOPFKVHMYV6224-89-66 16:22:005.9[facility] CuajzkqUVGTYCAGMZ9711-93-76 16:22:001.5[facility] JksdgqnGJPSWYHJQU1301-21-64 16:22:003.7[facility] ZXSJAKHRVE6600-09-80 16:22:000.5[facility] GrvlmqiEVNQZCVBUV3425-58-06 16:22:00 63.2[facility] AdtqudcRTQGMEJODQ9392-10-12 16:22:0026.1[facility] HermannHEMATOLOGY 2013-06-04 16:22:009.2[facility] WwfwobdKGJORCVRQO6654-02-42 16:22:000.8[facility] TviyuvyCAYGVQBBQW7155-62-33 16:22:000.7[facility] PqwriaoUAHOIPSBET7769-85-24 16:22:0027.6[facility] IdvhpiwRNHFLLDLOR6101-65-85 16:22:0043[facility]
--- OUTSIDE RECORDS SUMMARY | 2020-03-15 11:52 | XMS REPORT | Clinical Summary ---
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 [id number] [id number] CARE POS SELECT resent CHOICE 2014
[2020-03-15] MEDS: FAMOTIDINE 20 MG/2 ML VIAL IV SCH ×2 (13:24→23:45)
[2020-03-15 14:39] VITALS: BP 111/70
[2020-03-15 15:00] VITALS: BP 111/70
--- NOTE | 2020-03-15 15:01 | NUR ---
PATIENT AAOX3. ACYANOTIC. ARRIVED TO UNIT AT APPROXIMATELY 1435. NO DISTRESS NOTED. CALL LIGHT IN REACH. SIDE RAILS UP X2. BED LOW AND LOCKED SPOUSE PRESENT AT BEDSIDE. .
[2020-03-15] MEDS ORDERED: ACETAMINOPHEN 325 MG TAB PO PRN (15:30)
[2020-03-15] MEDS ORDERED: POLYETHYLENE GLYCOL 3350 17 GM PACK PO PRN (15:30)
[2020-03-15] MEDS ORDERED: HYDRALAZINE HCL 20 MG/ML VIAL IV PRN (15:30)
[2020-03-15 16:09] LABS: CREATINE KINASE 32 IU/L (29-168)
[2020-03-15] MEDS: DOCUSATE SODIUM 100 MG CAP PO SCH (16:30)
[2020-03-15 19:30] VITALS: BP 98/72
--- NOTE | 2020-03-15 19:45 | NUR ---
BED SIDE SHIFT REPORT RECEIVED FROM DAY RN. PT HX SEIZURES. PT ALERT AND ORIENTED X3. RESPIRATIONS ARE EVEN AND UNLABORED. TELE ON. YELLOW NONSKID SOCKS ON. CALL LIGHT WITHIN REACH. BED LOCKED IN LOW POSITION. BED ALARM ON.
[2020-03-15 20:00] VITALS: BP 98/72
[2020-03-15] MEDS ORDERED: TEMAZEPAM 15 MG CAP PO PRN (21:00)
[2020-03-15] MEDS: ACETAMIN/BUTALBITAL/CAFFEINE TAB PO PRN (21:00)
[2020-03-16] VITALS (8 sets, daily range): BP systolic 97–115; BP diastolic 59–78
[2020-03-16 03:54] LABS: CREATINE KINASE MB 0.7 ng/mL (0-5.0)
[2020-03-16 05:37] LABS: BASOPHILS % 0.7 % (0.0-1.0); EOSINOPHILS # (AUTO) 0.1 (0.0-0.4); EOSINOPHILS % 2.2 % (0.0-6.0); HEMOGLOBIN 13.3 g/dL (12.0-16.0); LYMPHOCYTES # (AUTO) 2.7 (1.0-3.2); LYMPHOCYTES % 46.4 % (18.0-39.1); MEAN CORPUSCULAR HEMOGLOBIN 31.8 pg (28-32); MEAN CORPUSCULAR HGB CONC 33.3 g/dL (31-35); MEAN CORPUSCULAR VOLUME 95.7 fL (81-99); MONOCYTES # (AUTO) 0.5 (0.2-0.8); MONOCYTES % 8.5 % (4.4-11.3); NEUTROPHILS # (AUTO) 2.5 (2.1-6.9); PLATELET COUNT 164 x10e3/uL (140-360); RED BLOOD COUNT 4.18 x10e6/uL (3.6-5.1); RED CELL DISTRIBUTION WIDTH 11.9 % (11.7-14.4)
[2020-03-16 06:03] LABS: ALANINE AMINOTRANSFERASE 20 IU/L (0-55); ALBUMIN 3.4 g/dL (3.5-5.0); ALBUMIN/GLOBULIN RATIO 1.4 (0.8-2.0); ALKALINE PHOSPHATASE 47 IU/L (40-150); ANION GAP 10.8 mmol/L (8-16); BLOOD UREA NITROGEN 13 mg/dL (7-26); BUN/CREATININE RATIO 19 (6-25); CALCIUM 8.1 mg/dL (8.4-10.2); CARBON DIOXIDE 23 mmol/L (22-29); CHLORIDE 110 mmol/L (98-107); CHOL/HDL RATIO 3.8 (3.0-3.6); CHOLESTEROL 207 MD/DL (0-199); EST GLOMERULAR FILTRATION RATE > 60 ML/MIN (60-); GLUCOSE 86 mg/dL (74-118); HDL CHOLESTEROL 55 MG/DL (40-60); LDL CHOLESTEROL 129 MG/DL (60-130); POTASSIUM 3.8 mmol/L (3.5-5.1); SODIUM 140 mmol/L (136-145); TRIGLYCERIDES 117 MG/DL (0-149)
[2020-03-16 06:26] LABS: MAGNESIUM 1.9 MG/DL (1.3-2.1); PHOSPHORUS 3.4 MG/DL (2.3-4.7)
[2020-03-16 06:46] LABS: THYROID STIMULATING HORMONE 1.545 uIU/mL (0.350-4.940)
[2020-03-16 07:36] LABS: CREATINE KINASE 33 IU/L (29-168)
[2020-03-16] MEDS ORDERED: FAMOTIDINE 20 MG TAB PO SCH (07:50)
[2020-03-16] MEDS: DOCUSATE SODIUM 100 MG CAP PO SCH ×2 (09:00→15:50)
[2020-03-16] MEDS: ASPIRIN 81 MG ENTERIC COATED PO SCH (09:08)
[2020-03-16] MEDS: SERTRALINE HCL 50 MG TAB PO SCH (09:08)
[2020-03-16] MEDS: ACETAMIN/BUTALBITAL/CAFFEINE TAB PO PRN (11:00)
[2020-03-16] MEDS: FAMOTIDINE 20 MG/2 ML VIAL IV SCH (11:30)
--- NOTE | 2020-03-16 11:33 | Diagnostic Imaging Report ---
MRI BRAIN WO HISTORY: Passed out, syncope COMPARISON: Head CT 03/15/2020 TECHNIQUE: Sagittal T2, axial T2, axial T1, axial T2/FLAIR, axial gradient echo (or susceptibility weighted), coronal T2/FLAIR, and axial diffusion weighted MR images of the brain were obtained without contrast. DISCUSSION: Scalp/bone marrow: Unremarkable. Brain sulci: Appropriate for patient's age. Ventricles: Normal in size and configuration. No hydrocephalus. Extra-axial spaces: No masses or fluid collections. Parenchyma: A few small T2/FLAIR hyperintense foci throughout the supratentorial white matter are likely chronic microvascular ischemic changes. Otherwise, no mass, hemorrhage, or acute vascular insults. Vessels: Normal flow voids in major arteries and veins. Sellar/Suprasellar region: No abnormalities. Craniocervical junction: No abnormalities. Incidental findings: Minimal scattered paranasal sinus mucosal thickening, most prominent in the left sphenoid sinus IMPRESSION: 1. No acute intracranial abnormalities. 2. Minimal supratentorial chronic microvascular ischemic change. Signed by: Dr. Melchor Nunn M.D. on 03/16/2020 11:30 AM
--- NOTE | 2020-03-16 17:07 | History and Physical ---
PRIMARY CARE PHYSICIAN: Dr. Kiara Garcia. CHIEF COMPLAINT: Syncope and possible seizure. HISTORY OF PRESENT ILLNESS: The patient is a 59-year-old female admitted through [facility] that had a witnessed seizure, which, according to her , "did not last very long, but looked different than the other one she has had", it has been over three years since her last seizure and she does not take anti-epileptic medications at home. She woke up with a headache rated 7/10 on a 0-10 pain scale, got out of bed, was lightheaded, felt as if she would pass out, got back in bed and woke her , who says she then became minimally responsive, went completely unconscious for about 1-2 minutes, had no obvious seizure activity or bowel/bladder incontinence. He says her usual past seizures were with tonic colonic movements. The patient reportedly was postictal upon EMS arrival. The patient is currently seen in room 113 in no acute distress with her at bedside. PAST SURGICAL HISTORY: At age 16 had hysterectomy. FAMILY HISTORY: Mother had stroke, breast cancer, diabetes mellitus, open-heart surgery, and hypothyroidism. Father unknown history as he did not go to the doctor. SOCIAL HISTORY: The patient lives with her . 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 She denies any previous use of alcohol or illicit drugs. She smokes about a half a pack a day and has for 30 years; i.e., 15-pack years. ALLERGIES: PREGABALIN. HOME MEDICATIONS: Zoloft. REVIEW OF SYSTEMS: Constitutional: Denies any weight loss, weight gain, chills, or fever. EYES: Wears glasses. EAR, NOSE, AND THROAT: Ear aches at times, but none right now. CARDIOVASCULAR: She has palpitations at times, but none right now. GASTROINTESTINAL: She has nausea. States she has not eaten all day and is hungry. Last bowel movement was 03/14. NEUROLOGIC: Currently headache rated 8/10 on a 0-10 pain scale and she is extremely dizzy now. A 14-point review of systems was completed and the patient denies any problems with respiratory, genitourinary, psychiatric, integumentary, endocrine, hematologic/lymphatic, or musculoskeletal symptoms. OBJECTIVE: VITAL SIGNS: Temperature 97.9, afebrile, pulse 58, blood pressure 107/69, respirations 16, oxygen saturation 98% on room air. Height 5 feet 4 inches, weight 148 pounds. BMI 24.02. GENERAL: Supine, no acute distress. LUNGS: Clear to auscultation. Respiratory pattern even and unlabored. Diminished bases. HEENT: EOMI. Oropharynx clear. NECK: Supple. No lymphadenopathy, thyromegaly, or JVD. CARDIOVASCULAR: Regular rate and rhythm without murmur. ABDOMEN: Bowel sounds positive. Soft, nontender. EXTREMITIES: No pitting edema. No clubbing, cyanosis, or signs of DVT. NEUROLOGICAL: GCS 15. Nonfocal. LABORATORY DATA: WBC 7.28, hemoglobin 15.2, hematocrit 47.5, platelets 185,000, neutrophils 55.6%. PT 12.3, INR 0.87, PTT 28.3. Sodium 141, potassium 4.4, chloride 104, CO2 of 25, anion gap 16.4, BUN 17, creatinine 0.82, estimated GFR greater than 60, glucose 93, calcium 9.0, magnesium 4.4, total bilirubin 0.3, AST 18, ALT 25, alkaline phosphatase 56. Creatine kinase 34 then 32, CK-MB 0.8 then 0.7, troponin I less than 0.001 twice. Total protein 7.1, albumin 4.1, globulin 3.0. Urinalysis negative, RBC 11-20, WBC 6-10, few epithelial cells, rare bacteria. UDS negative. Coronavirus PCR collected and pending. Blood cultures x2 and urine culture are pending. IMAGING/OTHER: 12-lead EKG showed sinus rhythm with a heart rate of 62. CT of the brain negative for acute changes since the 10/[address], nonspecific sphenoid sinusitis. Chest x-ray showed bibasilar atelectasis. Bilateral carotid Doppler ultrasound ordered and pending. Echocardiogram ordered and pending. Bedside swallow evaluation ordered and pending. PT evaluation ordered pending. ASSESSMENT AND PLAN: 1. Possible witnessed seizure with past medical history of tonic clonic seizures. Dr. Garcia with Neurology has been consulted. No order for EEG at this time. Appreciate recommendations. 2. New onset headache with subsequent witnessed syncope. Currently, headache rated 8/10 on a 0-10 pain scale. NANCY Burnett alerted and asked to give Tylenol, Fioricet p.r.n. ordered if Tylenol ineffective. Orthostatic vital signs ordered. Maintain telemetry. Follow up on results of bilateral carotid Doppler ultrasound and echocardiogram. 3. Acute hypermagnesemia, magnesium level 4.4. The patient denies taking any magnesium supplement at home. Monitor magnesium level. 4. Nonspecific sphenoid sinusitis. The patient denies any tenderness over sinus areas. Headache may be at least contributed to by the sinusitis. WBC 7.28, afebrile. 5. Anxiety. Home dose of Zoloft resumed. 6. Bibasilar atelectasis. Incentive spirometry hourly while awake. 7. Sinus bradycardia, heart rate 58 earlier, monitor telemetry. 8. Prophylaxis. Pepcid and SCDs. H and P dictated, observation status, billing code [id number], time spent greater than 60 minutes. Dictated by Jesús Freitas NP MD [place]/SCOTT /[id number]
--- NOTE | 2020-03-16 19:40 | NUR ---
BEDSIDE SHIFT REPORT RECEIVED FROM DAY RN. PT IS ALERT AND ORIENTED X3. RESPIRATIONS ARE REGULAR AND UNLABORED. TELE ON. PT DENIES PAIN. SL LEFT AC- SITE HEALTHY AND PATENT. CALL LIGHT WITHIN REACH. BED IN LOW POSITION.
--- NOTE | 2020-03-16 21:13 | Consultation ---
DATE OF CONSULTATION: HISTORY OF PRESENT ILLNESS: The patient is a 59-year-old female, admitted after having a syncopal spell without any convulsions. The patient apparently was acting different after having reported headache, then she passed out without convulsion. She is back to her baseline at this time. The patient has history of what she calls nonepileptic seizure disorder, meaning she had similar spells, but workup did not show epilepsy. She was taken off any seizure medications, that was 3 years ago at least. Those spells started in 2012. PAST MEDICAL HISTORY: As above. ALLERGIES: LYRICA. MEDICATIONS: At home, see list. No antiepileptic medications. She takes Zoloft. SOCIAL HISTORY: She reports having a history of headaches and migraines. FAMILY HISTORY: Diabetes, breast cancer, hypothyroidism. REVIEW OF SYSTEMS: Other than that what was mentioned above, review of systems is negative. PHYSICAL EXAMINATION: VITAL SIGNS: Temperature 97.9, respiratory rate 16, pulse rate 82, blood pressure 107/69. HEAD AND NECK: No meningeal signs. LUNGS: Clear. ABDOMEN: Soft. HEART: Normal heart sounds. EXTREMITIES: Pulses present. NEUROLOGIC: The patient is alert. Follows commands. Normal language, memory, and fund of knowledge. Extraocular muscles were intact. Pupils reactive bilaterally and equal to light. Sensation is normal on the face. Uvula midline. Gag positive. Tongue midline. Shoulder shrug is normal. Motor, 5/5 in all extremities. Sensory normal to all modalities. Deep tendon reflexes are 2. Plantars are flexor. Gait is normal. IMAGING STUDIES: MRI of the brain done and shows no major abnormalities. Her carotid Dopplers are pending at this time. Echocardiogram was also done and results are pending. EEG in the process are being done. ASSESSMENT: The patient with a syncopal spell, most likely related to a hypotensive spell with a baseline of low blood pressure. This very likely is part of a migraine variant process considering the history she has. It is less likely that the spells represent an epileptic event. RECOMMEND: We will check the EEG as well as the rest of the workup including carotid Doppler and echocardiogram. No AEDs at this time. The patient was advised that she should not drive until cleared by her primary physician considering her condition. If the workup is unremarkable including the EEG as well as carotid Doppler and 2D echocardiogram, the patient can be discharged to follow up with her primary physician on the next available appointment. TOTAL TIME SPENT: Today was 110 minutes with more than half the time spent on counseling and coordination of care. Rachel Garcia MD AM/SCOTT /[id number]
[2020-03-17] VITALS (7 sets, daily range): BP systolic 97–113; BP diastolic 60–76
[2020-03-17 06:08] LABS: BASOPHILS # (AUTO) 0.1 (0.0-0.1); BASOPHILS % 0.8 % (0.0-1.0); EOSINOPHILS # (AUTO) 0.1 (0.0-0.4); EOSINOPHILS % 2.1 % (0.0-6.0); HEMATOCRIT 40.6 % (34.2-44.1); HEMOGLOBIN 13.6 g/dL (12.0-16.0); LYMPHOCYTES # (AUTO) 2.6 (1.0-3.2); LYMPHOCYTES % 39.4 % (18.0-39.1); MEAN CORPUSCULAR HEMOGLOBIN 31.4 pg (28-32); MEAN CORPUSCULAR HGB CONC 33.5 g/dL (31-35); MEAN CORPUSCULAR VOLUME 93.8 fL (81-99); MONOCYTES # (AUTO) 0.7 (0.2-0.8); MONOCYTES % 10.2 % (4.4-11.3); NEUTROPHILS # (AUTO) 3.1 (2.1-6.9); NEUTROPHILS % 47.2 % (38.7-80.0); PLATELET COUNT 169 x10e3/uL (140-360); RED BLOOD COUNT 4.33 x10e6/uL (3.6-5.1); RED CELL DISTRIBUTION WIDTH 11.9 % (11.7-14.4)
[2020-03-17 06:39] LABS: ANION GAP 10.7 mmol/L (8-16); BLOOD UREA NITROGEN 11 mg/dL (7-26); BUN/CREATININE RATIO 16 (6-25); CALCIUM 8.3 mg/dL (8.4-10.2); CARBON DIOXIDE 25 mmol/L (22-29); CHLORIDE 107 mmol/L (98-107); CREATININE, SERUM 0.67 mg/dL (0.57-1.11); EST GLOMERULAR FILTRATION RATE > 60 ML/MIN (60-); GLUCOSE 91 mg/dL (74-118); POTASSIUM 3.7 mmol/L (3.5-5.1); SODIUM 139 mmol/L (136-145)
--- NOTE | 2020-03-17 07:00 | NUR ---
Received report from off going nurse. Pt lying in bed and no apparent distress. Bed in lowest position.
[2020-03-17] MEDS: DOCUSATE SODIUM 100 MG CAP PO SCH (08:28)
[2020-03-17] MEDS: SERTRALINE HCL 50 MG TAB PO SCH ×2 (08:28→08:30)
[2020-03-17] MEDS: ASPIRIN 81 MG ENTERIC COATED PO SCH (08:28)
--- NOTE | 2020-03-17 11:40 | Progress Note ---
DATE: 03/17/2020 Cardiology Progress Note. SUBJECTIVE: The patient denies chest pain or shortness of breath. OBJECTIVE: VITAL SIGNS: Temperature 98 degrees, pulse 68, respiratory rate 20, blood pressure 100/69, and oxygen saturation 98% on room air. GENERAL: Awake, alert, no acute distress. LUNGS: Clear to auscultation bilaterally. No wheezes or crackles. CARDIOVASCULAR: Normal rate, regular rhythm. No murmur. Normal S1, S2. ABDOMEN: Soft and nontender. EXTREMITIES: No edema. CARDIAC MEDICATIONS: Aspirin 81 mg p.o. daily. LABORATORY DATA: WBC 6.65, hemoglobin 13.6, hematocrit 40.6, platelets 169. Sodium 139, potassium 3.7, chloride 107, CO2 of 25, BUN 11, creatinine 0.67. TELEMETRY: Telemetry was personally reviewed and interpreted, revealing normal sinus rhythm. IMPRESSION: Syncope. RECOMMENDATIONS: Check orthostatic vitals. Carotid Doppler was done without hemodynamically significant stenosis. We will review patient's echocardiogram. No arrhythmias have been seen on telemetry evaluation for seizures per Neurology. Thank you for this consult. We will continue to follow. Emma Kulkarni MD ABS/MODL /[id number]
--- NOTE | 2020-03-17 12:15 | Progress Note ---
DATE: 03/16/2020 CONSULTING PHYSICIAN: 1. Dr. Rachel Garcia with Neurology. 2. Dr. Octavio Saldaña with Cardiology. PRIMARY CARE PHYSICIAN: Dr. Idalia Dowell. OUTPATIENT PSYCHIATRIST: Dr. Kiara Garcia. SUBJECTIVE: The patient still has some mild dizziness, but much improved compared to yesterday. Headache is also improved, rated 2/10 on a 0-10 pain scale and Fioricet did help per the patient. No earache or palpitations today. No complaints of nausea. She ate no breakfast, about 20% of lunch and 50% of dinner. She attributes her poor appetite to anxiety/depression. She did have a bowel movement today. No chills, still having some nasal stuffiness. She suffered with anxiety since [id number] and has had headaches for the last five or six years. OBJECTIVE: VITAL SIGNS: Temperature 97.8, pulse 59, blood pressure 101/65, respirations 19, oxygen saturation 98% on room air. GENERAL: Supine, head of bed elevated. No acute distress. LUNGS: Clear to auscultation. Respiratory pattern even and unlabored. No supplemental oxygen, using incentive spirometry regularly. HEENT: EOMI. NECK: Supple. CARDIOVASCULAR: Regular rate and rhythm without murmur. ABDOMEN: Bowel sounds positive. Soft, nontender. EXTREMITIES: No pitting edema. No clubbing, cyanosis, or signs of DVT. NEUROLOGICAL: GCS 15. Nonfocal. LABORATORY DATA: WBCs 5.91, hemoglobin 13.3, hematocrit 40, platelets 164,000. Sodium 140, potassium 3.8, chloride 110, CO2 23, BUN 13, creatinine 0.7, estimated GFR greater than 60, glucose 86. Hemoglobin A1c 5.2%. Calcium 8.1, phosphorus 3.4, magnesium 1.9, total bilirubin 0.3, AST 15, ALT 20, alkaline phosphatase 47. Creatine kinase 33 twice today. CK-MB 0.7 twice today. Troponin I 0.001 then subsequently less than 0.001. Total protein 5.8, albumin 3.4, globulin 2.4, triglycerides 117, cholesterol 207, LDL 129, HDL 55. Thyroid-stimulating hormone 1.545, free T4 yesterday 0.96. Phosphorus was 3.4, magnesium 1.9. SEROLOGY: Coronavirus PCR collected on 03/15 is still pending. MICROBIOLOGY: Blood cultures x2 were collected on 03/15 and one of the bottles growth was detected. Culture workup has been ordered. Blood cultures x2 recollected today 03/16. Preliminary urine culture showed no growth after 18 to 24 hours. IMAGING/OTHER: MRI of the brain without contrast today 03/16 showed no acute intracranial abnormalities, minimal supratentorial chronic microvascular ischemic change. On 03/15, echocardiogram showed ejection fraction of 50%. On 03/15, bilateral carotid Doppler ultrasound showed evidence of carotid disease without significant stenosis on the left side. On 03/15, 12-lead EKG showed normal sinus rhythm with heart rate of 62. ASSESSMENT AND PLAN: 1. Possible witnessed seizure with past medical history of tonic clonic seizures. Neurologist saw and evaluated the patient today. The patient can follow up with him on an outpatient basis and that she should be given instructions of no driving. No need for anti-epileptic anti medications. EEG not needed. 2. Acute on chronic headache with subsequent witnessed syncope. Headache yesterday, 8, but today improved to 2/10, Fioricet effective. Echocardiogram and carotid Doppler ultrasound generally within normal limits. Per recommendations from Dr. Ki Dong, who is covering for Dr. Foreman today Cardiology consulted due to patient's witnessed syncope. Appreciate recommendations. 3. Acute hypermagnesemia with admitting magnesium level 4.4. Magnesium level 1.9 (4.4). No use of magnesium supplements at home. Hypermagnesemia resolved. 4. Possible bacteremia. WBCs 5.91 (7.28), afebrile. Case discussed with Dr. Foreman and orders entered to recollect blood cultures. We will await results. 5. Nonspecific sphenoid sinusitis. No tenderness over sinus areas. We will order fluticasone as the patient does have complaints of stuffiness. 6. Acute on chronic anxiety. Continue home dose of Zoloft. 7. Bibasilar atelectasis. Incentive spirometry hourly while awake. 8. Asymptomatic sinus bradycardia, heart rate below 60. Monitor telemetry. 9. Prophylaxis. Pepcid and SCDs. 10. Inpatient, billing code [id number], time spent greater than 35 minutes. Dictated by Jesús Freitas, ADMINISTRATIVE TECHNICIAN MD S[facility] Hill/JALEESAL /[id number]
[2020-03-17] MEDS ORDERED: SODIUM CHLORIDE 0.9% 1000ML 1,000 ML IV ONE (12:27)
[2020-03-17] MEDS ORDERED: ONDANSETRON HCL 4 MG ORAL DISINTEGRATING TAB PO PRN (13:15)
--- NOTE | 2020-03-17 14:12 | NUR ---
Discontinuing PT services since patient is independent in functional mobility. Thank you. Addendum: 03/17/20 at 1413 by Owen enrique PT Amended: Links added.
--- NOTE | 2020-03-17 15:00 | NUR ---
Called Dr. Marinelli with orthostatic vitals following 1L NS Bolus. Sitting 112/72 P: 63 Standing BP: 116/66 P: 69. Dr. Marinelli gave verbal to discharge home.
--- NOTE | 2020-03-17 15:17 | NUR ---
IV removed at 1511; pt tolerated well. IV no swelling, no infiltration, and iv cath intact. Pt off floor for home via wheelchair. Pt in no apparent distress.
--- NOTE | 2020-03-17 20:02 | Progress Note ---
DATE: SUBJECTIVE: The patient had no more spells. She was found to be orthostatic with low blood pressure and was given a bolus of IV fluids. Seen by Cardiology and cleared by Cardiology. Workup so far negative including carotid Doppler, EEG, and echocardiogram. The patient wants to go home. MEDICATIONS: As above. PHYSICAL EXAMINATION: LUNGS: Clear. ABDOMEN: Soft. EXTREMITIES: Good pulses. HEART: Normal heart sounds. Regular rhythm. NEUROLOGIC: Alert and oriented. Follows commands. Language function is normal. Full visual crawford to confrontation. Extraocular muscle movements were intact. Pupils reactive bilaterally to light. Sensation is normal on the face. Uvula midline. Tongue midline. Gag positive. Shoulder shrug is normal. Motor is 5/5 in all extremities. Sensory normal to all modalities. Deep tendon reflexes are 2. Plantars are flexor. Gait is normal. ASSESSMENT: Syncopal spell with migraine headache, probably representing migraine variant. The patient was given the diagnosis of nonepileptic seizure disorder previously. I do not believe she will benefit from antiepileptic medications. She needs to follow up with her primary care physician. Keep well hydration to keep her blood pressure in normal range. She usually runs in the low blood pressure. If cleared by Cardiology, she can be cleared by Neurology to follow up as an outpatient with no driving at this time. Rachel Garcia MD AM/SCOTT /[id number]
--- NOTE | 2020-03-17 20:17 | Electroencephalogram ---
DATE OF STUDY: 03/16/2020 REQUESTING PHYSICIAN: PROCEDURE: EEG. TECHNIQUE: An 18 channels of 20-minute EEG recording utilizing international 10/20 system done today. EEG data was digitally acquired and analyzed. The EEG is of low technical quality, made the interpretation difficult. BACKGROUND ACTIVITY: Background rhythm consists of well regulated 10 hertz rhythmic waveforms, symmetrically distributed over both posterior quadrants and . ACTIVATION: Unremarkable. Sleep, awake, and asleep. IMPRESSION: Unremarkable awake and asleep EEG. No electrographic seizures recorded. Rachel Garcia MD AM/SCOTT /[id number]
--- NOTE | 2020-03-17 21:23 | Discharge Summary ---
PRIMARY CARE PHYSICIAN: Dr. Idalia Dowell. CONSULTING PHYSICIANS: 1. Dr. Rachel Garcia with Neurology. 2. Dr. Octavio Saldaña with Cardiology. 3. Outpatient psychiatrist Dr. Kiara Garcia. CHIEF COMPLAINT: Syncope and possible seizure. HISTORY OF PRESENT ILLNESS: The patient is a 59-year-old female admitted to the emergency department via [facility] who had witnessed a seizure, which according to her "did not last very long, but looked different than the other one she has had." It had been over three years since her last seizure, and she does not take antiepileptic medications at home. She woke up with a headache rated 7/10 on a 0 to 10 pain scale, got out of bed, was lightheaded, felt as if she would pass out, got back in bed and woke her who says that she then became minimally responsive and completely unconscious for about 1 to 2 minutes. Had no obvious seizure activity or bowel/bladder incontinence. He says her usual past seizures were with tonic-clonic movements. The patient reportedly was postictal upon EMS arrival. PAST SURGICAL HISTORY: Hysterectomy at age 16. FAMILY HISTORY: Mother had stroke, breast cancer, diabetes mellitus, open-heart surgery and hypothyroidism. Father unknown history as he did not go to the doctor. SOCIAL HISTORY: The patient lives with her . 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 She denies any previous use of alcohol or illicit drugs. She smokes about half a pack a day and has for 30 years, i.e. 15 pack years. ALLERGIES: PREGABALIN. HOME MEDICATIONS: Zoloft. ADMITTING DIAGNOSES: 1. Possible witnessed seizure with past medical history of tonic-clonic seizures. 2. New onset headache with subsequent witnessed syncope. 3. Acute hypermagnesemia, magnesium level 4.4. 4. Nonspecific sphenoid sinusitis. 5. Anxiety. 6. Bibasilar atelectasis. 7. Sinus bradycardia. DISCHARGE DIAGNOSES: 1. Possible witnessed seizure with past medical history of tonic clonic seizures. 2. Acute on chronic headache with subsequent witnessed syncope, orthostatic hypotension, headache, improving. 3. Acute hypermagnesemia with admitting magnesium level 4.4, resolved. 4. Possible bacteremia ruled out. 5. Nonspecific sphenoid sinusitis. 6. Acute on chronic anxiety. 7. Bibasilar atelectasis. 8. Asymptomatic sinus bradycardia. Coronavirus PCR collected 03/15 was not detected. Blood cultures x2 were collected on 03/15 and in one of the bottles growth was detected. Culture workup has been ordered. Blood cultures x2 recollected on 03/16. Preliminary urine culture showed no growth after 18 to 24 hours, however, bacteremia is unlikely as WBCs today at 6.65. The patient has been afebrile with a temperature today of 98.0. Heart rate today 68, blood pressure 100/69, respirations 20, oxygen saturation 99%. Regarding her neurological workup, the patient had an EEG which was negative. She had passed out without convulsion and she is back to her baseline. The patient has a history of what she calls nonepileptic seizure disorder admitting that she had similar spells, but workup did not show epilepsy in the past. The patient was advised that she should not drive until cleared by her primary physician considering her condition as per documentation from Neurology. On 03/15, CT of the brain showed no intracranial abnormalities, nonspecific sphenoid sinusitis. No other changes from the prior head CT of 10/28/2019. Chest x-ray had shown bibasilar atelectasis. On 03/15, carotid Doppler ultrasound showed evidence of carotid disease without significant stenosis on the left side. There was no hemodynamically significant stenosis per preliminary echocardiogram results. The ejection fraction was 50%. On 03/15, 12-lead EKG had shown normal sinus rhythm with a heart rate of 62. MRI of the brain without contrast on 03/16 showed no acute intracranial abnormalities. Minimal supratentorial chronic microvascular ischemic change. She had a fairly severe headache on admission, rated high like 8/10, improved on 03/16 to 2/10 and she stated Fioricet was effective. Magnesium level had been elevated at 4.4, but upon re-collection later was 1.9. Home dose of Zoloft was continued for anxiety. Sinus bradycardia was asymptomatic. She did have orthostatic hypotension, sitting blood pressure 113/76 with a heart rate of 64, standing 101/76. After a 1 L bolus of normal saline, her blood pressure did improve to 113/76. Last documented blood pressure 12:10 was 101/76. She is to continue on cardiac diet. Activity level as tolerated. Follow up with her PCP in 1 to 2 weeks. Follow up with Cardiology in 7 to 10 days. Dictated by Jesús Freitas, BEATER HEAD MD S[facility] Hill/SCOTT /[id number]
== END 2020-03-17 15:17 | disposition home or self-care (01) | DRG 101 ==
LOC: ER 09:25 → ERHOLD 11:49 → MED/SURG 14:35 → OBSVTOIN 03-16 18:38
PROVIDERS: ADMIT Internal Medicine; ATTEND Internal Medicine
DX: R56.9 Unspecified convulsions (principal); J98.11 Atelectasis; I95.1 Orthostatic hypotension; G43.809 Other migraine, not intractable, without status migrainosus; E83.41 Hypermagnesemia; J32.3 Chronic sphenoidal sinusitis; F41.9 Anxiety disorder, unspecified; R00.1 Bradycardia, unspecified; Z20.828 Contact with and (suspected) exposure to other viral communicable diseases
CPT/HCPCS: 36415; 70450; 70551; 71045; 80048; 80053; 80061; 80307; 81001; 82550; 82553; 83036; 83735; 84100; 84439; 84443; 84484; 85025; 85610; 85730; 87040; 87071; 87086; 87205; 93005; 93306; 93880; 95819; 99284; G0378; J7030; U0002

== ENCOUNTER → 2022-05-03 | Emergency (ER) | payer BC ==
[~2022-05-03] VITALS: Ht 162.6 cm; Wt 61.2 kg
[~2022-05-03] MED LIST changes: +HYDROXYZINE HCL 25 MG TAB PO SCH
[2022-05-03 13:06] LABS: BASOPHILS % 0.6 % (0.0-1.0); EOSINOPHILS # (AUTO) 0.1 (0.0-0.4); EOSINOPHILS % 1.5 % (0.0-6.0); HEMOGLOBIN 15.8 g/dL (12.0-16.0); LYMPHOCYTES # (AUTO) 2.2 (1.0-3.2); LYMPHOCYTES % 34.1 % (18.0-39.1); MEAN CORPUSCULAR HEMOGLOBIN 32.5 pg (28-32); MEAN CORPUSCULAR HGB CONC 33.6 g/dL (31-35); MEAN CORPUSCULAR VOLUME 96.7 fL (81-99); MONOCYTES # (AUTO) 0.6 (0.2-0.8); MONOCYTES % 8.8 % (4.4-11.3); NEUTROPHILS # (AUTO) 3.6 (2.1-6.9); NEUTROPHILS % 54.7 % (38.7-80.0); PLATELET COUNT 195 x10e3/uL (140-360); RED BLOOD COUNT 4.86 x10e6/uL (3.6-5.1); RED CELL DISTRIBUTION WIDTH 11.8 % (11.7-14.4)
[2022-05-03 13:14] LABS: INR 0.89; PROTHROMBIN TIME 12.2 seconds (11.9-14.5)
[2022-05-03 13:23] LABS: ALBUMIN 4.5 g/dL (3.5-5.0); ALBUMIN/GLOBULIN RATIO 1.5 (0.8-2.0); ANION GAP 17.5 mmol/L (8-16); CALCIUM 9.5 mg/dL (8.4-10.2); CREATININE, SERUM 0.75 mg/dL (0.57-1.11); POTASSIUM 4.5 mmol/L (3.5-5.1)
[2022-05-03 15:29] VITALS: BP 102/69
== END | disposition home or self-care (01) ==
LOC: ER 12:39
DX: R42 Dizziness and giddiness (principal); R94.31 Abnormal electrocardiogram [ECG] [EKG]
CPT/HCPCS: 36415; 70450; 71045; 80053; 84484; 85025; 85610; 93005; 99284; J3410